=== PATIENT | female | born 1935 | race Two or more races ===

== ENCOUNTER 2016-12-03 12:55 | Emergency (ER) | payer MEDICARE, OTHER ==
[~2016-12-03] VITALS: Ht 152.4 cm; Wt 63.5 kg
[~2016-12-03 12:55] MED LIST: AMLODIPINE BESY10 MG ORAL; CIPROFLOXACIN500 M2 ORAL; COREG12.5 MG ORAL; FISH OIL500 M2 PO; FUROSEMIDE20 M1 ORAL; GLYBURIDE-METF1 EACH PO; IBUPROFEN600 MG ORAL; KEFLEX500 MG ORAL; LANTUS5 UNITS SUBQ; LISINOPRIL20 MG ORAL; METFORMIN HCL850 M1 ORAL; METOPROLOL SUC100 MG ORAL; METOPROLOL SUCC50 MG ORAL; NORCO 5-325 TA1 EAC1 ORAL; OMEPRAZOLE20 M3 ORAL; RAMIPRIL5 MG ORAL; REGULAR INSULIN SS; ZOCOR20 MG ORAL; [UNRECOGNIZED DRUG - REMARK]; [UNRECOGNIZED DRUG - REMARK]; cholesterol pill
[2016-12-03 13:22] VITALS: BP 183/68
--- NOTE | 2016-12-03 13:56 | Emergency Room Report ---
History of Present Illness General Chief Complaint: Pain Source: Patient (Parker Doshi M.D.) Present Illness HPI The patient presents with dysuria flank pain. She's not been eating well for 3 days. She's lost her appetite. Is not vomiting and has no diarrhea. Denies any fevers or chills. She started to feel weak today and her daughter brought her to the ED. Pain 6/10, bilateral flanks/lower back, not radiate. She's had UTIs in the past. H/O DM, HTN. She believes her sugars are slightly high (mid 100s). In addition, she is complaining of neuropathy pain. She is taking Gabapetin 100 mg TID. This is not helping. This pain is 8/10, burning, constant, not radiating. (Parker Doshi M.D.) Allergies: Coded Allergies: No Known Allergies (Verified , 08/26/08) Patient History Past Medical History: see triage record Social History Narrative with daughter Born in [place] Now: No Reviewed Nursing Documentation: PMH: Agreed, PSxH: Agreed (Parker Doshi M.D.) Nursing Documentation-PMH Hx Cardiac Problems: Yes Hx Hypertension: Yes Hx Diabetes: Yes Hx Cancer: No Hx Gastrointestinal Problems: Yes Hx Neurological Problems: Yes Hx Transient Ischemic Attacks: Yes (Parker Doshi M.D.) Review of Systems All Other Systems: negative except mentioned in HPI (Parker Doshi M.D.) Physical Exam Vital Signs Date Time Temp Pulse Resp B/P Pulse Ox O2 Delivery O2 Flow Rate FiO2 12/03/16 13:12 98.1 84 15 183/68 99 Room Air Sp02 EP Interpretation: reviewed, normal General Appearance: well appearing, no apparent distress, GCS 15 Head: normocephalic Eyes: bilateral eye PERRL, bilateral eye normal inspection ENT: moist mucus membranes Neck: supple Respiratory: lungs clear, normal breath sounds Cardiovascular #1: regular rate, rhythm Cardiovascular #2: 2+ radial (R) Gastrointestinal: normal inspection, normal bowel sounds, non tender, no mass, non-distended Genitourinary: no CVA tenderness Musculoskeletal: gait/station normal, normal range of motion, other - minimal back tenderness Neurologic: alert, oriented x3, grossly normal Psychiatric: mood/affect normal Skin: normal inspection, warm/dry (Parker Doshi M.D.) Medical Decision Making Diagnostic Impression: Primary Impression: UTI (urinary tract infection) Qualified Codes: N30.00 - Acute cystitis without hematuria Additional Impressions: Peripheral neuropathy Qualified Codes: G62.9 - Polyneuropathy, unspecified Diabetes Qualified Codes: E11.49 - Type 2 diabetes mellitus with other diabetic neurological complication; 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 She has dysuria flank pain and neuropathy pain. Differential includes UTI, pyelonephritis, peripheral neuropathy, renal stone, diabetes in poor control amongst others. She also feels weakness and lack of appetite. This is diabetes her heart needs to be evaluated. Evaluation will be with EKG, abdominal film, lab including urinalysis. to be treated w Pepcid. Is remarkable for a normal white count and H&H. There's mild renal insufficiency. Blood sugar is elevated. In addition she has pyuria. Antibiotic for began IV. The patient is improved with treatment. She states the pain is manageable in her extremities and also in her back. She is given a dose of metformin and also lisinopril. Offered patient to be admitted to the hospital. She wants to be treated at home. As long discussion about how her doctors needed to address her chronic pain. Also she was advised that if she is not doing well to return. She was greatly improved looking forward to getting better home. Patient stable for outpatient observation and treatment. Laboratory Tests Test 12/03/16 13:41 12/03/16 15:05 Urine Color Pale yellow Urine Appearance Clear Urine pH 5 (4.5-8.0) Urine Specific [place] 1.015 (1.005-1.035) Urine Protein 3+ (NEGATIVE) H Urine Glucose (UA) 4+ (NEGATIVE) H Urine Ketones Negative (NEGATIVE) Urine Occult Blood 2+ (NEGATIVE) H Urine Nitrite Positive (NEGATIVE) H Urine Bilirubin Negative (NEGATIVE) Urine Urobilinogen Normal MG/DL (0.0-1.0) Urine Leukocyte Esterase 3+ (NEGATIVE) H Urine RBC 5-10 /HPF (0 - 2) H Urine WBC 30-40 /HPF (0 - 2) H Urine Squamous Epithelial Cells Few /LPF (NONE/OCC) Urine Bacteria Moderate /HPF (NONE) H White Blood Count 6.8 K/UL (4.8-10.8) Red Blood Count 3.70 M/UL (4.20-5.40) L Hemoglobin 10.6 G/DL (12.0-16.0) L Hematocrit 32.6 % (37.0-47.0) L Mean Corpuscular Volume 88 FL (80-99) Mean Corpuscular Hemoglobin 28.7 PG (27.0-31.0) Mean Corpuscular Hemoglobin Concent 32.6 G/DL (32.0-36.0) Red Cell Distribution Width 12.3 % (11.6-14.8) Platelet Count 284 K/UL (150-450) Mean Platelet Volume 9.1 FL (6.5-10.1) Neutrophils (%) (Auto) 69.7 % (45.0-75.0) Lymphocytes (%) (Auto) 21.6 % (20.0-45.0) Monocytes (%) (Auto) 6.3 % (1.0-10.0) Eosinophils (%) (Auto) 1.2 % (0.0-3.0) Basophils (%) (Auto) 1.2 % (0.0-2.0) Prothrombin Time 9.8 SEC (9.30-11.50) Prothrombin Time INR 0.9 (0.9-1.1) PTT 24 SEC (23-33) Sodium Level 138 mEQ/L (135-145) Potassium Level 4.6 mEQ/L (3.4-4.9) Chloride Level 98 mEQ/L (98-107) Carbon Dioxide Level 22 mEQ/L (20-30) Anion Gap 18 (5-15) H Blood Urea Nitrogen 31 mg/dL (7-23) H Creatinine 1.3 mg/dL (0.5-0.9) H Estimate Glomerular Filtration Rate mL/min (>60) Glucose Level 303 mg/dL (74-106) H Calcium Level 9.1 mg/dL (8.6-10.2) Total Bilirubin < 0.2 mg/dL (0.0-1.2) Aspartate Amino Transferase (AST) 16 U/L (5-40) Alanine Aminotransferase (ALT) 13 U/L (3-33) Alkaline Phosphatase 58 U/L (35-104) Troponin I < 0.30 ng/mL (<=0.30) Total Protein 6.8 g/dL (6.6-8.7) Albumin 3.7 g/dL (3.5-5.2) Globulin 3.1 g/dL Albumin/Globulin Ratio 1.1 (1.0-2.7) Lipase 52 U/L (< 60) (Parkre Doshi M.D.) ER Course Urine Cx came thru showing UTI Reviewed chart, patient not sent with Rx Called patient and left VM at 1234pm. No answer. Asked Sudeep Rodas to send certified letter to patient. (JOHN LARA M.D.) Chest X-Ray Diagnostic Results Chest X-Ray Ordered: Yes # of Views/Limited/Complete: 1 View EP Interpretation: Yes Interpretation: no consolidation, no effusion, no pneumothorax Indication: Other Impression: No acute disease (Parker Doshi M.D.) Other X-Ray Diagnostic Results # of Views/Limited Vs Complete: 1 View EP Interpretation: Yes Interpretation: other - NSBGP, stool, no SBO Indication: Pain Impression: Other Interpreting ER Provider: valentine (Parker Doshi M.D.) Last Vital Signs Date Time Temp Pulse Resp B/P Pulse Ox O2 Delivery O2 Flow Rate FiO2 12/03/16 17:56 98.1 22 155/55 100 Room Air 12/03/16 13:12 84 Status: improved (Parker Doshi M.D.) Disposition: HOME, SELF-CARE Condition: Improved Scripts Ibuprofen* (MOTRIN*) 400 Mg Tablet 400 MG ORAL Q8H Y for foot pain, #20 TAB 0 Refills Prov: Parker Doshi M.D. 12/03/16 Vitamin B Complex (B COMPLETE) 1 Each Tablet 1 TAB ORAL DAILY, #30 TAB Prov: Parker Doshi M.D. 12/03/16 Tramadol Hcl* (ULTRAM*) 50 Mg Tablet 50 MG ORAL Q6H Y for For Pain, #10 TAB 0 Refills Prov: Parker Doshi M.D. 12/03/16 Parker Doshi M.D. Dec 03, 2016 13:56 JOHN LARA M.D. Dec 05, 2016 12:34
[2016-12-03] MEDS ORDERED: Famotidine 20 MG/ 2ML VIAL IVP ONE (14:00)
[2016-12-03] MEDS ORDERED: Ketorolac 30mg Inj IV ONE (14:00)
[2016-12-03 14:04] LABS: APPEARANCE,URINE CLEAR; KETONES,URINE NEGATIVE (NEGATIVE); LEUKOCYTE ESTERASE ,URINE 3+ (NEGATIVE); NITRITE,URINE POSITIVE (NEGATIVE); PH,URINE 5 (4.5-8.0); PROTEIN,URINE 3+ (NEGATIVE); UROBILINOGEN,URINE NORMAL MG/DL (0.0-1.0)
[2016-12-03 14:11] LABS: BACTERIA,URINE MODERATE /HPF; SQUAMOUS EPITHELIAL CELL,UR FEW /LPF (NONE/OCC); WBC,URINE 30-40 /HPF (0 - 2)
[2016-12-03] MEDS ORDERED: cefTRIAXone 1 GM in NS 55 ML IVPB ONE (14:45)
--- NOTE | 2016-12-03 15:13 | Diagnostic Imaging Report ---
Indication: FLANK Technique: One view of the chest Comparison: none Findings: Lungs and pleural spaces are clear. Heart size is normal. The aorta is tortuous and calcified. No significant change Impression: No acute process
[2016-12-03 15:31] LABS: BASOPHILS % (AUTO) 1.2 % (0.0-2.0); EOSINOPHILS % (AUTO) 1.2 % (0.0-3.0); LYMPHOCYTES % (AUTO) 21.6 % (20.0-45.0); MEAN CORPUSCULAR HEMOGLOBIN 28.7 PG (27.0-31.0); MEAN CORPUSCULAR HGB CONC 32.6 G/DL (32.0-36.0); MEAN CORPUSCULAR VOLUME 88 FL (80-99); MEAN PLATELET VOLUME 9.1 FL (6.5-10.1); MONOCYTES % (AUTO) 6.3 % (1.0-10.0); NEUTROPHILS % (AUTO) 69.7 % (45.0-75.0); PLATELET COUNT 284 K/UL (150-450); RED CELL DISTRIBUTION WIDTH 12.3 % (11.6-14.8); WHITE BLOOD COUNT 6.8 K/UL (4.8-10.8)
[2016-12-03 15:44] LABS: INR 0.9 (0.9-1.1); PROTHROMBIN TIME 9.8 SEC (9.30-11.50)
[2016-12-03 15:49] LABS: TROPONIN I < 0.30 ng/mL (<=0.30)
[2016-12-03 15:52] LABS: ALANINE AMINOTRANSFERASE 13 U/L (3-33); ALBUMIN/GLOBULIN RATIO 1.1 (1.0-2.7); ANION GAP 18 (5-15); ASPARTATE AMINO TRANSFERASE 16 U/L (5-40); CALCIUM 9.1 mg/dL (8.6-10.2); CARBON DIOXIDE 22 mEQ/L (20-30); CHLORIDE 98 mEQ/L (98-107); CREATININE 1.3 mg/dL (0.5-0.9); HEMOLYSIS 5; LIPASE 52 U/L (< 60); POTASSIUM 4.6 mEQ/L (3.4-4.9); SODIUM 138 mEQ/L (135-145); TOTAL PROTEIN 6.8 g/dL (6.6-8.7)
[2016-12-03] MEDS ORDERED: Lisinopril 10mg tab ORAL ONE (16:15)
[2016-12-03] MEDS ORDERED: B COMPLETE1 EAC1 ORAL (16:26)
[2016-12-03] MEDS ORDERED: IBUPROFEN400 MG ORAL (16:26)
[2016-12-03] MEDS ORDERED: TRAMADOL HCL50 MG ORAL (16:26)
[2016-12-03] MEDS: metFORMIN 500mg tab ORAL SCH ×2 (16:47→17:50)
--- NOTE | 2016-12-03 17:46 | Diagnostic Imaging Report ---
Indication: Abdominal pain Technique: Supine view of the abdomen Comparison: 06/14/2010 Findings: Bowel gas pattern is unremarkable. There are degenerative changes of the lumbosacral junction. No unusual masses or calcifications. There is evidence of interstitial disease at the lung bases Impression: Findings as noted. No definite acute process
[2016-12-03 17:54] VITALS: BP 155/55
[2016-12-03 17:56] VITALS: BP 155/55
== END 2016-12-03 18:08 | disposition home or self-care (01) ==
LOC: EMR 14:02
DX: N30.00 Acute cystitis without hematuria (principal); G62.9 Polyneuropathy, unspecified; E11.49 Type 2 diabetes mellitus with other diabetic neurological complication; I10 Essential (primary) hypertension; Z86.73 Personal history of transient ischemic attack (TIA), and cerebral infarction without residual deficits
CPT/HCPCS: 36415; 71010; 74000; 80053; 81003; 83690; 84484; 85025; 85610; 85730; 87086; 87181; 96374; 96375; 99284; J0696; J1885; J2405; J7040; S0028

== ENCOUNTER 2017-03-25 22:37 | Inpatient (IN) | payer OTHER, MEDICARE ==
[~2017-03-25] VITALS: Ht 154.9 cm; Wt 60.8 kg
[~2017-03-25 22:37] MED LIST changes: +B COMPLETE1 EAC1 ORAL; +IBUPROFEN400 MG ORAL; +NITROFURANTOIN100 M2 ORAL; +TRAMADOL HCL50 MG ORAL
[2017-03-25 23:27] LABS: BASOPHILS % (AUTO) 1.2 % (0.0-2.0); EOSINOPHILS % (AUTO) 0.8 % (0.0-3.0); LYMPHOCYTES % (AUTO) 11.9 % (20.0-45.0); MEAN CORPUSCULAR HEMOGLOBIN 29.7 PG (27.0-31.0); MEAN CORPUSCULAR HGB CONC 34.6 G/DL (32.0-36.0); MEAN CORPUSCULAR VOLUME 86 FL (80-99); MEAN PLATELET VOLUME 8.5 FL (6.5-10.1); MONOCYTES % (AUTO) 9.2 % (1.0-10.0); NEUTROPHILS % (AUTO) 76.9 % (45.0-75.0); PLATELET COUNT 353 K/UL (150-450); RED BLOOD COUNT 3.64 M/UL (4.20-5.40); WHITE BLOOD COUNT 10.4 K/UL (4.8-10.8)
[2017-03-25 23:35] LABS: ALANINE AMINOTRANSFERASE 16 U/L (12-78); ALBUMIN/GLOBULIN RATIO 0.7 (1.0-2.7); ANION GAP 9 mmol/L (5-15); ASPARTATE AMINO TRANSFERASE 14 U/L (15-37); CALCIUM 9.1 MG/DL (8.5-10.1); CARBON DIOXIDE 27 MMOL/L (21-32); CHLORIDE 99 MMOL/L (98-107); CREATININE 1.4 MG/DL (0.55-1.30); LIPASE 117 U/L (73-393); POTASSIUM 4.2 MMOL/L (3.5-5.1); SODIUM 135 MMOL/L (136-145); TOTAL PROTEIN 7.1 G/DL (6.4-8.2)
[2017-03-26] VITALS (8 sets, daily range): BP systolic 126–176; BP diastolic 56–86
--- NOTE | 2017-03-26 02:50 | Emergency Room Report ---
History of Present Illness General Chief Complaint: Abdominal Pain Source: Patient Present Illness HPI Patient presents with complaints of abdominal pain low back pain Patient had a fall yesterday he was seen at [facility] hospital Records indicate multiple imaging of the right elbow and extremities however the patient now complains that she has increased pain left upper quadrant and the lower back Denies any focal weakness denies any chest pain or shortness of breath denies any vomiting however she also does have a headache Patient feels nauseated and states that she cannot vomit Allergies: Coded Allergies: No Known Allergies (Verified , 03/25/17) Patient History Past Medical History: see triage record Pertinent Family History: unable to obtain Last Menstrual Period: n/a Reviewed Nursing Documentation: PMH: Agreed, PSxH: Agreed Nursing Documentation-PMH Past Medical History: No History, Except For Hx Cardiac Problems: Yes Hx Hypertension: Yes Hx Diabetes: Yes Hx Cancer: No Hx Gastrointestinal Problems: Yes Hx Neurological Problems: Yes Hx Transient Ischemic Attacks: Yes Review of Systems All Other Systems: negative except mentioned in HPI Physical Exam Vital Signs Date Time Temp Pulse Resp B/P (MAP) Pulse Ox O2 Delivery O2 Flow Rate FiO2 03/25/17 22:51 97.9 63 51 166/62 98 Room Air Sp02 EP Interpretation: reviewed, normal General Appearance: no apparent distress Head: normocephalic, atraumatic Eyes: bilateral eye PERRL, bilateral eye EOMI ENT: normal pharynx Neck: full range of motion, supple Respiratory: lungs clear, normal breath sounds Cardiovascular #1: regular rate, rhythm, no edema Gastrointestinal: soft, tenderness - Left upper quadrant Genitourinary: no CVA tenderness Musculoskeletal: other - Patient is tender diffusely L-spine Neurologic: alert, oriented x3, responsive Skin: no rash Lymphatic: no adenopathy Medical Decision Making Diagnostic Impression: Primary Impression: Hypertensive urgency, malignant Additional Impressions: Sacral fracture, closed Fracture of lumbar spine ER Course Given the patient's presentation and history given the abdominal pain CT imaging was obtained patient also had imaging of her lower back Radiology does reports of sacral fracture along with L2 and L3 lumbar fractures patient required pain medication here Blood pressure also has needed to be addressed Patient has difficulty ambulating and is admitted for further care Labs Test 03/25/17 23:10 White Blood Count 10.4 K/UL (4.8-10.8) Red Blood Count 3.64 M/UL (4.20-5.40) Hemoglobin 10.8 G/DL (12.0-16.0) Hematocrit 31.3 % (37.0-47.0) Mean Corpuscular Volume 86 FL (80-99) Mean Corpuscular Hemoglobin 29.7 PG (27.0-31.0) Mean Corpuscular Hemoglobin Concent 34.6 G/DL (32.0-36.0) Red Cell Distribution Width 12.0 % (11.6-14.8) Platelet Count 353 K/UL (150-450) Mean Platelet Volume 8.5 FL (6.5-10.1) Neutrophils (%) (Auto) 76.9 % (45.0-75.0) Lymphocytes (%) (Auto) 11.9 % (20.0-45.0) Monocytes (%) (Auto) 9.2 % (1.0-10.0) Eosinophils (%) (Auto) 0.8 % (0.0-3.0) Basophils (%) (Auto) 1.2 % (0.0-2.0) Sodium Level 135 MMOL/L (136-145) Potassium Level 4.2 MMOL/L (3.5-5.1) Chloride Level 99 MMOL/L (98-107) Carbon Dioxide Level 27 MMOL/L (21-32) Anion Gap 9 mmol/L (5-15) Blood Urea Nitrogen 20 mg/dL (7-18) Creatinine 1.4 MG/DL (0.55-1.30) Estimat Glomerular Filtration Rate mL/min (>60) Glucose Level 214 MG/DL (74-106) Calcium Level 9.1 MG/DL (8.5-10.1) Total Bilirubin 0.4 MG/DL (0.2-1.0) Aspartate Amino Transf (AST/SGOT) 14 U/L (15-37) Alanine Aminotransferase (ALT/SGPT) 16 U/L (12-78) Alkaline Phosphatase 60 U/L (46-116) Total Protein 7.1 G/DL (6.4-8.2) Albumin 2.9 G/DL (3.4-5.0) Globulin 4.2 g/dL Albumin/Globulin Ratio 0.7 (1.0-2.7) Lipase 117 U/L (73-393) Rhythm Strip Diag. Results EP Interpretation: yes Rate: 87 Rhythm: NSR, no PVC's, no ectopy CT/MRI/US Diagnostic Results CT/MRI/US Diagnostic Results : Impression CT abdomen pelvis: Uterine fibroid CT pelvic: Fracture mid lower sacrum CTL spine: Superior endplate L2 fracture anterior inferior of L3 fracture Last Vital Signs Date Time Temp Pulse Resp B/P (MAP) Pulse Ox O2 Delivery O2 Flow Rate FiO2 03/26/17 02:26 197/77 03/26/17 01:05 97.9 66 17 97 Room Air Status: improved Disposition: ADMITTED INPATIENT Condition: Serious Referrals: [employer],[facility]ERR[facility] (PCP) ROBERTO CARLOS PINEDO D.O. Mar 26, 2017 02:50
[2017-03-26] MEDS ORDERED: RAMIPRIL5 MG ORAL (04:48)
[2017-03-26] MEDS ORDERED: LANTUS SOL100 UNIT/1 SUBQ (04:49)
[2017-03-26] MEDS ORDERED: XARELTO10 MG ORAL (04:51)
[2017-03-26] MEDS ORDERED: Miralax 17gm pkt ORAL PRN (07:15)
[2017-03-26] MEDS ORDERED: Albuterol/Ipratropium 3ml neb HHN PRN ×2 (07:15→14:30)
[2017-03-26] MEDS ORDERED: Nitroglycerin Subl 0.4mg tab SL PRN ×2 (07:15→14:00)
[2017-03-26] MEDS ORDERED: dilTIAZem HCl 25mg/5ml Inj IV PRN ×2 (07:15→14:00)
[2017-03-26] MEDS ORDERED: Enalaprilat 2.5mg/2ml Inj IV PRN ×2 (07:15→14:00)
[2017-03-26] MEDS ORDERED: Heparin 5000 units/ml inj SUBQ SCH (09:00)
[2017-03-26] MEDS ORDERED: Carvedilol 12.5mg tab ORAL SCH (09:00)
[2017-03-26] MEDS ORDERED: Metoprolol Succinate XL 50mg tab ORAL SCH (09:00)
--- NOTE | 2017-03-26 09:52 | Diagnostic Imaging Report ---
Indication: Abdominal pain Technique: Continuous helical transaxial imaging of the abdomen and pelvis was obtained from the lung bases to the pubic symphysis during intravenous contrast administration. Separate reconstructions of the pelvis generation of a bone algorithms performed on this examination. Coronal 2-D reformats were also obtained. Study obtained in a Siemens sensation [address] Total Dose length Product (DLP): [address] Dose Index Volume (CTDIvol): 0.15, 16.38 mGy Comparison: 11/01/13 Findings: Minimal basilar atelectasis demonstrated. Small hiatal hernia is present. Gallbladder is unremarkable. The stomach is nondistended. Parapelvic and cortical cysts are present within both kidneys. There is a small umbilical hernia containing fat. Aorta is calcified. There is a right-sided enhancing mass within the uterus measuring 3 cm consistent with a fibroid. There is no free fluid or free air. There is a small right inguinal hernia containing fat. The appendix is normal. No evidence of bowel obstruction. There is narrowing of intervertebral discs and accompanying endplate osteophyte formation. Hypertrophied facet joints also demonstrated. There is loss of height of the L2 and L3 vertebra consistent with compression fracture deformities. There is vacuum cleft noted in the superior plate of L2. This is further discussed on the CT lumbar spine report. The bony pelvis: On sagittal reconstructions there is a slight indentation and irregularity of the anterior margin of the last 5 vertebra consistent with a fracture. This is probably old. Please correlate clinically. There is no evidence of soft tissue swelling associated with this. Impression: Lower sacral S5 fracture probably old. No acute findings in the abdomen or pelvis identified. Normal appendix Hiatal hernia Uterine fibroid Atherosclerotic disease Thickening of the bladder wall, mild in degree. Query cystitis. Small right inguinal hernia containing fat Small umbilical hernia containing fat. Spondylosis. Old compression fracture deformities of L2 and L3 vertebra. Osteoporosis. Mild posterior basilar atelectasis The CT scanner at [facility] is accredited by the [employer] and t The CT scanner at [facility] is accredited by the [employer] and the scans are performed using dose optimization techniques as appropriate to a performed exam including Automatic Exposure control.
--- NOTE | 2017-03-26 09:55 | Diagnostic Imaging Report ---
Indication: Back pain Technique: Continuous helical transaxial imaging of the lumbar spine was obtained from the lung bases to the pubic symphysis. No IV contrast was administered. Coronal 2-D reformats were also obtained. Study obtained in a Siemens sensation [address] Total Dose length Product (DLP): Refer to CT abdomen pelvis mGycm CT Dose Index Volume (CTDIvol): Refer to CT abdomen pelvis mGy Comparison: None Findings: There is a fracture of the superior endplate of L2. The fracture appears acute. There is depression of the superior endplate. There is a vacuum cleft within the fracture. Bones are osteopenic. There is mild loss of height of the L3 vertebra as well but without no acute fractures are seen in this location or elsewhere. Endplate spurs noted multiple locations within the lumbar spine. Facet hypertrophy noted multiple locations. Vacuum disc phenomena noted in multiple locations. There is no malalignment. Impression: Acute superior plate fracture of L2. Moderate spondylosis as described above. Osteoporosis. [facility] has communicated the preliminary results to the Emergency Department. Their findings are largely concordant with this report. The CT scanner at [facility] is accredited by the [employer] and the scans are performed using dose optimization techniques as appropriate to a performed exam including Automatic Exposure control.
--- NOTE | 2017-03-26 10:33 | Consultation ---
Consult Note Consult Note patient seen/evaluated. Lumbar spine L2 fracture acute in an elderly patient. Most likely needs a TLSO brace vs Kyphoplasty. Will ask spine surgeon evaluation and to coordinate care. Thank you JOEY GROSS Mar 26, 2017 10:33
--- NOTE | 2017-03-26 11:00 | History and Physical ---
History of Present Illness General Date patient seen: Mar 26, 2017 Reason for Hospitalization: Abdominal Pain Present Illness HPI 81 year old female with hx of HTN, DM, presented with complaints of abdominal pain low back pain. She had a fall yesterday he was seen at [facility]. however the patient now complains that she has increased pain left upper quadrant and the lower back. Her BP was high in ER, initial imaging in ER showed sacral and lumber vertebrae fracture. She is admitted to telemetry for hypertensive emergency and intractable. Allergies: Coded Allergies: No Known Allergies (Verified , 03/25/17) Medication History Scheduled Amlodipine Besylate* (Amlodipine Besylate*), 10 MG ORAL DAILY, (Reported) Carvedilol (Coreg), 12.5 MG ORAL EVERY 12 HOURS Furosemide* (Lasix*), 20 MG ORAL DAILY, (Reported) Glyburide/Metformin Hcl (Glyburide-Metformin 2.5-500 Mg), 1 EACH PO BID, ( Reported) Insulin Glargine (Lantus), 10 SUBQ BEDTIME, (Reported) Insulin Glargine (Lantus), 20 SUBQ BEDTIME, (Reported) Lisinopril (Lisinopril*), 20 MG ORAL BID, (Reported) Metformin Hcl* (Metformin Hcl*), 850 MG ORAL TID, (Reported) Metoprolol Succinate* (Metoprolol Succinate*), 50 MG ORAL BID, (Reported) Metoprolol Succinate* (Metoprolol Succinate*), 100 MG ORAL BIDAC, (Reported) Nitrofurantoin Monohyd/M-Cryst* (Macrobid 100 Mg*), 100 MG ORAL EVERY 12 HOURS Omeprazole (Omeprazole), 20 MG ORAL BID, (Reported) Ramipril* (Ramipril*), 20 MG ORAL DAILY, (Reported) Rivaroxaban (Xarelto*), 20 MG ORAL DAILY, (Reported) Simvastatin (Zocor), 80 MG ORAL BEDTIME, (Reported) Vitamin B Complex (B Complete), 1 TAB ORAL DAILY Scheduled PRN Ibuprofen* (Motrin*), 400 MG ORAL Q8H PRN for foot pain Tramadol Hcl* (Ultram*), 50 MG ORAL Q6H PRN for For Pain Patient History Healthcare decision maker Resuscitation status Full Code Advanced Directive on File No Past Medical/Surgical History Past Medical/Surgical History: (1) HTN (hypertension) (2) Diabetes (3) Peripheral neuropathy Review of Systems All Other Systems: negative except mentioned in HPI Physical Exam General Appearance: WD/WN Lines, tubes and drains: peripheral, central line HEENT: normocephalic, atraumatic Neck: non-tender, normal alignment Respiratory/Chest: chest wall non-tender, lungs clear Breasts: no masses Cardiovascular/Chest: normal peripheral pulses, normal rate, regular rhythm Abdomen: normal bowel sounds, non tender Genitourinary/Rectal: normal genital exam, normal rectal exam Extremities: normal range of motion Last 24 Hour Vital Signs Date Time Temp Pulse Resp B/P (MAP) Pulse Ox O2 Delivery O2 Flow Rate FiO2 03/26/17 10:03 91 150/80 03/26/17 10:03 91 150/80 03/26/17 08:09 97.7 91 18 150/80 96 Room Air 03/26/17 05:20 98.0 82 20 159/56 96 Room Air 03/26/17 04:53 98.0 82 20 159/56 96 Room Air 03/26/17 03:20 98.0 03/26/17 02:26 197/77 03/26/17 01:05 97.9 66 17 168/86 97 Room Air 03/25/17 22:51 97.9 63 51 166/62 98 Room Air Intake and Output 03/26/17 03/27/17 19:00 07:00 Intake Total 150 ml Balance 150 ml Intake Oral 150 ml Laboratory Tests Test 03/25/17 23:10 03/26/17 08:45 White Blood Count 10.4 K/UL (4.8-10.8) Red Blood Count 3.64 M/UL (4.20-5.40) L Hemoglobin 10.8 G/DL (12.0-16.0) L Hematocrit 31.3 % (37.0-47.0) L Mean Corpuscular Volume 86 FL (80-99) Mean Corpuscular Hemoglobin 29.7 PG (27.0-31.0) Mean Corpuscular Hemoglobin Concent 34.6 G/DL (32.0-36.0) Red Cell Distribution Width 12.0 % (11.6-14.8) Platelet Count 353 K/UL (150-450) Mean Platelet Volume 8.5 FL (6.5-10.1) Neutrophils (%) (Auto) 76.9 % (45.0-75.0) H Lymphocytes (%) (Auto) 11.9 % (20.0-45.0) L Monocytes (%) (Auto) 9.2 % (1.0-10.0) Eosinophils (%) (Auto) 0.8 % (0.0-3.0) Basophils (%) (Auto) 1.2 % (0.0-2.0) Sodium Level 135 MMOL/L (136-145) L Potassium Level 4.2 MMOL/L (3.5-5.1) Chloride Level 99 MMOL/L (98-107) Carbon Dioxide Level 27 MMOL/L (21-32) Anion Gap 9 mmol/L (5-15) Blood Urea Nitrogen 20 mg/dL (7-18) H Creatinine 1.4 MG/DL (0.55-1.30) H Estimat Glomerular Filtration Rate mL/min (>60) Glucose Level 214 MG/DL (74-106) H Calcium Level 9.1 MG/DL (8.5-10.1) Total Bilirubin 0.4 MG/DL (0.2-1.0) Aspartate Amino Transf (AST/SGOT) 14 U/L (15-37) L Alanine Aminotransferase (ALT/SGPT) 16 U/L (12-78) Alkaline Phosphatase 60 U/L (46-116) Total Protein 7.1 G/DL (6.4-8.2) Albumin 2.9 G/DL (3.4-5.0) L Globulin 4.2 g/dL Albumin/Globulin Ratio 0.7 (1.0-2.7) L Lipase 117 U/L (73-393) Troponin I 0.006 ng/mL (0.000-0.056) Height (Feet): 5 Height (Inches): 1.00 Weight (Pounds): 134 Medications Current Medications Medications (Trade) Dose Ordered Sig/Rosa Route PRN Reason Start Time Stop Time Status Last Admin Dose Admin Acetaminophen (Tylenol) 650 mg Q4H PRN ORAL T>100.5 03/26/17 07:15 04/25/17 07:14 Albuterol/ Ipratropium (DuoNeb 0.5-3(2.5)mg/3ml) 3 ml Q4H PRN HHN Shortness of Breath 03/26/17 07:15 03/31/17 07:14 Amlodipine Besylate (Norvasc) 10 mg DAILY ORAL 03/26/17 09:00 04/25/17 08:59 03/26/17 10:03 Diltiazem HCl (Cardizem) 10 mg EVERY HOUR PRN IV heart rate more than 120bpm 03/26/17 07:15 04/25/17 07:14 Enalaprilat (Vasotec) 2.5 mg Q6H PRN IV sbp more than 160mmHg 03/26/17 07:15 04/25/17 07:14 Furosemide (Lasix) 20 mg DAILY ORAL 03/26/17 09:00 04/25/17 08:59 03/26/17 10:03 Heparin Sodium (Porcine) (Heparin 5000 units/ml) 5,000 units EVERY 12 HOURS SUBQ 03/26/17 09:00 04/25/17 08:59 03/26/17 10:08 Metoprolol Succinate (Toprol XL) 50 mg Q12HR ORAL 03/26/17 09:00 04/25/17 08:59 03/26/17 10:03 Nitroglycerin (Ntg) 0.4 mg Q5MIN X 3 DOSES PRN SL Prn Chest Pain 03/26/17 07:15 04/25/17 07:14 Ondansetron HCl (Zofran) 4 mg Q6H PRN IVP Nausea & Vomiting 03/26/17 07:15 04/25/17 07:14 Pantoprazole (Protonix) 40 mg DAILY ORAL 03/26/17 09:00 04/25/17 08:59 03/26/17 10:03 Polyethylene Glycol (Miralax) 17 gm DAILYPRN PRN ORAL Constipation 03/26/17 07:15 04/25/17 07:14 Temazepam (Restoril) 15 mg HSPRN PRN ORAL Insomnia 03/26/17 21:00 04/02/17 20:59 Assessment/Plan Problem List: (1) Hypertensive urgency, malignant ICD Codes: I16.0 - Hypertensive urgency SNOMED: 059444099 (2) Diabetes ICD Codes: E11.9 - Type 2 diabetes mellitus without complications SNOMED: 42347030 (3) Fracture of lumbar spine ICD Codes: S32.009A - Unspecified fracture of unspecified lumbar vertebra, initial encounter for closed fracture SNOMED: 767560521 Assessment/Plan bp control echo pain control pain and ortho to see. dvt prophylaxis sliding scale DAYA KNOX Mar 26, 2017 11:00
--- NOTE | 2017-03-26 15:06 | Diagnostic Imaging Report ---
Indication: Back pain Technique: MRI examination of the Lumbar spine was performed in a 1.5 Harper magnet. Sequences obtained include sagittal and axial T1 and T2 fast spin echo, and sagittal STIR. No IV gadolinium was given Comparison: none Findings: There are 2 levels that show acute fracture namely L2 and L3. At L2 there is a linear low signal intensity focus that is oriented horizontally along the superior endplate consistent with an acute fracture and was seen on CT. MR also notable for a moderate degree of T2 hyperintense edema surrounding the fracture. There is minimal loss of height. There is no retropulsion identified. Associated adjacent paravertebral soft tissue T2 hyperintense edema noted. At L3, there is a linear focus oriented horizontally along the inferior endplate associated with adjacent bone marrow edema consistent with an acute fracture. There is little to no loss of height associated with this. There is early no evidence of retropulsion. This was not predicted on the basis of the CT evaluation which did not show a definite acute injury. Associated T2 hyperintense paravertebral edema noted. Bone marrow signal is otherwise normal throughout the osseous structures visualized. Mild endplate spurs and generalized hypertrophy of the lumbar facets demonstrated at multiple levels. At L3-4 there is generalized disc bulge. There is central stenosis an area of the lateral recess demonstrated. There is mild foraminal stenosis. L4-5 notable for a narrowing of the lateral recess due to facet arthropathy. L5-S1 notable for narrowing of the lateral recess especially on the right side due to facet arthropathy. There is severe right foraminal stenosis with compression of the exiting right L5 nerve root. Impression: Acute vertebral fractures involving the superior endplate of L2 (predicted by CT) and the inferior endplate of L3 (not predicted by CT). Minimal loss of height. No retropulsion or associated neural impingement. Degenerative spondylosis as described above.
[2017-03-26] MEDS: NovoLOG Insulin Flexpen SUBQ SCH ×2 (17:32→21:00)
--- NOTE | 2017-03-26 18:06 | Wound Care Consultation ---
Wound Assessment Wound Assessment : Wound Number: 1 Wound Present on Admission: Yes New Wound: No Status Change of Wound: No Wound Location Body Site Modif: left, lower, anterior Wound Location Body Site: leg Wound Type: scab - dry Daily Test: Does not Daily Wound Thickness: Full Thickness Wound Length: 0.5 Wound Width: 0.5 Percent of Wound Black/Brown: 100 Wound Drainage Amount: None Wound Drainage Odor: None/Absent Tissue Surrounding Wound: sacr tissue Wound General Appearance: Open to air, Clean/Dry Wound Comment #1 Left anterior lower leg dry scab. surrounding tissue noted with scar tissue. Recommendation -Keep clean and dry -Optimize nutrition -Offload both heels -Assess and f/u accordingly for any changes EMILY DUMONT RN Mar 26, 2017 18:06
--- NOTE | 2017-03-26 20:45 | Consultation ---
DATE OF CONSULTATION: 03/26/2017 ORTHOPEDIC CONSULTATION CONSULTING PHYSICIAN: Salvador Licona M.D. REQUESTING PHYSICIAN: Dru Chase M.D. REASON FOR CONSULTATION: Lumbar spine fracture. BRIEF HISTORY: The patient is a pleasant 81-year-old female, who had a mechanical fall and complaining of abdominal pain and lower back pain. She apparently has had a fall on 03/24/2017. She went to [facility] and multiple x-rays were obtained. These were more of her extremities. There was no fracture. She was sent home. However, she continued to have left lower quadrant pain as well as lower back pain. She denies any focal weakness, chest pain, or shortness of breath. She has back pain. She has had no numbness or tingling. She has no neurological deficits. X-rays and CT scans were obtained, which showed possible acute L2 fracture. There was also some possible transverse process fracture. Orthopedic consultation was obtained. PAST MEDICAL HISTORY: Significant for some hypertension. PAST SURGICAL HISTORY: Not available. MEDICATIONS: Please see chart. ALLERGIES: No known drug allergies. SOCIAL HISTORY: She does not smoke or drink. She is independent ambulator. She is Mauritanian speaking. REVIEW OF SYSTEMS: This is reviewed and reconciled. There is no significant finding. She is alert and oriented x3. PHYSICAL EXAMINATION: Examination of the patient today reveals she is a pleasant lady, cooperative with the examination. She is lying on her right side. Palpation of the lumbar spine revealed that she has point tenderness over the mid lumbar area superiorly as well as inferiorly. She also had tenderness over the left-sided pelvis. She does have tenderness over the pubic rami area. She has pain with internal and external rotation of the hip, although there is no tenderness over the anterior groin area. Most of her pain is over the pelvic area. Neurological examination is intact. There is no significant ecchymosis that could be appreciated. LABORATORY AND DIAGNOSTIC DATA: X-rays and CT scan, CT scan of the lumbar spine is reviewed. There is evidence of a compression fracture of L2, which is significant at about 35% of the vertebral body. There is diffuse degeneration of lumbar spine. MRIs, none were available. IMPRESSION: Possible L2 acute compression fracture with a small lip avulsion of the L3 and sacral fracture on the left side. DISCUSSION: At this time, I had a discussion with the patient. I explained to her my findings. There are 2 contradictory reports, one states an acute fracture on the CT of the lumbar spine and a CT abdomen and pelvis did mention a possible subacute fracture, therefore, at this time, we will recommend MRI of the lumbar spine to evaluate for acute nature of this fracture. This was discussed with Dr. Chase and Dr. Chase did put the order for MRI of the lumbar spine. We will also recommend that a youth services specialist see the patient. I contacted Dr. Joce Moran who will be evaluating this patient for possible TLSO bracing versus a kyphoplasty if there is acute fracture. The patient understands and agrees. All questions were answered. Meanwhile, the patient should remain on bedrest until a spinal evaluation is made. Salvador Licona M.D. DR: MU JOB#: [id number] CC:
[2017-03-26] MEDS: Metoprolol Succinate XL 50mg tab ORAL SCH (21:00)
[2017-03-26] MEDS: Heparin 5000 units/ml inj SUBQ SCH (21:00)
--- NOTE | 2017-03-26 21:02 | Cardiology Report ---
APPROVED REPORT EXAM: Two-dimensional and M-mode echocardiogram with Doppler and color Doppler. INDICATION LV function M-Mode DIMENSIONS IVSd1.5 (0.7-1.1cm)Left Atrium (MM)2.9 (1.6-4.0cm) LVDd4.0 (3.5-5.6cm)Aortic Root3.3 (2.0-3.7cm) PWd1.6 (0.7-1.1cm) IVSs2.4 cm LVDs2.7 (2.5-4.0cm) PWs1.9 cm Technically difficult study due to poor acoustical windows. Normal left ventricular chamber size, HYPERDYNAMIC systolic function and wall motion to extent visualized. Left ventricular ejection fraction estimated to be 70-75%. WITH CAVITY OBLITERATION Study quality precludes accurate assessment of regional wall motion. Mild left ventricular hypertrophy. Anterior Echo-free space, may be due to pericardial fat or effusion. All other cardiac chamber sizes are within normal limits. Focal aortic valve sclerosis with adequate cusp excursion. Thickened mitral valve leaflets with normal excursion. Mitral annulus and aortic root calcification. Pulmonic valve not well visualized. Normal tricuspid valve structure. IVC at normal size with physiologic collapse. A color flow and spectral Doppler study was performed and revealed: Trace mitral regurgitation. Mitral diastolic velocities suggest reduced left ventricular relaxation c/w mild LV diastolic dysfunction (Grade I). Trace tricuspid regurgitation. Tricuspid systolic velocities suggests peak right ventricular systolic pressure of 20 mmHg. INCLREASED VELOCITY OF FLOW AT THE LVOT / MID CAVITY SUGGESTIVE OF CAVITY OBLITERATION
[2017-03-27 00:01] VITALS: BP 125/59
[2017-03-27 04:00] VITALS: BP 123/60
[2017-03-27] MEDS: NovoLOG Insulin Flexpen SUBQ SCH ×4 (05:55→20:59)
--- NOTE | 2017-03-27 07:06 | Cardiology Progress Note ---
Assessment/Plan Assessment/Plan [id number] fall ? etiology possible syncope hyperdynamic vl systo,lic fucntion with cavity obliteration compression fx dm htn hld bp control would avoid diuretic on a regular basis as volume depletion may resutl of cavity obliteration f possible syncope in the future again Objective Last 24 Hour Vital Signs Date Time Temp Pulse Resp B/P (MAP) Pulse Ox O2 Delivery O2 Flow Rate FiO2 03/27/17 04:00 97.8 68 18 123/60 97 Room Air 03/27/17 00:01 98.1 62 18 125/59 96 Room Air 03/26/17 21:00 72 126/62 03/26/17 20:00 97.9 72 18 126/62 97 Room Air 03/26/17 17:28 176/73 03/26/17 16:11 98.8 88 20 176/73 97 Room Air 03/26/17 15:50 90 18 156/80 95 Room Air 03/26/17 15:45 98.4 91 18 163/76 94 Room Air 03/26/17 12:00 92 03/26/17 11:46 97.4 95 18 152/78 96 Room Air 03/26/17 10:03 91 150/80 03/26/17 10:03 91 150/80 03/26/17 08:09 97.7 91 18 150/80 96 Room Air 03/26/17 08:00 90 Laboratory Tests Test 03/26/17 08:45 Troponin I 0.006 ng/mL (0.000-0.056) REBEKAH HATFIELD Mar 27, 2017 07:06
[2017-03-27 07:43] LABS: PROTHROMBIN TIME 10.1 SEC (9.30-11.50)
[2017-03-27 07:45] LABS: BASOPHILS % (AUTO) 1.4 % (0.0-2.0); LYMPHOCYTES % (AUTO) 29.3 % (20.0-45.0); MEAN CORPUSCULAR HEMOGLOBIN 29.8 PG (27.0-31.0); MEAN CORPUSCULAR HGB CONC 34.5 G/DL (32.0-36.0); MEAN CORPUSCULAR VOLUME 86 FL (80-99); MEAN PLATELET VOLUME 8.1 FL (6.5-10.1); MONOCYTES % (AUTO) 9.5 % (1.0-10.0); NEUTROPHILS % (AUTO) 57.7 % (45.0-75.0); PLATELET COUNT 336 K/UL (150-450); RED CELL DISTRIBUTION WIDTH 11.9 % (11.6-14.8); WHITE BLOOD COUNT 6.5 K/UL (4.8-10.8)
[2017-03-27 08:13] LABS: ALANINE AMINOTRANSFERASE 13 U/L (12-78); ALBUMIN/GLOBULIN RATIO 0.7 (1.0-2.7); ANION GAP 11 mmol/L (5-15); ASPARTATE AMINO TRANSFERASE 14 U/L (15-37); CALCIUM 9.2 MG/DL (8.5-10.1); CARBON DIOXIDE 26 MMOL/L (21-32); CHLORIDE 103 MMOL/L (98-107); CHOLESTEROL 183 MG/DL (< 200); CHOLESTEROL/HDL RATIO 3.3 (3.3-4.4); CREATININE 1.4 MG/DL (0.55-1.30); CRP QUANT 5.2 mg/dL (0.00-0.90); POTASSIUM 4.2 MMOL/L (3.5-5.1); SODIUM 139 MMOL/L (136-145); THYROID STIMULATING HORMONE 2.251 uiU/mL (0.360-3.740); TOTAL PROTEIN 6.3 G/DL (6.4-8.2)
[2017-03-27 08:15] LABS: IRON 29 ug/dL (50-175); TOTAL IRON BINDING CAPACITY 256 ug/dL (250-450)
[2017-03-27 08:16] LABS: LACTATE DEHYDROGENASE 213 U/L (81-234)
[2017-03-27 08:20] LABS: FOLIC ACID 14.7 NG/ML (3.1-17.5)
[2017-03-27] MEDS: Metoprolol Succinate XL 50mg tab ORAL SCH ×2 (08:20→20:58)
[2017-03-27] MEDS: Heparin 5000 units/ml inj SUBQ SCH ×2 (08:21→20:59)
--- NOTE | 2017-03-27 08:25 | Consultation ---
History of Present Illness General Date patient seen: Mar 27, 2017 Chief Complaint: Abdominal Pain Present Illness Allergies: Coded Allergies: No Known Allergies (Verified , 03/25/17) Medication History Scheduled Amlodipine Besylate* (Amlodipine Besylate*), 10 MG ORAL DAILY, (Reported) Carvedilol (Coreg), 12.5 MG ORAL EVERY 12 HOURS Furosemide* (Lasix*), 20 MG ORAL DAILY, (Reported) Glyburide/Metformin Hcl (Glyburide-Metformin 2.5-500 Mg), 1 EACH PO BID, ( Reported) Insulin Glargine (Lantus), 10 SUBQ BEDTIME, (Reported) Insulin Glargine (Lantus), 20 SUBQ BEDTIME, (Reported) Lisinopril (Lisinopril*), 20 MG ORAL BID, (Reported) Metformin Hcl* (Metformin Hcl*), 850 MG ORAL TID, (Reported) Metoprolol Succinate* (Metoprolol Succinate*), 50 MG ORAL BID, (Reported) Metoprolol Succinate* (Metoprolol Succinate*), 100 MG ORAL BIDAC, (Reported) Nitrofurantoin Monohyd/M-Cryst* (Macrobid 100 Mg*), 100 MG ORAL EVERY 12 HOURS Omeprazole (Omeprazole), 20 MG ORAL BID, (Reported) Ramipril* (Ramipril*), 20 MG ORAL DAILY, (Reported) Rivaroxaban (Xarelto*), 20 MG ORAL DAILY, (Reported) Simvastatin (Zocor), 80 MG ORAL BEDTIME, (Reported) Vitamin B Complex (B Complete), 1 TAB ORAL DAILY Scheduled PRN Ibuprofen* (Motrin*), 400 MG ORAL Q8H PRN for foot pain Tramadol Hcl* (Ultram*), 50 MG ORAL Q6H PRN for For Pain Patient History Healthcare decision maker Resuscitation status Full Code Advanced Directive on File No Physical Exam Last 24 Hour Vital Signs Date Time Temp Pulse Resp B/P (MAP) Pulse Ox O2 Delivery O2 Flow Rate FiO2 03/27/17 08:20 76 158/70 03/27/17 08:20 76 158/70 03/27/17 04:00 97.8 68 18 123/60 97 Room Air 03/27/17 00:01 98.1 62 18 125/59 96 Room Air 03/26/17 21:00 72 126/62 03/26/17 20:00 97.9 72 18 126/62 97 Room Air 03/26/17 17:28 176/73 03/26/17 16:11 98.8 88 20 176/73 97 Room Air 03/26/17 15:50 90 18 156/80 95 Room Air 03/26/17 15:45 98.4 91 18 163/76 94 Room Air 03/26/17 12:00 92 03/26/17 11:46 97.4 95 18 152/78 96 Room Air 03/26/17 10:03 91 150/80 03/26/17 10:03 91 150/80 Laboratory Tests Test 03/26/17 08:45 03/27/17 04:00 03/27/17 05:20 Troponin I 0.006 ng/mL (0.000-0.056) 0.011 ng/mL (0.000-0.056) Erythrocyte Sedimentation Rate Pending Reticulocyte Count Pending White Blood Count 6.5 K/UL (4.8-10.8) Red Blood Count 3.40 M/UL (4.20-5.40) L Hemoglobin 10.1 G/DL (12.0-16.0) L Hematocrit 29.3 % (37.0-47.0) L Mean Corpuscular Volume 86 FL (80-99) Mean Corpuscular Hemoglobin 29.8 PG (27.0-31.0) Mean Corpuscular Hemoglobin Concent 34.5 G/DL (32.0-36.0) Red Cell Distribution Width 11.9 % (11.6-14.8) Platelet Count 336 K/UL (150-450) Mean Platelet Volume 8.1 FL (6.5-10.1) Neutrophils (%) (Auto) 57.7 % (45.0-75.0) Lymphocytes (%) (Auto) 29.3 % (20.0-45.0) Monocytes (%) (Auto) 9.5 % (1.0-10.0) Eosinophils (%) (Auto) 2.0 % (0.0-3.0) Basophils (%) (Auto) 1.4 % (0.0-2.0) Prothrombin Time 10.1 SEC (9.30-11.50) Prothromb Time International Ratio 1.0 (0.9-1.1) Activated Partial Thromboplast Time 31 SEC (23-33) Sodium Level 139 MMOL/L (136-145) Potassium Level 4.2 MMOL/L (3.5-5.1) Chloride Level 103 MMOL/L (98-107) Carbon Dioxide Level 26 MMOL/L (21-32) Anion Gap 11 mmol/L (5-15) Blood Urea Nitrogen 20 mg/dL (7-18) H Creatinine 1.4 MG/DL (0.55-1.30) H Estimat Glomerular Filtration Rate mL/min (>60) Glucose Level 181 MG/DL (74-106) H Calcium Level 9.2 MG/DL (8.5-10.1) Iron Level 29 ug/dL (50-175) L Total Iron Binding Capacity 256 ug/dL (250-450) Percent Iron Saturation 11 % (15-50) L Unsaturated Iron Binding 227 ug/dL (112-346) Total Bilirubin 0.3 MG/DL (0.2-1.0) Aspartate Amino Transf (AST/SGOT) 14 U/L (15-37) L Alanine Aminotransferase (ALT/SGPT) 13 U/L (12-78) Alkaline Phosphatase 51 U/L (46-116) Lactate Dehydrogenase 213 U/L (81-234) C-Reactive Protein, Quantitative 5.2 mg/dL (0.00-0.90) H Pro-B-Type Natriuretic Peptide 2394 pg/mL (0-125) H Total Protein 6.3 G/DL (6.4-8.2) L Albumin 2.5 G/DL (3.4-5.0) L Globulin 3.8 g/dL Albumin/Globulin Ratio 0.7 (1.0-2.7) L Triglycerides Level 274 MG/DL (0-200) H Cholesterol Level 183 MG/DL (< 200) LDL Cholesterol 94 mg/dL (<100) HDL Cholesterol 56 MG/DL (40-60) Cholesterol/HDL Ratio 3.3 (3.3-4.4) Vitamin B12 Level 564 PG/ML (193-986) Folate 14.7 NG/ML (3.1-17.5) Thyroid Stimulating Hormone (TSH) 2.251 uiU/mL (0.360-3.740) Height (Feet): 5 Height (Inches): 1.00 Weight (Pounds): 134 Medications Current Medications Medications (Trade) Dose Ordered Sig/Rosa Route PRN Reason Start Time Stop Time Status Last Admin Dose Admin Acetaminophen (Tylenol) 650 mg Q4H PRN ORAL T>100.5 03/26/17 14:00 04/25/17 13:59 03/26/17 15:10 Albuterol/ Ipratropium (DuoNeb 0.5-3(2.5)mg/3ml) 3 ml Q4H PRN HHN Shortness of Breath 03/26/17 14:30 03/31/17 14:29 Amlodipine Besylate (Norvasc) 10 mg DAILY ORAL 03/27/17 09:00 04/25/17 08:59 03/27/17 08:20 Clonidine HCl (Catapres) 0.1 mg Q6H PRN ORAL SBP > 160 03/26/17 18:00 04/25/17 17:59 03/26/17 17:28 Dextrose (Dextrose 50%) STAT PRN IV Hypoglycemia 03/26/17 17:00 04/25/17 16:59 Enalaprilat (Vasotec) 2.5 mg Q6H PRN IV sbp more than 160mmHg 03/26/17 14:00 04/25/17 13:59 Heparin Sodium (Porcine) (Heparin 5000 units/ml) 5,000 units EVERY 12 HOURS SUBQ 03/26/17 21:00 04/25/17 08:59 03/27/17 08:21 Insulin Aspart (NovoLOG) BEFORE MEALS AND HS SUBQ 03/26/17 18:00 04/25/17 17:59 03/27/17 05:55 Metoprolol Succinate (Toprol XL) 50 mg Q12HR ORAL 03/26/17 21:00 04/25/17 08:59 03/27/17 08:20 Nitroglycerin (Ntg) 0.4 mg Q5MIN X 3 DOSES PRN SL Prn Chest Pain 03/26/17 14:00 04/25/17 07:14 Ondansetron HCl (Zofran) 4 mg Q6H PRN IVP Nausea & Vomiting 03/26/17 14:00 04/25/17 13:59 Pantoprazole (Protonix) 40 mg DAILY ORAL 03/27/17 09:00 04/25/17 08:59 03/27/17 08:20 Polyethylene Glycol (Miralax) 17 gm DAILYPRN PRN ORAL Constipation 03/26/17 14:00 04/25/17 13:59 Temazepam (Restoril) 15 mg HSPRN PRN ORAL Insomnia 03/26/17 21:00 04/02/17 20:59 Assessment/Plan Assessment/Plan (1) Lumbar vertebral fractures (2) Lumbar DDD (3) Lumbar Spondylosis (4) Lumbar Radiculopathy seen dictated JAIME VALENCIA Mar 27, 2017 08:25
[2017-03-27] MEDS: Miralax 17gm pkt ORAL PRN (08:51)
[2017-03-27 09:23] LABS: ERYTHROCYTE SEDIMENTATION RATE 100 MM/HR (0-42)
[2017-03-27 11:09] LABS: RETICULOCYTE COUNT 2.4 % (0.0-2.0)
[2017-03-27 11:22] LABS: BAND NEUTROPHILS % (MANUAL) 0 % (0-8); BASOPHILS % (MANUAL) 1 % (0-2); EOSINOPHILS % (MANUAL) 1 % (0-3); LYMPHOCYTES % (MANUAL) 25 % (20-45); NEUTROPHILS % (MANUAL) 64 % (45-75); PLATELET ESTIMATE ADEQUATE; PLATELET MORPHOLOGY NORMAL; TOTAL CELLS COUNTED 100
[2017-03-27 12:01] LABS: PATH BLOOD SMEAR/OMC SENT TO PATHOLOGIST
--- NOTE | 2017-03-27 12:02 | Diagnostic Imaging Report ---
Indication: DYSPNEA Technique: One view of the chest Comparison: none Findings: Lungs and pleural spaces are clear. Heart size is normal. No significant change Impression: No acute process
[2017-03-27 12:08] VITALS: BP 142/67
--- NOTE | 2017-03-27 15:39 | Cardiology Report ---
APPROVED REPORT EKG Measurement Heart [id number] Normal sinus rhythm Right bundle branch block Left anterior fascicular block Bifascicular block Abnormal ECG
[2017-03-27 16:00] VITALS: BP 144/67
--- NOTE | 2017-03-27 16:15 | Consultation ---
DATE OF CONSULTATION: 03/27/2017 CARDIOLOGY CONSULTATION CONSULTING PHYSICIAN: Nick Pearl M.D. REFERRING PHYSICIAN: Dru Chase M.D. REASON FOR REFERRAL: Fall and elevated blood pressure. HISTORY OF PRESENT ILLNESS: This is an elderly female whose information was obtained from the patient directly through one of our Czech speaking staff here at the hospital. She tells me that she was walking and she suddenly fell. She does not actually remember the fall itself, but she did not trip on anything or lose balance, just fell down . She says another person that was with her at that time told that she all of sudden fell down and they picked her up initially. This happened at [facility] apparently. She was actually walking and suddenly fell. She does remember the actual fall, somebody else that was with her told that she actually has sudden fall. She denies any dizziness or balance issues prior to the fall. She apparently was complaining of some abdominal pain, lower back pain, and was taken to [facility]. Multiple x-rays were obtained, no fracture. She was sent home. She continued to have left lower quadrant pain and lower back pain and so she presented to the emergency room here at [facility] where CT scan was obtained showing evidence of possible fracture. The patient does not have any chest pain or pressure. There is no PND. There is no orthopnea. There are no palpitations. She does occasionally get dizzy when she sits up or stands up quickly, she says that is a recurrent issue with her when she sits up or stands up. PAST MEDICAL HISTORY: Positive for diabetes, high blood pressure, and high cholesterol. She has never had a heart attack. She has never had a cancer, stroke, hepatitis, tuberculosis, asthma, or emphysema. No history of ulcers. She was told that one of her kidneys does not work as much as previously. No liver problems or thyroid problems. Her previous hospitalizations here have included hospitalization for edema of lower extremity, cellulitis, chronic venous stasis as well as mixed hyperlipidemia. ALLERGIES: She denies any allergies to medications. SOCIAL HISTORY: She never smoked and never drank alcoholic beverages. She lives at home. REVIEW OF SYSTEMS: GASTROINTESTINAL: She has had some nausea, but no vomiting. No diarrhea. No bloody stools. She has had some black stools. GENITOURINARY: She denies. PULMONARY: She denies. CONSTITUTIONAL: She has occasional chills. NEUROLOGIC: She has numbness and heaviness in her legs below her knees bilaterally. PHYSICAL EXAMINATION: GENERAL: Shows to be an elderly female, in no respiratory distress. She is obese. She has laid down in the left lateral decubitus position. She appears to be comfortable. NECK: Supple. There is no jugular venous distention. Carotid upstrokes intact. LUNGS: Clear to auscultation and percussion. CARDIAC: S1 is normal. S2 is normal. Regular rate and rhythm. No heaves, thrills, gallops, or rubs are noted. ABDOMEN: Soft and nontender. Positive bowel sounds. EXTREMITIES: There is no clubbing, cyanosis, and there is no edema. NEUROLOGICAL: She is awake, alert, responsive, and in no apparent respiratory distress. LABORATORY AND DIAGNOSTIC DATA: EKG shows sinus rhythm, right bundle-branch conduction defect, left anterior fascicular block. She has had a CT scan of her abdomen and pelvis, fibroid uterus was found, portions of the appendix that were visualized were normal. The fracture of the anterior and mid lower sacrum was noted, acute appearing fracture superior endplate of L2 suggestive of fracture on the anterior inferior lip of L3, and possible acute appearing fractures of superior articular facet of L3 and L4 were noted on the CT scan. Otherwise remainder of her blood tests show white count of 10.6 with a hemoglobin 10.8, and platelet count of 353. Sodium 135, potassium 4.2, chloride 99, bicarbonate 27, BUN 20, creatinine 1.4, glucose 214, and calcium is 9.1. Troponin of 0.06. Her albumin is 2.9. Lipase of 117. No other laboratories. An echocardiogram which was personally reviewed by myself shows hyperdynamic systolic function with evidence of cavity obliteration, ejection fraction 70% to 75%, just a trace amount of mitral regurgitation, mild diastolic relaxation abnormalities, and increased flow at the level of the LVOT in the cavity suggestive of cavity obliteration. ASSESSMENT: 1. Fall, details unknown and possible syncope. 2. Lumbosacral fractures. 3. Diabetes mellitus. 4. History of hypertension. 5. History of hyperlipidemia. 6. Obesity. Dr. Chsae, this patient was seen in cardiac consultation. She has been evaluated by Orthopedic surgeon for her spinal fractures. Her echocardiogram shows hyperdynamic left ventricular systolic function, which could very well have caused inappropriate situations such as volume depletion and syncopal episode. She will require an MRI of her lumbar spine as per recommendations of orthopedist. She should have orthostatic vitals checked. I have instructed the patient to avoid getting herself dehydrated. In any case, her blood pressure was elevated at time of her admission. She is on multiple medications for blood pressure apparently, but I do not think she should be on diuretics because of her propensity for developing hypovolemic induced syncope. Other medications should be fine including lisinopril, carvedilol, and amlodipine that she is taking as well as not clear if she actually is also taking metoprolol. In either case, I think diuretics should be used very judiciously in this patient because of possible side effects of worsening cavity obliteration and possible syncope. Nick Pearl M.D. DR: TERRANCE JOB#: [id number] CC:
--- NOTE | 2017-03-27 18:32 | Consultation ---
Consult Note Consult Note L2, L3 comp Fx Assessment/Plan dict #[id number] BRACE if fails cons care, then - kyphoplasty REMI BENITEZ Mar 27, 2017 18:32
[2017-03-27 19:55] VITALS: BP 151/67
[2017-03-27] MEDS: Levemir Flexpen SUBQ SCH (21:00)
--- NOTE | 2017-03-27 22:26 | Pulmonology Progress Note ---
Assessment/Plan Problems: (1) Hypertensive urgency, malignant (2) Diabetes (3) Fracture of lumbar spine Assessment/Plan pain management d/w spine surgeon monitor BP Subjective ROS Limited/Unobtainable: No Constitutional: Reports: no symptoms HEENT: Repors: no symptoms Respiratory: Reports: no symptoms Allergies: Coded Allergies: No Known Allergies (Verified , 03/25/17) Objective Last 24 Hour Vital Signs Date Time Temp Pulse Resp B/P (MAP) Pulse Ox O2 Delivery O2 Flow Rate FiO2 03/27/17 20:58 77 151/67 03/27/17 19:55 98.2 77 20 151/67 95 Room Air 03/27/17 17:47 97.9 03/27/17 16:00 97.9 73 18 144/67 97 Room Air 03/27/17 12:08 97.9 70 18 142/67 97 Room Air 03/27/17 08:20 76 158/70 03/27/17 08:20 76 158/70 03/27/17 04:00 97.8 68 18 123/60 97 Room Air 03/27/17 00:01 98.1 62 18 125/59 96 Room Air General Appearance: WD/WN, no acute distress HEENT: normocephalic, atraumatic Respiratory/Chest: chest wall non-tender, lungs clear Breasts: no masses Cardiovascular: normal peripheral pulses Abdomen: normal bowel sounds, soft, non tender Extremities: no cyanosis, no clubbing 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, no motor/sensory deficits Laboratory Tests 03/27/17 05:20: White Blood Count 6.5, Red Blood Count 3.40L, Hemoglobin 10.1L, Hematocrit 29.3L , Mean Corpuscular Volume 86, Mean Corpuscular Hemoglobin 29.8, Mean Corpuscular Hemoglobin Concent 34.5, Red Cell Distribution Width 11.9, Platelet Count 336, Mean Platelet Volume 8.1, Neutrophils (%) (Auto) 57.7, Lymphocytes (% ) (Auto) 29.3, Monocytes (%) (Auto) 9.5, Eosinophils (%) (Auto) 2.0, Basophils ( %) (Auto) 1.4, Differential Total Cells Counted 100, Neutrophils % (Manual) 64, Lymphocytes % (Manual) 25, Monocytes % (Manual) 9, Eosinophils % (Manual) 1, Basophils % (Manual) 1, Band Neutrophils 0, Platelet Estimate Adequate, Platelet Morphology Normal, Red Blood Cell Morphology Normal, Erythrocyte Sedimentation Rate 100H, Reticulocyte Count 2.4H, Prothrombin Time 10.1, Prothromb Time International Ratio 1.0, Activated Partial Thromboplast Time 31, Sodium Level 139, Potassium Level 4.2, Chloride Level 103, Carbon Dioxide Level 26, Anion Gap 11, Blood Urea Nitrogen 20H, Creatinine 1.4H, Estimat Glomerular Filtration Rate , Glucose Level 181H, Calcium Level 9.2, Iron Level 29L, Total Iron Binding Capacity 256, Percent Iron Saturation 11L, Unsaturated Iron Binding 227, Total Bilirubin 0.3, Aspartate Amino Transf (AST/SGOT) 14L, Alanine Aminotransferase (ALT/SGPT) 13, Alkaline Phosphatase 51, Lactate Dehydrogenase 213, Troponin I 0.011, C-Reactive Protein, Quantitative 5.2H, Pro- B-Type Natriuretic Peptide 2394H, Total Protein 6.3L, Albumin 2.5L, Globulin 3.8 , Albumin/Globulin Ratio 0.7L, Triglycerides Level 274H, Cholesterol Level 183, LDL Cholesterol 94, HDL Cholesterol 56, Cholesterol/HDL Ratio 3.3, Vitamin B12 Level 564, Folate 14.7, Thyroid Stimulating Hormone (TSH) 2.251 03/27/17 05:50: Hemoglobin A1c 12.3H Current Medications Medications (Trade) Dose Ordered Sig/Rosa Route PRN Reason Start Time Stop Time Status Last Admin Dose Admin Acetaminophen (Tylenol) 650 mg Q4H PRN ORAL severe pain or T>100.5 03/27/17 09:00 04/26/17 08:59 03/27/17 16:48 Albuterol/ Ipratropium (DuoNeb 0.5-3(2.5)mg/3ml) 3 ml Q4H PRN HHN Shortness of Breath 03/26/17 14:30 03/31/17 14:29 Amlodipine Besylate (Norvasc) 10 mg DAILY ORAL 03/27/17 09:00 04/25/17 08:59 03/27/17 08:20 Clonidine HCl (Catapres) 0.1 mg Q6H PRN ORAL SBP > 160 03/26/17 18:00 04/25/17 17:59 03/26/17 17:28 Dextrose (Dextrose 50%) STAT PRN IV Hypoglycemia 03/26/17 17:00 04/25/17 16:59 Enalaprilat (Vasotec) 2.5 mg Q6H PRN IV sbp more than 160mmHg 03/26/17 14:00 04/25/17 13:59 Heparin Sodium (Porcine) (Heparin 5000 units/ml) 5,000 units EVERY 12 HOURS SUBQ 03/26/17 21:00 04/25/17 08:59 03/27/17 20:59 Insulin Aspart (NovoLOG) BEFORE MEALS AND HS SUBQ 03/26/17 18:00 04/25/17 17:59 03/27/17 20:59 Insulin Aspart (NovoLOG) 5 units NOVOTIAC SUBQ 03/28/17 06:30 04/27/17 06:29 Insulin Detemir (Levemir) 15 units BEDTIME SUBQ 03/27/17 21:00 04/26/17 20:59 03/27/17 21:00 Lidocaine (Lidoderm 5% PATCH) 1 patch DAILY TDERMAL 03/27/17 09:00 04/26/17 08:59 03/27/17 10:18 Metoprolol Succinate (Toprol XL) 50 mg Q12HR ORAL 03/26/17 21:00 04/25/17 08:59 03/27/17 20:58 Nitroglycerin (Ntg) 0.4 mg Q5MIN X 3 DOSES PRN SL Prn Chest Pain 03/26/17 14:00 04/25/17 07:14 Ondansetron HCl (Zofran) 4 mg Q6H PRN IVP Nausea & Vomiting 03/26/17 14:00 04/25/17 13:59 03/27/17 19:51 Pantoprazole (Protonix) 40 mg DAILY ORAL 03/27/17 09:00 04/25/17 08:59 03/27/17 08:20 Polyethylene Glycol (Miralax) 17 gm DAILYPRN PRN ORAL Constipation 03/26/17 14:00 04/25/17 13:59 03/27/17 08:51 Temazepam (Restoril) 15 mg HSPRN PRN ORAL Insomnia 03/26/17 21:00 04/02/17 20:59 DAYA KNOX Mar 27, 2017 22:26
--- NOTE | 2017-03-27 23:45 | Consultation ---
DATE OF CONSULTATION: 03/27/2017 SPINE SURGICAL CONSULTATION CONSULTING PHYSICIAN: Joce Moran M.D. REASON FOR CONSULTATION: Spinal fracture. HISTORY OF PRESENT ILLNESS: The patient is an 81-year-old woman who was admitted through the emergency room status post ground level fall, question whether this was syncopal or due to balance disturbance. In either case, the history was obtained through the family member who indicates that she has had multiple falls over the course of the last several months. She states that she fell down resulting in pain in the back. She was seen at [facility]. X-rays ordered and was sent home. Subsequently she was admitted to [facility] due to intractable pain and imaging studies confirmed spinal compression fractures. Spine surgical consultation has been obtained. The patient does have a chronic history of back pain with intermittent radiation into both lower extremities. PAST MEDICAL HISTORY: Significant for diabetes, high blood pressure, high cholesterol, history of multiple falls in the past. ALLERGIES: No known drug allergies. MEDICATIONS: I have reviewed the medication reconciliation report. PHYSICAL EXAMINATION: GENERAL: The patient is an elderly woman, she is lying on her side. SPINE: Palpation of the lumbar spine demonstrates tenderness at the thoracolumbar junction as well as at the lumbosacral junction in the midline and off towards the right side. She does have tenderness along the right hemipelvis. I had reviewed Dr. Licona's consultation and at that time she had left-sided pelvic tenderness. There is tenderness along the right lateral hip. Neurologically, grossly motor and sensory examination are nonfocal although difficult to assess due to the patient's pain. DIAGNOSTIC DATA: CT scan of lumbar spine confirms superior endplate compression fracture at L2. MRI of the lumbar spine demonstrate superior endplate fracture of L2 as well as vertebral body fracture without compression at L3. There is also evidence of moderate spinal stenosis at L3-L4, and L4-L5. There is severe foraminal stenosis right side at L5 and S1. DIAGNOSES: 1. L2-L3 spinal compression fractures. 2. Multiple medical comorbidities. PLAN: At this point, I have had a lengthy and josafat discussion with the patient. I have discussed with her as well as her two daughters and a grandson the treatment options of kyphoplasty versus bracing. At this point, I am recommending a brace based on the patient's medical comorbidities in the event that she fails conservative treatment (intractable pain and/or progression of fracture) then the kyphoplasty would be in order. I have taken the liberty to discuss with the nurse to order TLSO versus Cem versus LUNA brace. I will see the patient in outpatient followup. Joce Marina Moran DR: Linsey JOB#: [id number] CC:
[2017-03-28] VITALS: BP 147/72
--- NOTE | 2017-03-28 02:15 | Consultation ---
DATE OF CONSULTATION: 03/27/2017 CONSULTING PHYSICIAN: Jesu Arnold M.D. REFERRING PHYSICIAN: Dru Chase M.D. REASON FOR CONSULTATION: Diabetes management. HISTORY OF PRESENT ILLNESS: The patient is a very pleasant 81-year-old female with longstanding history of diabetes who has been treated with multiple daily injection of insulin for the past few years. The patient's diabetes is managed by her physicians at [facility]. She presented to the hospital on 03/25/2017 with a chief complaint of abdominal pain and lower back pain. Diabetes was out of control today. Therefore, Endocrinology was consulted. Evaluation revealed a lumbar spine L2 fracture. The patient apparently a candidate for kyphoplasty, also evaluated by Orthopedic surgeon as well as spine service Dr. Joce Moran. PAST MEDICAL HISTORY: 1. Diabetes. 2. Hypertension. 3. Hypercholesterolemia. 4. Chronic kidney disease. MEDICATIONS: Reviewed and reconciled. ALLERGIES TO MEDICATION: None. SOCIAL HISTORY: No smoking, alcohol, or drug abuse. FAMILY HISTORY: Positive for diabetes. REVIEW OF SYSTEMS: A 12-point review of systems was performed, pertinent positives and negatives are as mentioned in the history of present illness. LABORATORY DATA: WBC is 6.5, hemoglobin 10.1, hematocrit 29.3, and platelets of 336. Sodium is 139, potassium 4.2, chloride 102, bicarbonate 26, BUN 20, creatinine 1.4, and glucose of 181. Calcium 9.2. TSH of 2.5. Point of care glucose are 244, 291, 172, 202, and 378. DIAGNOSES: 1. Lumbar compression fracture. 2. Osteoporosis. 3. Diabetes out of control. 4. Chronic kidney disease. PLAN: 1. I will start the patient on Levemir 15 units at bedtime. 2. I will start NovoLog 5 units before each meal. 3. Continue with NovoLog sliding scale. 4. Further adjustment according to blood glucose values. I will follow her during the hospital stay for management of diabetes. Thank you, Dr. Chase, for the courtesy of this consultation. Jesu Arnold M.D. DR: MARY LOU JOB#: [id number] CC: PHILIP
[2017-03-28 04:00] VITALS: BP 158/67
[2017-03-28] MEDS: NovoLOG Insulin Flexpen SUBQ SCH ×7 (06:12→21:10)
[2017-03-28 08:00] VITALS: BP 153/75
--- NOTE | 2017-03-28 08:46 | General Progress Note ---
Assessment/Plan Assessment/Plan (1) Lumbar vertebral fractures (2) Lumbar DDD (3) Lumbar Spondylosis (4) Lumbar Radiculopathy Pt to be continued on Tylenol and Lidoderm patch D/w Dr. Carballo and he concurred. Subjective Date patient seen: Mar 28, 2017 Time patient seen: 07:00 - am Constitutional: Reports: weakness HEENT: Reports: no symptoms Cardiovascular: Reports: no symptoms Respiratory: Reports: no symptoms Gastrointestinal/Abdominal: Reports: no symptoms Genitourinary: Reports: no symptoms Neurologic/Psychiatric: Reports: weakness Endocrine: Reports: no symptoms Allergies: Coded Allergies: No Known Allergies (Verified , 03/25/17) Subjective Patient is in bed and c/o 8/10 pain reports that the patch and tylenol has helped her tolerate the pain reducing it to a 5/10, she was seen by surgeon and a brace was ordered. Objective Last 24 Hour Vital Signs Date Time Temp Pulse Resp B/P (MAP) Pulse Ox O2 Delivery O2 Flow Rate FiO2 03/28/17 08:00 97.0 89 19 153/75 95 Room Air 03/28/17 04:00 98.2 70 18 158/67 96 Room Air 03/28/17 00:00 97.9 80 18 147/72 96 Room Air 03/27/17 20:58 77 151/67 03/27/17 19:55 98.2 77 20 151/67 95 Room Air 03/27/17 17:47 97.9 03/27/17 16:00 97.9 73 18 144/67 97 Room Air 03/27/17 12:08 97.9 70 18 142/67 97 Room Air Laboratory Tests 03/28/17 04:30: Troponin I 0.014 Height (Feet): 5 Height (Inches): 1.00 Weight (Pounds): 134 General Appearance: no apparent distress, alert EENT: PERRL/EOMI, normal ENT inspection Neck: non-tender, normal alignment Cardiovascular: normal rate, regular rhythm Respiratory/Chest: lungs clear, normal breath sounds Abdomen: non tender, soft Extremities: non-tender Edema: no edema noted Arm (L), no edema noted Arm (R), no edema noted Leg (L), no edema noted Leg (R), no edema noted Pedal (L), no edema noted Pedal (R), no edema noted Generalized Neurologic: alert, oriented x 3 Skin: warm/dry JAIME VALENCIA Mar 28, 2017 08:46
[2017-03-28] MEDS: Miralax 17gm pkt ORAL PRN (08:47)
[2017-03-28] MEDS: Metoprolol Succinate XL 50mg tab ORAL SCH ×2 (08:47→20:59)
[2017-03-28] MEDS: Heparin 5000 units/ml inj SUBQ SCH ×2 (08:49→21:00)
--- NOTE | 2017-03-28 09:02 | Consultation ---
DATE OF CONSULTATION: 03/27/2017 PAIN MANAGEMENT CONSULTATION CONSULTING PHYSICIAN: Hugo Carballo M.D. REFERRING PHYSICIAN: Dru Chase M.D. PHYSICIAN MANAGER MEDICAL DEVICE: Anthony Liang CHIEF COMPLAINT: Low back pain. HISTORY OF PRESENT ILLNESS: This is an 81-year-old female, who is being seen on the Medical/Surgical floor of [facility] for initial comprehensive pain management consultation. The patient reports that she has been having low back pain. MRI of the lumbar spine showed multiple vertebral fractures and recommended spinal surgery consultation, possible TLSO bracing versus kyphoplasty. At this time, we were consulted so that the patient would have adequate pain control while here in the hospital. PAST MEDICAL HISTORY: Hypertension. MEDICATIONS: Coreg, Lasix, glyburide, Lantus, metformin, metoprolol, Macrobid, omeprazole, ramipril, Xarelto, Zocor, ibuprofen, and Ultram. ALLERGIES: No known drug allergies. SOCIAL HISTORY: Denies smoking tobacco, drinking alcohol, or drug abuse. REVIEW OF SYSTEMS: Denies rash, fever, chills, sweating, dizziness, drowsiness, blurred vision, sore throat, or change in weight. No shortness of breath or chest pain. No nausea, vomiting, diarrhea, or blood in the stool or urine. No bowel or bladder incontinence. No dysuria. She is complaining of back pain. PHYSICAL EXAMINATION: GENERAL: Alert, awake, and oriented. VITAL SIGNS: Blood pressure 158/78, saturation 97%, respiratory rate is 18, and temperature is 97.8 degrees Fahrenheit. HEENT: PERRLA. NECK: Range of motion is full in all directions. No tenderness to paracervical muscles. No adenopathy. LUNGS: Clear. HEART: Regular. ABDOMEN: Benign. BACK: Range of motion is decreased in flexion and extension. No tenderness to paraspinal muscles. No tenderness to trapezius or rhomboid muscles. EXTREMITIES: Upper extremity range of motion is full in all directions. Motor is intact. No cyanosis. No clubbing. No edema. Sensory is intact. Reflexes are unobtainable. No adenopathy. Lower extremity range of motion is decreased due to the patient's clinical condition. Motor is 4/5 in all muscles bilaterally. No cyanosis. No clubbing. No edema. Sensory is intact. Reflexes are unobtainable. No adenopathy. ASSESSMENT AND PLAN: This is an 81-year-old female with lumbar vertebral fractures. Lumbar DDD, radiculopathy and spondylosis. The patient will continue on Tylenol 650 mg one tablet every four hours as needed for severe pain. We will order a Lidoderm patch to be applied to the back at the site of pain 12 hours on and 12 hours off. Recommending spinal surgical consultation at this time. The patient was discussed with Dr. Carballo and Dr. Carballo concurred. We will follow the patient. Thank you very much for the courtesy of this consultation. Hugo Carballo M.D. MARLENY Liang DR: Brock JOB#: [id number] CC: PHILIP
[2017-03-28 11:55] LABS: OTHERS PATHOLOGIST COMMENT
[2017-03-28 12:00] VITALS: BP 161/69
[2017-03-28 16:00] VITALS: BP 146/61
[2017-03-28] MEDS: traMADol 50mg tab ORAL PRN (19:01)
[2017-03-28 19:19] VITALS: BP 155/68
[2017-03-28] MEDS ORDERED: D5 1/2NS 1000ml IV ONE (19:43)
[2017-03-28] MEDS: Levemir Flexpen SUBQ SCH (21:09)
--- NOTE | 2017-03-28 21:44 | Pulmonology Progress Note ---
Assessment/Plan Problems: (1) Hypertensive urgency, malignant (2) Diabetes (3) Fracture of lumbar spine Assessment/Plan pain management d/w spine surgeon monitor BP pt opted for a brace dc home when brace available Subjective ROS Limited/Unobtainable: No Constitutional: Reports: no symptoms HEENT: Repors: no symptoms Respiratory: Reports: no symptoms Allergies: Coded Allergies: No Known Allergies (Verified , 03/25/17) Objective Last 24 Hour Vital Signs Date Time Temp Pulse Resp B/P (MAP) Pulse Ox O2 Delivery O2 Flow Rate FiO2 03/28/17 20:59 77 155/68 03/28/17 20:00 97.7 03/28/17 19:19 97.7 77 20 155/68 94 Room Air 03/28/17 16:00 98.4 71 18 146/61 94 Room Air 03/28/17 12:00 98.1 67 19 161/69 98 Room Air 03/28/17 09:47 97.0 03/28/17 08:47 89 153/75 03/28/17 08:47 89 153/75 03/28/17 08:00 97.0 89 19 153/75 95 Room Air 03/28/17 04:00 98.2 70 18 158/67 96 Room Air 03/28/17 00:00 97.9 80 18 147/72 96 Room Air Intake and Output 03/28/17 03/29/17 19:00 07:00 # Bowel Movements 1 General Appearance: WD/WN HEENT: normocephalic, atraumatic Respiratory/Chest: chest wall non-tender, lungs clear Breasts: no masses Cardiovascular: normal peripheral pulses, normal rate Abdomen: normal bowel sounds, soft, non tender Genitourinary: normal external genitalia Extremities: no cyanosis 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, no motor/sensory deficits Laboratory Tests 03/28/17 04:30: Troponin I 0.014 Current Medications Medications (Trade) Dose Ordered Sig/Rosa Route PRN Reason Start Time Stop Time Status Last Admin Dose Admin Acetaminophen (Tylenol) 650 mg Q4H PRN ORAL severe pain or T>100.5 03/27/17 09:00 04/26/17 08:59 03/28/17 08:48 Albuterol/ Ipratropium (DuoNeb 0.5-3(2.5)mg/3ml) 3 ml Q4H PRN HHN Shortness of Breath 03/26/17 14:30 03/31/17 14:29 Amlodipine Besylate (Norvasc) 10 mg DAILY ORAL 03/27/17 09:00 04/25/17 08:59 03/28/17 08:47 Clonidine HCl (Catapres) 0.1 mg Q6H PRN ORAL SBP > 160 03/26/17 18:00 04/25/17 17:59 03/26/17 17:28 Dextrose (Dextrose 50%) STAT PRN IV Hypoglycemia 03/26/17 17:00 04/25/17 16:59 Enalaprilat (Vasotec) 2.5 mg Q6H PRN IV sbp more than 160mmHg 03/26/17 14:00 04/25/17 13:59 Heparin Sodium (Porcine) (Heparin 5000 units/ml) 5,000 units EVERY 12 HOURS SUBQ 03/26/17 21:00 04/25/17 08:59 03/28/17 21:00 Insulin Aspart (NovoLOG) BEFORE MEALS AND HS SUBQ 03/26/17 18:00 04/25/17 17:59 03/28/17 21:10 Insulin Aspart (NovoLOG) 5 units NOVOTIAC SUBQ 03/28/17 06:30 04/27/17 06:29 03/28/17 16:16 Insulin Detemir (Levemir) 15 units BEDTIME SUBQ 03/27/17 21:00 04/26/17 20:59 03/28/17 21:09 Lidocaine (Lidoderm 5% PATCH) 1 patch DAILY TDERMAL 03/27/17 09:00 04/26/17 08:59 03/28/17 08:47 Metoprolol Succinate (Toprol XL) 50 mg Q12HR ORAL 03/26/17 21:00 04/25/17 08:59 03/28/17 20:59 Nitroglycerin (Ntg) 0.4 mg Q5MIN X 3 DOSES PRN SL Prn Chest Pain 03/26/17 14:00 04/25/17 07:14 Ondansetron HCl (Zofran) 4 mg Q6H PRN IVP Nausea & Vomiting 03/26/17 14:00 04/25/17 13:59 03/28/17 19:05 Pantoprazole (Protonix) 40 mg DAILY ORAL 03/27/17 09:00 04/25/17 08:59 03/28/17 08:47 Polyethylene Glycol (Miralax) 17 gm DAILYPRN PRN ORAL Constipation 03/26/17 14:00 04/25/17 13:59 03/28/17 08:47 Temazepam (Restoril) 15 mg HSPRN PRN ORAL Insomnia 03/26/17 21:00 04/02/17 20:59 Tramadol HCl (Ultram) 50 mg Q4H PRN ORAL severe pain 03/28/17 12:30 04/04/17 12:29 03/28/17 19:01 DAYA KNOX Mar 28, 2017 21:44
[2017-03-29 00:12] VITALS: BP 139/68
[2017-03-29 03:25] VITALS: BP 184/72
[2017-03-29] MEDS: NovoLOG Insulin Flexpen SUBQ SCH ×4 (06:16→12:03)
[2017-03-29 08:00] VITALS: BP 142/59
--- NOTE | 2017-03-29 08:35 | Pulmonology Progress Note ---
Assessment/Plan Assessment/Plan ASSESSMENT s/p mechanical fall acute L2L3 spinal compression fracture HTN urgency DOOC CKD acute back pain possible meningioma PLAN OF CARE MS floor pain management pain specialist followed imaging reviewed ortho eval appreciated kyphoplasty vs TLSO brace, recommended spine surgery eval spine surgeon evaluation appreciated due to multiple comorbidities recommended conservative treatment with bracing If conservative treatment fails, consider kyphoplasty awaiting for brace fup with spine surgeon as outpatient fall precautions PT/OT Cardio eval appreciated BP control with CCB and BB optimize as needed avoid diuretics ( can lead to dehydration and possibly syncope) ECHO with hyperdynamic systolic function EF70-75% , evidence of cavity obliteration endo consult appreciated on short acting pre-meal and long acting insulin and SS of insulin prn - [id number] not at goal, need optimization of BS regimen as outpt DVT GI prophylaxis bowel regimen CT head noted , possible meningioma MRI brain with contrast as outpatient as recommended -discussed with daughter family will roller picker medical record when ready for PMD to review dc today after brace delivered case discussed and evaluated by supervising physician Subjective Allergies: Coded Allergies: No Known Allergies (Verified , 03/25/17) Subjective pain slightly improved family at the bedside awaiting for brace Objective Last 24 Hour Vital Signs Date Time Temp Pulse Resp B/P (MAP) Pulse Ox O2 Delivery O2 Flow Rate FiO2 03/29/17 06:09 189/75 03/29/17 03:25 96.8 67 20 184/72 95 Room Air 03/29/17 00:12 97.3 63 20 139/68 94 Room Air 03/28/17 20:59 77 155/68 03/28/17 20:00 97.7 03/28/17 19:19 97.7 77 20 155/68 94 Room Air 03/28/17 16:00 98.4 71 18 146/61 94 Room Air 03/28/17 12:00 98.1 67 19 161/69 98 Room Air 03/28/17 09:47 97.0 03/28/17 08:47 89 153/75 03/28/17 08:47 89 153/75 General Appearance: WD/WN, no acute distress HEENT: normocephalic, atraumatic, anicteric, mucous membranes moist, PERRL Respiratory/Chest: lungs clear, no respiratory distress, no accessory muscle use Cardiovascular: normal rate, regular rhythm, no JVD Abdomen: normal bowel sounds, soft, non tender, non distended Neurologic/Psychiatric: abnormal gait - due to pain , alert, oriented x 3, responsive Musculoskeletal: atrophy - BLE Current Medications Medications (Trade) Dose Ordered Sig/[place] Route PRN Reason Start Time Stop Time Status Last Admin Dose Admin Acetaminophen (Tylenol) 650 mg Q4H PRN ORAL severe pain or T>100.5 03/27/17 09:00 04/26/17 08:59 03/28/17 08:48 Albuterol/ Ipratropium (DuoNeb 0.5-3(2.5)mg/3ml) 3 ml Q4H PRN HHN Shortness of Breath 03/26/17 14:30 03/31/17 14:29 Amlodipine Besylate (Norvasc) 10 mg DAILY ORAL 03/27/17 09:00 04/25/17 08:59 03/28/17 08:47 Clonidine HCl (Catapres) 0.1 mg Q6H PRN ORAL SBP > 160 03/26/17 18:00 04/25/17 17:59 03/29/17 06:09 Dextrose (Dextrose 50%) STAT PRN IV Hypoglycemia 03/26/17 17:00 04/25/17 16:59 Enalaprilat (Vasotec) 2.5 mg Q6H PRN IV sbp more than 160mmHg 03/26/17 14:00 04/25/17 13:59 Heparin Sodium (Porcine) (Heparin 5000 units/ml) 5,000 units EVERY 12 HOURS SUBQ 03/26/17 21:00 04/25/17 08:59 03/28/17 21:00 Insulin Aspart (NovoLOG) BEFORE MEALS AND HS SUBQ 03/26/17 18:00 04/25/17 17:59 03/29/17 06:17 Insulin Aspart (NovoLOG) 5 units NOVOTIAC SUBQ 03/28/17 06:30 04/27/17 06:29 03/29/17 06:16 Insulin Detemir (Levemir) 15 units BEDTIME SUBQ 03/27/17 21:00 04/26/17 20:59 03/28/17 21:09 Lidocaine (Lidoderm 5% PATCH) 1 patch DAILY TDERMAL 03/27/17 09:00 04/26/17 08:59 03/28/17 08:47 Metoprolol Succinate (Toprol XL) 50 mg Q12HR ORAL 03/26/17 21:00 04/25/17 08:59 03/28/17 20:59 Nitroglycerin (Ntg) 0.4 mg Q5MIN X 3 DOSES PRN SL Prn Chest Pain 03/26/17 14:00 04/25/17 07:14 Ondansetron HCl (Zofran) 4 mg Q6H PRN IVP Nausea & Vomiting 03/26/17 14:00 04/25/17 13:59 03/28/17 19:05 Pantoprazole (Protonix) 40 mg DAILY ORAL 03/27/17 09:00 04/25/17 08:59 03/28/17 08:47 Polyethylene Glycol (Miralax) 17 gm DAILYPRN PRN ORAL Constipation 03/26/17 14:00 04/25/17 13:59 03/28/17 08:47 Temazepam (Restoril) 15 mg HSPRN PRN ORAL Insomnia 03/26/17 21:00 04/02/17 20:59 Tramadol HCl (Ultram) 50 mg Q4H PRN ORAL severe pain 03/28/17 12:30 04/04/17 12:29 03/28/17 19:01 [facility] BairesLewis [facility] HospitalKate Armando NP Mar 29, 2017 08:35
[2017-03-29 08:39] VITALS: BP 189/75
[2017-03-29] MEDS: Heparin 5000 units/ml inj SUBQ SCH (08:39)
[2017-03-29] MEDS: Metoprolol Succinate XL 50mg tab ORAL SCH (08:39)
--- NOTE | 2017-03-29 08:39 | General Progress Note ---
Assessment/Plan Assessment/Plan (1) Lumbar vertebral fractures (2) Lumbar DDD (3) Lumbar Spondylosis (4) Lumbar Radiculopathy Pt to be continued on Tramadol 50mg PO 1 tab Q4H PRN severe pain, Tylenol and Lidoderm patch. Pt will be going for CT of brain due to headache as per Dr. Chase. D/w Dr. Carballo and he concurred. Subjective Date patient seen: Mar 29, 2017 Time patient seen: 07:00 - am Allergies: Coded Allergies: No Known Allergies (Verified , 03/25/17) Subjective Constitutional: Reports: weakness HEENT: Reports: Headache Cardiovascular: Reports: no symptoms Respiratory: Reports: no symptoms Gastrointestinal/Abdominal: Reports: no symptoms Genitourinary: Reports: no symptoms Neurologic/Psychiatric: Reports: weakness Endocrine: Reports: no symptoms Subjective Patient had been c/o back pain which had been severe while on the Tylenol caused by increase PT and was started on Tramadol which helped to reduce her pain. She had been c/o headache and will be going for CT of brain as per Dr. Chase. Objective Last 24 Hour Vital Signs Date Time Temp Pulse Resp B/P (MAP) Pulse Ox O2 Delivery O2 Flow Rate FiO2 03/29/17 06:09 189/75 03/29/17 03:25 96.8 67 20 184/72 95 Room Air 03/29/17 00:12 97.3 63 20 139/68 94 Room Air 03/28/17 20:59 77 155/68 03/28/17 20:00 97.7 03/28/17 19:19 97.7 77 20 155/68 94 Room Air 03/28/17 16:00 98.4 71 18 146/61 94 Room Air 03/28/17 12:00 98.1 67 19 161/69 98 Room Air 03/28/17 09:47 97.0 03/28/17 08:47 89 153/75 03/28/17 08:47 89 153/75 Height (Feet): 5 Height (Inches): 1.00 Weight (Pounds): 134 Objective General Appearance: no apparent distress, alert EENT: PERRL/EOMI, normal ENT inspection Neck: non-tender, normal alignment Cardiovascular: normal rate, regular rhythm Respiratory/Chest: lungs clear, normal breath sounds Abdomen: non tender, soft Extremities: non-tender Edema: no edema noted Arm (L), no edema noted Arm (R), no edema noted Leg (L), no edema noted Leg (R), no edema noted Pedal (L), no edema noted Pedal (R), no edema noted Generalized Neurologic: alert, oriented x 3 Skin: warm/dry JAIME VALENCIA Mar 29, 2017 08:39
[2017-03-29] MEDS: traMADol 50mg tab ORAL PRN (08:40)
--- NOTE | 2017-03-29 09:16 | Diagnostic Imaging Report ---
Indications: Trauma from fall, head pain Technique: Spiral acquisitions obtained through the brain. Angled axial and coronal 5 x 5 mm slices were reconstructed. Total dose length product 1337 mGycm. CTDI vol(s) 70 mGy. Dose reduction achieved using automated exposure control Comparison: 06/07/2009 Findings: No acute hemorrhage or edema. No mass effect or midline shift. There is minimal periventricular deep white matter chronic ischemic change. There is a suprasellar mass which is high in attenuation, measures 2.3 x 2.3 x 1.5 cm, increased in size from the previous exam, at which time transverse and AP dimensions were 1.6 and 1.4 cm. Normal anthony-white differentiation. There are physiologic bilateral basal ganglia calcifications. The calvarium is intact. Visualized orbits and sinuses are unremarkable. Impression: Somewhat high attenuation suprasellar mass, measuring 2.3 x 2.3 x 1.5 cm, increased in size from prior study of 06/07/2009. Appearance nonspecific but likely a meningioma. If this is not been previously worked up, consider contrast MRI for further evaluation. Mild age-related changes Negative for acute intracranial bleed or mass effect. The CT scanner at [facility] is accredited by the [employer] and the scans are performed using protocols designed to limit radiation exposure to as low as reasonably achievable to attain images of sufficient resolution adequate for diagnostic evaluation.
--- NOTE | 2017-03-29 12:08 | Discharge Instructions ---
Discharge Instructions Discharge Instructions Follow up with: primary doctor and spine surgeon Call MD/Return to Hospital if: intractable pain, unable to ambulate Diet: diabetic calorie control, cardiac 2 GM Na, low fat Special Instructions 1. Follow up with spine surgeon 2. Follow up with primary docttor for MRI brain with contrast For Congestive Heart Failure Reminder Report to your physician any weight gain of 5 pounds or more in one week. Hosea (BenKate gipson NP Mar 29, 2017 12:08
[2017-03-29] MEDS ORDERED: LEVEMIR FL100 UNIT/1 SUBQ (12:12)
[2017-03-29] MEDS ORDERED: NOVOLOG100 UNITS1 SUBQ (12:12)
[2017-03-29] MEDS ORDERED: LIDODERM700 M1 TDERMAL (12:12)
--- NOTE | 2017-04-01 12:05 | Discharge Summary ---
Discharge Summary Hospital Course Date of Admission Mar 26, 2017 at 03:02 Date of Discharge Mar 29, 2017 at 16:32 Admitting Diagnosis hypertensive urgency, sacral, lumbar fractures HPI Lilian Oden is a 81 year old female who was admitted on Mar 26, 2017 at 03: 02 for Hypertensive Urgency,Sacral, Lumbar Fractures Hospital Course dc summary #[id number] Discharge Medications New Medications: Insulin Aspart (Novolog Flexpen) 100 Unit/1 Ml Insuln.pen 5 UNITS SUBQ NOVOTIAC, #1 EA Insulin Detemir (Levemir Flexpen) 100 Unit/1 Ml Insuln.pen 15 UNITS SUBQ BEDTIME, #1 EA Lidocaine (Lidoderm) 1 Each Adh..patch 1 PATCH TDERMAL DAILY, #30 PATCH Continued Medications: Amlodipine Besylate* (Amlodipine Besylate*) 10 Mg Tablet 10 MG ORAL DAILY, TAB Ibuprofen* (Motrin*) 400 Mg Tablet 400 MG ORAL Q8H PRN for foot pain, #20 TAB 0 Refills Metformin Hcl* (Metformin Hcl*) 850 Mg Tablet 850 MG ORAL TID, TAB Metoprolol Succinate* (Metoprolol Succinate*) 50 Mg Tab.er.24h 50 MG ORAL BID Omeprazole (Omeprazole) 20 Mg Tablet.dr 20 MG ORAL BID, TAB Simvastatin (Zocor) 20 Mg Tablet 80 MG ORAL BEDTIME, TAB Tramadol Hcl* (Ultram*) 50 Mg Tablet 50 MG ORAL Q6H PRN for For Pain, #10 TAB 0 Refills Vitamin B Complex (B Complete) 1 Each Tablet 1 TAB ORAL DAILY, #30 TAB Discontinued Medications: Insulin Glargine (Lantus) 5 Units Vial 10 SUBQ BEDTIME, #1 EA 0 Refills Insulin Glargine (Lantus) 100 Unit/1 Ml Insuln.pen 20 SUBQ BEDTIME, #1 EA 0 Refills Metoprolol Succinate* (Metoprolol Succinate*) 100 Mg Tab.er.24h 100 MG ORAL BIDAC, TAB Discharge Condition Upon Discharge: stable Discharge Disposition Patient was discharged to Home () Discharge Diagnoses: Discharge Instructions Discharge Instructions Follow up with: primary doctor and spine surgeon Call MD/Return to Hospital if: intractable pain, unable to ambulate Kate Jc NP (Vanchtein) Apr 01, 2017 12:05
--- NOTE | 2017-04-01 22:00 | Discharge Summary 2 SIG ---
DATE OF ADMISSION: 03/26/2017 DATE OF DISCHARGE: 03/29/2017 REASON FOR ADMISSION: 81 years old female with a history of hypertension and diabetes, presented with complaints of low back and abdominal pain. Apparently, she had a mechanical fall, a day prior to presentation to ED. She was seen in the [facility]. The patient complained of increased pain in the left upper quadrant and in the lower back. Blood pressure was elevated in the emergency department. Initial imaging revealed sacral and lumbar vertebral fractures. The patient was admitted for hypertensive urgency intractable back pain, and acute fracture of lumbar spine. HOSPITAL STAY: The patient was admitted. Spine CT revealed acute superior plate fracture of L2. Moderate spondylosis. Pelvis CT revealed lower sacral S5 fracture, probably old, no acute findings in the abdomen or pelvis identified, spondylosis. Lumbar spine MRI revealed acute vertebral fractures involving the superior endplate of L2 and the inferior endplate of L3, no retropulsion or associated neural impingement. child care specialist consulted along with the orthopedic surgeon. Pain specialist was followed. Pain was controlled with established analgesic regimen. Orthopedic surgeon recommended kyphoplasty versus TLSO brace, but recommended spine surgery consult. Per spine surgeon, due to multiple comorbidities, he recommended conservative treatment with bracing initially. If conservative treatment fails, then he will consider kyphoplasty. Brace was ordered and dispensed upon discharge. The patient to follow up with the spine surgeon as outpatient, discussed extensively with family. The patient was on fall precautions. The patient was working with physical and occupational therapists. Escalator Mechanic seen and evaluated the patient due to hypertensive urgency. Blood pressure was managed with calcium-channel saul and beta-saul. Antihypertensive medication regimen was optimized. Escalator Mechanic recommended to avoid diuretics, which could lead to dehydration and possibly syncope. Echocardiogram revealed hyperdynamic systolic function with ejection fraction of 70 to 75% and evidence of cavity obliteration. Mandarin Chinese Teacher seen and evaluated the patient. The patient was on short-acting pre-meal insulin and long-acting insulin as well as a sliding scale of insulin as needed. Hemoglobin A1c -12.3, clearly not at goal. The patient needs outpatient optimization of blood sugar regimen. DVT and GI prophylaxis provided. Bowel regimen was instituted. CT of the head revealed possible meningioma. Discussed extensively with the daughter and recommended outpatient MRI with contrast as recommended by the radiologist in the hospital for further workup. Creatinine stayed in the same range. Family was recommended to avoid nephrotoxics and particularly nonsteroid anti-inflammatory drugs. Discussed with the family how to obtain medical records. The patient was stable for discharge. FINAL DIAGNOSES: 1. Status post mechanical fall 2. Acute L2-L3 spinal compression fracture. 3. Hypertensive urgency, resolved. 4. Diabetes mellitus, out of control. 5. Chronic kidney disease. 6. Acute back pain. 7. Possible meningioma. DISCHARGE MEDICATIONS: See medication reconciliation list. DISCHARGE INSTRUCTIONS: The patient was discharged home. Follow up with the spine surgeon as outpatient. Home health was arranged for this patient for PT,OT, however, family declined the home health services. The patient was dispensed TLSO brace and 3 to 1 bedside commode. Follow up with primary medical doctor next week. Patient need better optimization of antiglycemic regimen. monitor blood pressure. Family was recommended MRI of the brain as outpatient for further workup. Dru Chase M.D. Kate TobiasDarin gipson DR: CAMPBELL JOB#: [id number] CC: PHILIP
== END 2017-03-29 16:32 | disposition home health service (06) | DRG 347 ==
LOC: EMR 23:01 → 2E 03-26 03:02 → EDBEDREQ 03-26 04:16 → 4W 03-26 13:47
DX: S32.028A Other fracture of second lumbar vertebra, initial encounter for closed fracture (principal); E11.22 Type 2 diabetes mellitus with diabetic chronic kidney disease; E11.65 Type 2 diabetes mellitus with hyperglycemia; S32.038A Other fracture of third lumbar vertebra, initial encounter for closed fracture; I16.0 Hypertensive urgency; Z91.81 History of falling; E78.5 Hyperlipidemia, unspecified; W19.XXXA Unspecified fall, initial encounter; I12.9 Hypertensive chronic kidney disease with stage 1 through stage 4 chronic kidney disease, or unspecified chronic kidney disease; N18.9 Chronic kidney disease, unspecified; D32.9 Benign neoplasm of meninges, unspecified; S32.10XD Unspecified fracture of sacrum, subsequent encounter for fracture with routine healing; M51.16 Intervertebral disc disorders with radiculopathy, lumbar region; M47.896 Other spondylosis, lumbar region; E66.9 Obesity, unspecified; M81.0 Age-related osteoporosis without current pathological fracture; Z79.4 Long term (current) use of insulin; R51 Headache
CPT/HCPCS: 36415; 70450; 71010; 72131; 72148; 72192; 74177; 80053; 80061; 82607; 82746; 82962; 83036; 83540; 83550; 83615; 83690; 83880; 84443; 84484; 85007; 85025; 85044; 85060; 85610; 85651; 85730; 86140; 93005; 93306; 99285; J1815; J2405; S5561

== ENCOUNTER 2017-07-19 15:14 | Emergency (ER) | payer MEDICARE, OTHER ==
[~2017-07-19] VITALS: Ht 154.9 cm; Wt 68.0 kg
[~2017-07-19 15:14] MED LIST changes: +LANTUS SOL100 UNIT/1 SUBQ; +LEVEMIR FL100 UNIT/1 SUBQ; +LIDODERM700 M1 TDERMAL; +NOVOLOG100 UNITS1 SUBQ; +XARELTO10 MG ORAL
[2017-07-19 15:30] VITALS: BP 206/77
[2017-07-19] MEDS ORDERED: Sodium Chloride 500ML 500 ML IV ONE (15:44)
[2017-07-19 16:04] LABS: BASOPHILS % (AUTO) 0.9 % (0.0-2.0); HEMATOCRIT 29.7 % (37.0-47.0); HEMOGLOBIN 9.8 G/DL (12.0-16.0); LYMPHOCYTES % (AUTO) 16.5 % (20.0-45.0); MEAN CORPUSCULAR VOLUME 84 FL (80-99); MONOCYTES % (AUTO) 7.2 % (1.0-10.0); NEUTROPHILS % (AUTO) 73.5 % (45.0-75.0); PLATELET COUNT 292 K/UL (150-450); RED BLOOD COUNT 3.52 M/UL (4.20-5.40); RED CELL DISTRIBUTION WIDTH 13.2 % (11.6-14.8); WHITE BLOOD COUNT 7.8 K/UL (4.8-10.8)
--- NOTE | 2017-07-19 16:15 | Diagnostic Imaging Report ---
Indications: Altered mental status, weakness Technique: Spiral acquisitions obtained through the brain. Angled axial and coronal 5 x 5 mm slices were reconstructed. Total dose length product 1379.6 mGycm. CTDI vol(s) 70.38 mGy. Dose reduction achieved using automated exposure control Comparison: 03/29/2017 Findings: There is a supersellar mass measuring 23 x 22 mm, appears similar to the previous study. This results in local mass effect. No acute intracranial hemorrhage or edema. No other mass effect. No midline shift. There is age-related enlargement of the ventricles and extra axial CSF spaces. There is periventricular deep white matter low attenuation consistent with chronic ischemic change. There is evidence of prior cataract surgery bilaterally. The sinuses demonstrate minimal mucosal thickening. There is some mastoid opacification on the right. The calvarium is intact. Impression: Chronic and age-related changes 23 x 22 mm suprasellar mass, also previously reported, most likely meningioma. Consider MRI with contrast for further evaluation if this has not been worked up previously. Negative for acute intracranial bleed or edema The CT scanner at [facility] is accredited by the [employer] and the scans are performed using protocols designed to limit radiation exposure to as low as reasonably achievable to attain images of sufficient resolution adequate for diagnostic evaluation.
[2017-07-19 16:22] LABS: ANION GAP 10 mmol/L (5-15); BLOOD UREA NITROGEN 32 mg/dL (7-18); CALCIUM 8.5 MG/DL (8.5-10.1); CARBON DIOXIDE 24 MMOL/L (21-32); CHLORIDE 104 MMOL/L (98-107); CREATININE 1.2 MG/DL (0.55-1.30); POTASSIUM 4.8 MMOL/L (3.5-5.1); SODIUM 138 MMOL/L (136-145)
--- NOTE | 2017-07-19 16:33 | Diagnostic Imaging Report ---
Indication: Shortness of breath Technique: One view of the chest Comparison: 03/27/2017 Findings: The heart is borderline enlarged. Lungs and pleural spaces are clear. No significant interim change Impression: Borderline cardiomegaly. No acute process
[2017-07-19 16:35] LABS: ALANINE AMINOTRANSFERASE 17 U/L (12-78); ALBUMIN 3.1 G/DL (3.4-5.0); ALBUMIN/GLOBULIN RATIO 0.9 (1.0-2.7); ALKALINE PHOSPHATASE 52 U/L (46-116); ASPARTATE AMINO TRANSFERASE 20 U/L (15-37); BILIRUBIN,TOTAL 0.2 MG/DL (0.2-1.0); CKMB 2.1 NG/ML (0.0-3.6); CREATINE KINASE 117 U/L (26-308)
[2017-07-19 17:16] VITALS: BP 192/71
--- NOTE | 2017-07-19 23:05 | Emergency Room Report ---
History of Present Illness General Chief Complaint: Abnormal Labs Source: Patient, Family Member, Medical Record Present Illness HPI 81-year-old female presents ED for evaluation. Daughter at bedside states that patient's blood sugar was low this morning at home. Sugar in the 60s. Patient is a diabetic and gets insulin. Accu-Chek in triage was in the 200s. Patient also complaining of weakness in her legs and tingling sensation in her lips. Denies slurred speech or facial droop. Denies chest pain or shortness of breath. Denies fevers or chills. No other aggravating relieving factors. Denies any other associated symptoms Allergies: Coded Allergies: No Known Allergies (Verified , 03/25/17) Patient History Past Medical History: none Past Surgical History: none Pertinent Family History: none Social History: Denies: smoking, alcohol use, drug use Now: No Immunizations: UTD Reviewed Nursing Documentation: PMH: Agreed, PSxH: Agreed Nursing Documentation-PMH Past Medical History: No History, Except For Hx Cardiac Problems: Yes Hx Hypertension: Yes Hx Diabetes: Yes Hx Cancer: No Hx Gastrointestinal Problems: Yes Hx Neurological Problems: Yes Hx Transient Ischemic Attacks: Yes Review of Systems All Other Systems: negative except mentioned in HPI Physical Exam Vital Signs Date Time Temp Pulse Resp B/P (MAP) Pulse Ox O2 Delivery O2 Flow Rate FiO2 07/19/17 15:20 99.1 75 18 206/77 96 Room Air Sp02 EP Interpretation: reviewed, normal General Appearance: no apparent distress, alert, GCS 15, non-toxic Head: normocephalic, atraumatic Eyes: bilateral eye normal inspection, bilateral eye PERRL ENT: hearing grossly normal, normal pharynx, no angioedema, normal voice Neck: full range of motion, supple/symm/no masses Respiratory: chest non-tender, lungs clear, normal breath sounds, speaking full sentences Cardiovascular #1: regular rate, rhythm, no edema Cardiovascular #2: 2+ carotid (R), 2+ carotid (L), 2+ radial (R), 2+ radial (L) , 2+ dorsalis pedis (R), 2+ dorsalis pedis (L) Gastrointestinal: normal bowel sounds, non tender, soft, non-distended, no guarding, no rebound Rectal: deferred Genitourinary: normal inspection, no CVA tenderness Musculoskeletal: back normal, gait/station normal, normal range of motion, non- tender Neurologic: alert, oriented x3, responsive, motor strength/tone normal, sensory intact, speech normal Psychiatric: judgement/insight normal, memory normal, mood/affect normal, no suicidal/homicidal ideation Reflexes: 3+ bicep (R), 3+ bicep (L), 3+ tricep (R), 3+ tricep (L), 3+ knee (R) , 3+ knee (L) Skin: normal color, no rash, warm/dry, well hydrated Lymphatic: no adenopathy Medical Decision Making Diagnostic Impression: Primary Impression: Weakness ER Course Hospital Course 81-year-old female presents to ED with low blood sugar at home. Feeling weak Differential diagnoses include: arrythmia, dehydration, intracranial bleed, seizure, hypoglycemia Clinical course Patient placed on stretcher. on cardiac cath lab radiology technologist. After initial history and physical I ordered labs, EKG, chest Xray, IVFs, CT Brain labs reviewed- no leukocytosis, Hb/Hct stable, electrolytes > 200, troponins negative CT Brain - suprasellar mass unchanged from prior CT Chest x-ray- cardiomegaly EKG - RBBB no acute ischemic changes interpreted by me patient feels better. Discussed findings with the patient and family. Offered option for admission but patient wants to be discharge. Daughter agrees. Given negative workup I believe patient be safely discharged pending close outpatient followup I. I feel this is a highly complex case requiring extensive working including EKG/Rhythm strip, Xray/CT/US, Blood/urine lab work, repeat exams while in ED, and administration of strong opiates/narcotics for pain control, admission to hospital or close patient follow up. Diagnosis - weakness Stable and discharged to home. Followup with PMD. Return to ED if symptoms recur or worsen Labs Test 07/19/17 15:45 White Blood Count 7.8 K/UL (4.8-10.8) Red Blood Count 3.52 M/UL (4.20-5.40) Hemoglobin 9.8 G/DL (12.0-16.0) Hematocrit 29.7 % (37.0-47.0) Mean Corpuscular Volume 84 FL (80-99) Mean Corpuscular Hemoglobin 27.8 PG (27.0-31.0) Mean Corpuscular Hemoglobin Concent 33.1 G/DL (32.0-36.0) Red Cell Distribution Width 13.2 % (11.6-14.8) Platelet Count 292 K/UL (150-450) Mean Platelet Volume 8.7 FL (6.5-10.1) Neutrophils (%) (Auto) 73.5 % (45.0-75.0) Lymphocytes (%) (Auto) 16.5 % (20.0-45.0) Monocytes (%) (Auto) 7.2 % (1.0-10.0) Eosinophils (%) (Auto) 2.0 % (0.0-3.0) Basophils (%) (Auto) 0.9 % (0.0-2.0) Sodium Level 138 MMOL/L (136-145) Potassium Level 4.8 MMOL/L (3.5-5.1) Chloride Level 104 MMOL/L (98-107) Carbon Dioxide Level 24 MMOL/L (21-32) Anion Gap 10 mmol/L (5-15) Blood Urea Nitrogen 32 mg/dL (7-18) Creatinine 1.2 MG/DL (0.55-1.30) Estimat Glomerular Filtration Rate mL/min (>60) Glucose Level 225 MG/DL (74-106) Calcium Level 8.5 MG/DL (8.5-10.1) Total Bilirubin 0.2 MG/DL (0.2-1.0) Aspartate Amino Transf (AST/SGOT) 20 U/L (15-37) Alanine Aminotransferase (ALT/SGPT) 17 U/L (12-78) Alkaline Phosphatase 52 U/L (46-116) Total Creatine Kinase 117 U/L (26-308) Creatine Kinase MB 2.1 NG/ML (0.0-3.6) Creatine Kinase MB Relative Index 1.7 Troponin I 0.009 ng/mL (0.000-0.056) Total Protein 6.4 G/DL (6.4-8.2) Albumin 3.1 G/DL (3.4-5.0) Globulin 3.3 g/dL Albumin/Globulin Ratio 0.9 (1.0-2.7) EKG Diagnostic Results Rate: normal Rhythm: NSR ST Segments: no acute changes ASA given to the pt in ED: No Rhythm Strip Diag. Results EP Interpretation: yes Rhythm: NSR, no PVC's, no ectopy Chest X-Ray Diagnostic Results Chest X-Ray Diagnostic Results : Chest X-Ray Ordered: Yes # of Views/Limited/Complete: 1 View Indication: Other - weakness EP Interpretation: Yes Interpretation: no consolidation, no effusion, no pneumothorax, no acute cardiopulmonary disease Impression: No acute disease Electronically Signed by: Electronically signed by Nate Rincon MD CT/MRI/US Diagnostic Results CT/MRI/US Diagnostic Results : Imaging Test Ordered: CT HEad Impression suprasellar mass. unchanged from previous CT. Last Vital Signs Date Time Temp Pulse Resp B/P (MAP) Pulse Ox O2 Delivery O2 Flow Rate FiO2 07/19/17 17:16 74 18 192/71 96 Room Air 07/19/17 17:11 99.1 Status: improved Disposition: HOME, SELF-CARE Condition: Stable Patient Instructions: Hyperglycemia, [id number] NATE RINCON M.D. Jul 19, 2017 23:05
--- NOTE | 2017-07-21 15:16 | Cardiology Report ---
APPROVED REPORT EKG Measurement Heart [id number] Normal sinus rhythm Right bundle branch block Cannot rule out Anterior infarct, age undetermined Abnormal ECG
== END 2017-07-19 17:21 | disposition home or self-care (01) ==
LOC: EMR 15:30
DX: R53.1 Weakness (principal); E11.9 Type 2 diabetes mellitus without complications; I10 Essential (primary) hypertension; R22.0 Localized swelling, mass and lump, head; I45.10 Unspecified right bundle-branch block
CPT/HCPCS: 36415; 70450; 71045; 80053; 82550; 82553; 84484; 85025; 93005; 96360; 99284

== ENCOUNTER 2017-08-25 01:28 | Emergency (ER) | payer MEDICARE, OTHER ==
[~2017-08-25] VITALS: Ht 157.5 cm; Wt 72.6 kg
[2017-08-25 01:35] VITALS: BP 90/31
--- NOTE | 2017-08-25 01:49 | Emergency Room Report ---
History of Present Illness General Chief Complaint: Altered Level of Consciousness Source: Family Member, Medical Record Present Illness HPI This is an 82-year-old female with a history diabetes and high blood pressure. According to her daughter also history of renal insufficiency. Patient presents with altered mental status from low blood sugar. Her daughter said that there were in [facility], [place] and was on the way to [place]. 2 hours ago patient was fine no blood sugar was 200. She took her insulin and also her diabetes pill. He only has small amount of food. They were driving and as the daughter was talking the patient she noticed that the response was getting slower and slower and then patient became unresponsive. The daughter said her skin was very clammy and cold. She drove the patient here. Blood sugar here was low. Allergies: Coded Allergies: No Known Allergies (Verified , 03/25/17) Patient History Past Medical History: see triage record, old chart reviewed, DM, HTN, renal disease Past Surgical History: other Pertinent Family History: none Social History: Denies: smoking Last Menstrual Period: none Now: No Immunizations: other Reviewed Nursing Documentation: PMH: Agreed, PSxH: Agreed Nursing Documentation-PMH Hx Cardiac Problems: Yes - hyperlipidemia Hx Hypertension: Yes Hx Diabetes: Yes Hx Cancer: No Hx Gastrointestinal Problems: Yes Hx Neurological Problems: Yes Hx Transient Ischemic Attacks: Yes Review of Systems Eye: Denies: eye pain, blurred vision ENT: Denies: ear pain, nose congestion, throat swelling Respiratory: Denies: cough, shortness of breath Cardiovascular: Denies: chest pain, palpitations Gastrointestinal: Denies: abdominal pain, diarrhea, nausea, vomiting Musculoskeletal: Denies: back pain, joint pain Skin: Denies: rash Neurological: Denies: headache, numbness Endocrine: Denies: increased thirst, increased urine Hematologic/Lymphatic: Denies: easy bruising All Other Systems: negative except mentioned in HPI Physical Exam Vital Signs Date Time Temp Pulse Resp B/P (MAP) Pulse Ox O2 Delivery O2 Flow Rate FiO2 08/25/17 01:30 96.9 55 18 90/31 99 Room Air 97.0 vitals with hypothermia and hypotension Sp02 EP Interpretation: reviewed, normal General Appearance: well appearing, no apparent distress, alert Head: normocephalic, atraumatic Eyes: bilateral eye PERRL, bilateral eye EOMI ENT: hearing grossly normal, normal pharynx Neck: full range of motion, supple, no meningismus Respiratory: chest non-tender, lungs clear, normal breath sounds Cardiovascular #1: regular rate, rhythm, no murmur Gastrointestinal: normal bowel sounds, non tender, no mass, no organomegaly, no bruit, non-distended Musculoskeletal: back normal, normal range of motion Neurologic: grossly normal Psychiatric: mood/affect normal Skin: warm/dry Medical Decision Making Diagnostic Impression: Primary Impression: Hypoglycemia due to type 1 diabetes mellitus ER Course Patient with hypoglycemia. This secondary to insulin. She did not eat after taking insulin. She is much improved after eating here. Normalize. We'll discharge home. No evidence of CVA or TIA. No evidence of infection. EKG Diagnostic Results Rate: normal Rhythm: NSR ST Segments: no acute changes Rhythm Strip Diag. Results Rhythm Strip Time: 01:51 EP Interpretation: yes Rate: 64 Rhythm: NSR, no PVC's, no ectopy Last Vital Signs Date Time Temp Pulse Resp B/P (MAP) Pulse Ox O2 Delivery O2 Flow Rate FiO2 08/25/17 01:30 96.9 55 18 90/31 99 Room Air 97.0 Status: improved Disposition: HOME, SELF-CARE Condition: Stable Additional Instructions: Follow-up with your doctor in 7 days. Return if worse. MIRANDA TORRES M.D. Aug 25, 2017 01:48
[2017-08-25 02:00] LABS: BASOPHILS % (AUTO) 1.4 % (0.0-2.0); EOSINOPHILS % (AUTO) 1.9 % (0.0-3.0); LYMPHOCYTES % (AUTO) 32.4 % (20.0-45.0); MEAN CORPUSCULAR VOLUME 83 FL (80-99); MONOCYTES % (AUTO) 7.2 % (1.0-10.0); NEUTROPHILS % (AUTO) 57.2 % (45.0-75.0); PLATELET COUNT 367 K/UL (150-450); RED BLOOD COUNT 3.23 M/UL (4.20-5.40); RED CELL DISTRIBUTION WIDTH 12.1 % (11.6-14.8); WHITE BLOOD COUNT 7.6 K/UL (4.8-10.8)
[2017-08-25 02:03] LABS: ANION GAP 9 mmol/L (5-15); BLOOD UREA NITROGEN 39 mg/dL (7-18); CALCIUM 8.2 MG/DL (8.5-10.1); CARBON DIOXIDE 25 MMOL/L (21-32); CHLORIDE 106 MMOL/L (98-107); CREATININE 1.8 MG/DL (0.55-1.30); POTASSIUM 3.7 MMOL/L (3.5-5.1); SODIUM 140 MMOL/L (136-145)
[2017-08-25 02:04] VITALS: BP 123/41
[2017-08-25 02:09] LABS: ALANINE AMINOTRANSFERASE 17 U/L (12-78); ALBUMIN 2.3 G/DL (3.4-5.0); ALBUMIN/GLOBULIN RATIO 0.6 (1.0-2.7); ALKALINE PHOSPHATASE 48 U/L (46-116); ASPARTATE AMINO TRANSFERASE 16 U/L (15-37); BILIRUBIN,TOTAL 0.2 MG/DL (0.2-1.0)
[2017-08-25 04:40] VITALS: BP 110/68
[2017-08-25 04:50] VITALS: BP 110/68
--- NOTE | 2017-08-27 18:42 | Cardiology Report ---
APPROVED REPORT EKG Measurement Heart [id number] Sinus bradycardia Right bundle branch block Abnormal ECG
== END 2017-08-25 04:50 | disposition home or self-care (01) ==
LOC: EMR 02:00
DX: E10.649 Type 1 diabetes mellitus with hypoglycemia without coma (principal); Z79.4 Long term (current) use of insulin; Z86.73 Personal history of transient ischemic attack (TIA), and cerebral infarction without residual deficits; I10 Essential (primary) hypertension; E78.5 Hyperlipidemia, unspecified
CPT/HCPCS: 36415; 80053; 82962; 85025; 93005; 96361; 96374; 99284

== ENCOUNTER 2017-09-03 16:33 | Emergency (ER) | payer MEDICARE, OTHER ==
[~2017-09-03] VITALS: Ht 154.9 cm; Wt 61.2 kg
[2017-09-03 16:56] VITALS: BP 165/71
[2017-09-03] MEDS ORDERED: Lidocaine 2% Visc 15ml soln ORAL ONE (17:30)
[2017-09-03] MEDS ORDERED: Dicyclomine HCl 10mg/5ml oral soln ORAL ONE (17:30)
[2017-09-03] MEDS ORDERED: Mylanta II UD 30ml ORAL ONE (17:30)
[2017-09-03] MEDS ORDERED: Sodium Chloride 500ML 500 ML IV ONE (17:30)
[2017-09-03 17:57] LABS: BASOPHILS % (AUTO) 0.8 % (0.0-2.0); EOSINOPHILS % (AUTO) 1.4 % (0.0-3.0); HEMATOCRIT 27.9 % (37.0-47.0); HEMOGLOBIN 9.4 G/DL (12.0-16.0); LYMPHOCYTES % (AUTO) 20.4 % (20.0-45.0); MEAN CORPUSCULAR VOLUME 83 FL (80-99); MONOCYTES % (AUTO) 7.4 % (1.0-10.0); NEUTROPHILS % (AUTO) 69.9 % (45.0-75.0); PLATELET COUNT 321 K/UL (150-450); RED BLOOD COUNT 3.36 M/UL (4.20-5.40); RED CELL DISTRIBUTION WIDTH 12.6 % (11.6-14.8); WHITE BLOOD COUNT 8.8 K/UL (4.8-10.8)
[2017-09-03 18:16] LABS: ANION GAP 10 mmol/L (5-15); BLOOD UREA NITROGEN 31 mg/dL (7-18); CALCIUM 8.5 MG/DL (8.5-10.1); CARBON DIOXIDE 25 MMOL/L (21-32); CHLORIDE 104 MMOL/L (98-107); CREATININE 1.1 MG/DL (0.55-1.30); POTASSIUM 3.9 MMOL/L (3.5-5.1); SODIUM 139 MMOL/L (136-145)
[2017-09-03 18:21] LABS: ALANINE AMINOTRANSFERASE 18 U/L (12-78); ALBUMIN 2.7 G/DL (3.4-5.0); ALBUMIN/GLOBULIN RATIO 0.8 (1.0-2.7); ALKALINE PHOSPHATASE 52 U/L (46-116); ASPARTATE AMINO TRANSFERASE 17 U/L (15-37); BILIRUBIN,TOTAL 0.2 MG/DL (0.2-1.0)
[2017-09-03 18:32] LABS: APPEARANCE,URINE SLIGHTLY CLOUDY; BILIRUBIN, URINE NEGATIVE (NEGATIVE); COLOR,URINE PALE YELLOW; GLUCOSE, URINE (UA) NEGATIVE (NEGATIVE); KETONES,URINE NEGATIVE (NEGATIVE); LEUKOCYTE ESTERASE ,URINE 2+ (NEGATIVE); NITRITE,URINE POSITIVE (NEGATIVE); PH,URINE 6.5 (4.5-8.0); PROTEIN,URINE 3+ (NEGATIVE); UROBILINOGEN,URINE NORMAL MG/DL (0.0-1.0)
[2017-09-03] MEDS ORDERED: LOPERAMIDE2 MG PO (18:58)
[2017-09-03] MEDS ORDERED: KEFLEX500 MG ORAL (18:58)
[2017-09-03] MEDS ORDERED: cefTRIAXone 1 GM in NS 55 ML IVPB ONE (19:00)
[2017-09-03 20:45] VITALS: BP 160/74
[2017-09-03 20:46] VITALS: BP 165/71
--- NOTE | 2017-09-05 07:26 | Emergency Room Report ---
History of Present Illness General Chief Complaint: Abdominal Pain Source: Patient Present Illness HPI Patient is an 82-year-old female who presented after increased abdominal pain and diarrhea. Patient had gradual onset of symptoms of the past 2 days. She reports having increased crampy abdominal pain and abdominal fullness. She denies any vomiting. She denied any black or bloody stools. She prior history of anemia. Patient was noted to be diabetic. She denied any focality of pain.Pain was unchanged by eating. Allergies: Coded Allergies: No Known Allergies (Verified , 03/25/17) Patient History Past Medical History: see triage record Last Menstrual Period: na Reviewed Nursing Documentation: PMH: Agreed; PSxH: Agreed Nursing Documentation-PMH Past Medical History: No History, Except For Hx Cardiac Problems: Yes - hyperlipidemia Hx Hypertension: Yes Hx Diabetes: Yes Hx Cancer: No Hx Gastrointestinal Problems: Yes Hx Neurological Problems: Yes Hx Transient Ischemic Attacks: Yes Review of Systems All Other Systems: negative except mentioned in HPI Physical Exam Vital Signs Date Time Temp Pulse Resp B/P (MAP) Pulse Ox O2 Delivery O2 Flow Rate FiO2 09/03/17 16:40 98.6 67 18 165/71 98 Room Air 98.6 Sp02 EP Interpretation: reviewed, normal General Appearance: normal inspection, well appearing, no apparent distress, alert, GCS 15, non-toxic, Chronically Ill Head: atraumatic ENT: normal ENT inspection, hearing grossly normal, normal voice Neck: normal inspection, full range of motion, supple, no bony tend Respiratory: normal inspection, lungs clear, normal breath sounds, no respiratory distress, no retraction, no wheezing Cardiovascular #1: regular rate, rhythm, no edema Gastrointestinal: normal inspection, normal bowel sounds, non tender, soft, no guarding, no hernia Genitourinary: no CVA tenderness Musculoskeletal: normal inspection, back normal, normal range of motion Neurologic: normal inspection, alert, oriented x3, responsive, display card writer III-XII nml as tested, speech normal Psychiatric: normal inspection, judgement/insight normal, mood/affect normal Skin: normal inspection, normal color, no rash Medical Decision Making Diagnostic Impression: Primary Impression: UTI (urinary tract infection) Additional Impressions: Diabetes Weakness ER Course Patient presented for abdominal pain. Differential diagnoses included ischemic bowel, appendicitis, perforated viscus, abdominal aortic aneurysm, inferior myocardial infarction, viral gastroenteritis Because of complexity of patient's case laboratory testing and imaging studies were ordered. Laboratory studies showed adequate hemoglobin. Patient was given IV fluids. The patient was given IV Rocephin She is able to tolerate oral feeding. The urinalysis showed evidence of urinary infection.The patient stated she felt better and wanted to go home. The patient is advised to follow up with primary care doctor in 1-2 days. Patient is advised to return if any worsening condition or if any changes in status that are concerning. This report is dictated with [employer] sugar sampler software which may occasionally lead to discrepancies related to use of this software. Labs Test 09/03/17 17:40 09/03/17 17:45 White Blood Count 8.8 K/UL (4.8-10.8) Red Blood Count 3.36 M/UL (4.20-5.40) Hemoglobin 9.4 G/DL (12.0-16.0) Hematocrit 27.9 % (37.0-47.0) Mean Corpuscular Volume 83 FL (80-99) Mean Corpuscular Hemoglobin 28.0 PG (27.0-31.0) Mean Corpuscular Hemoglobin Concent 33.7 G/DL (32.0-36.0) Red Cell Distribution Width 12.6 % (11.6-14.8) Platelet Count 321 K/UL (150-450) Mean Platelet Volume 8.8 FL (6.5-10.1) Neutrophils (%) (Auto) 69.9 % (45.0-75.0) Lymphocytes (%) (Auto) 20.4 % (20.0-45.0) Monocytes (%) (Auto) 7.4 % (1.0-10.0) Eosinophils (%) (Auto) 1.4 % (0.0-3.0) Basophils (%) (Auto) 0.8 % (0.0-2.0) Sodium Level 139 MMOL/L (136-145) Potassium Level 3.9 MMOL/L (3.5-5.1) Chloride Level 104 MMOL/L (98-107) Carbon Dioxide Level 25 MMOL/L (21-32) Anion Gap 10 mmol/L (5-15) Blood Urea Nitrogen 31 mg/dL (7-18) Creatinine 1.1 MG/DL (0.55-1.30) Estimat Glomerular Filtration Rate mL/min (>60) Glucose Level 93 MG/DL (74-106) Calcium Level 8.5 MG/DL (8.5-10.1) Total Bilirubin 0.2 MG/DL (0.2-1.0) Aspartate Amino Transf (AST/SGOT) 17 U/L (15-37) Alanine Aminotransferase (ALT/SGPT) 18 U/L (12-78) Alkaline Phosphatase 52 U/L (46-116) Troponin I 0.008 ng/mL (0.000-0.056) Total Protein 6.1 G/DL (6.4-8.2) Albumin 2.7 G/DL (3.4-5.0) Globulin 3.4 g/dL Albumin/Globulin Ratio 0.8 (1.0-2.7) Lipase 96 U/L (73-393) Urine Color Pale yellow Urine Appearance Slightly cloudy Urine pH 6.5 (4.5-8.0) Urine Specific [place] 1.010 (1.005-1.035) Urine Protein 3+ (NEGATIVE) Urine Glucose (UA) Negative (NEGATIVE) Urine Ketones Negative (NEGATIVE) Urine Occult Blood 1+ (NEGATIVE) Urine Nitrite Positive (NEGATIVE) Urine Bilirubin Negative (NEGATIVE) Urine Urobilinogen Normal MG/DL (0.0-1.0) Urine Leukocyte Esterase 2+ (NEGATIVE) Urine RBC 2-4 /HPF (0 - 2) Urine WBC 30-40 /HPF (0 - 2) Urine Squamous Epithelial Cells Occasional /LPF Urine Bacteria Many /HPF (NONE) Last Vital Signs Date Time Temp Pulse Resp B/P (MAP) Pulse Ox O2 Delivery O2 Flow Rate FiO2 09/03/17 20:46 98.6 78 18 165/71 98 Room Air 98.6 Status: improved Disposition: HOME, SELF-CARE Condition: Stable Scripts Loperamide Hcl (LOPERAMIDE) 2 Mg Capsule 2 MG PO NEEDED for diarrhea, #10 CAP Prov: Jai Richards 09/03/17 Cephalexin* (KEFLEX*) 500 Mg Capsule 500 MG ORAL Q6H, #28 CAP 0 Refills Prov: Jai Richards 09/03/17 Referrals: NON PHYSICIAN (PCP) Patient Instructions: Urinary Tract Infection, Abdominal Pain, Adult Jai Richards Sep 05, 2017 07:26
== END 2017-09-03 20:46 | disposition home or self-care (01) ==
LOC: EMR 17:30
DX: N39.0 Urinary tract infection, site not specified (principal); E11.9 Type 2 diabetes mellitus without complications; R53.1 Weakness; I10 Essential (primary) hypertension; E78.5 Hyperlipidemia, unspecified; Z86.73 Personal history of transient ischemic attack (TIA), and cerebral infarction without residual deficits
CPT/HCPCS: 36415; 80053; 81003; 83690; 84484; 85025; 87086; 87181; 96374; 96375; 99284; J0696; J2405; J7040

== ENCOUNTER 2017-10-27 09:31 | Emergency (ER) | payer MEDICARE, OTHER ==
[~2017-10-27] VITALS: Ht 152.4 cm; Wt 59.0 kg
[~2017-10-27 09:31] MED LIST changes: +LOPERAMIDE2 MG PO
[2017-10-27] MEDS ORDERED: Sodium Chloride 500ML 500 ML IV ONE (09:47)
[2017-10-27 10:26] LABS: BASOPHILS % (AUTO) 1.1 % (0.0-2.0); EOSINOPHILS % (AUTO) 2.4 % (0.0-3.0); HEMATOCRIT 28.2 % (37.0-47.0); HEMOGLOBIN 9.3 G/DL (12.0-16.0); LYMPHOCYTES % (AUTO) 21.2 % (20.0-45.0); MEAN CORPUSCULAR VOLUME 84 FL (80-99); NEUTROPHILS % (AUTO) 68.3 % (45.0-75.0); PLATELET COUNT 309 K/UL (150-450); RED BLOOD COUNT 3.36 M/UL (4.20-5.40); RED CELL DISTRIBUTION WIDTH 12.9 % (11.6-14.8); WHITE BLOOD COUNT 6.4 K/UL (4.8-10.8)
[2017-10-27 10:27] LABS: APPEARANCE,URINE CLEAR; BILIRUBIN, URINE NEGATIVE (NEGATIVE); COLOR,URINE PALE YELLOW; GLUCOSE, URINE (UA) NEGATIVE (NEGATIVE); KETONES,URINE NEGATIVE (NEGATIVE); LEUKOCYTE ESTERASE ,URINE 3+ (NEGATIVE); NITRITE,URINE NEGATIVE (NEGATIVE); PH,URINE 7 (4.5-8.0); PROTEIN,URINE 3+ (NEGATIVE); UROBILINOGEN,URINE NORMAL MG/DL (0.0-1.0)
[2017-10-27 10:39] LABS: ANION GAP 6 mmol/L (5-15); BLOOD UREA NITROGEN 28 mg/dL (7-18); CALCIUM 8.8 MG/DL (8.5-10.1); CARBON DIOXIDE 27 MMOL/L (21-32); CHLORIDE 107 MMOL/L (98-107); CREATININE 1.3 MG/DL (0.55-1.30); POTASSIUM 4.2 MMOL/L (3.5-5.1); SODIUM 140 MMOL/L (136-145)
[2017-10-27 10:51] LABS: ALANINE AMINOTRANSFERASE 21 U/L (12-78); ALBUMIN 2.7 G/DL (3.4-5.0); ALBUMIN/GLOBULIN RATIO 0.7 (1.0-2.7); ALKALINE PHOSPHATASE 45 U/L (46-116); ASPARTATE AMINO TRANSFERASE 17 U/L (15-37); BILIRUBIN,TOTAL 0.3 MG/DL (0.2-1.0); CKMB 1.7 NG/ML (0.0-3.6); CREATINE KINASE 136 U/L (26-308)
[2017-10-27 11:34] VITALS: BP 156/55
[2017-10-27 11:55] VITALS: BP 156/79
--- NOTE | 2017-10-27 12:21 | Emergency Room Report ---
History of Present Illness General Chief Complaint: Chest Pain Source: Patient Present Illness HPI Patient presents with complaints of right-sided chest discomfort Also right upper abdominal pain Symptoms ongoing for the past 2 days patient denies any nausea or vomiting She does feel generally weak however Pain is 4 out of 10 heaviness At times sharp denies any change with position Denies any dysuria frequency denies any fevers or chills Denies any fall or trauma Allergies: Coded Allergies: No Known Allergies (Verified , 03/25/17) Patient History Past Medical History: see triage record Pertinent Family History: none Reviewed Nursing Documentation: PMH: Agreed; PSxH: Agreed Nursing Documentation-PMH Hx Cardiac Problems: Yes - hyperlipidemia Hx Hypertension: Yes Hx Diabetes: Yes Hx Cancer: No Hx Gastrointestinal Problems: Yes Hx Neurological Problems: Yes Hx Transient Ischemic Attacks: Yes Review of Systems All Other Systems: negative except mentioned in HPI Physical Exam Vital Signs Date Time Temp Pulse Resp B/P (MAP) Pulse Ox O2 Delivery O2 Flow Rate FiO2 10/27/17 09:35 97.8 67 20 128/56 96 Room Air 97.9 Sp02 EP Interpretation: reviewed, normal General Appearance: no apparent distress - However mildly weak Head: normocephalic, atraumatic Eyes: bilateral eye PERRL, bilateral eye EOMI ENT: hearing grossly normal, normal pharynx, TMs + canals normal, uvula midline Neck: full range of motion, supple, no meningismus, no bony tend Respiratory: lungs clear, normal breath sounds, no rhonchi, no respiratory distress, no retraction, no accessory muscle use Cardiovascular #1: normal peripheral pulses, regular rate, rhythm, no edema, no gallop, no JVD, no murmur Gastrointestinal: normal bowel sounds, non tender - However subjectively points to the right upper quadrant region, soft, no mass, no organomegaly, non- distended, no guarding, no hernia, no pulsatile mass, no rebound Genitourinary: no CVA tenderness Musculoskeletal: other - Patient able to ambulate with assistance however generally weak Neurologic: oriented x3, responsive, plaster foreman III-XII nml as tested, motor strength/ tone normal, sensory intact Psychiatric: mood/affect normal Skin: normal color, no rash, warm/dry, palpation normal Lymphatic: normal inspection, no adenopathy Medical Decision Making Diagnostic Impression: Primary Impression: ACS (acute coronary syndrome) Additional Impression: Abdominal pain ER Course Patient is a fairly complex patient with multiple differential to consideration including but not limited to cardiac cardiopulmonary and vascular emergencies Patient's EKG shows right bundle-branch block in line with her previous finding Baseline blood work are appropriate CT imaging did not show any acute disease Patient's urine sample shows 3+ leukocytes however appears to be contaminated Patient does not have any other symptoms and this was not treated Patient requiring admission for further care given the comorbidities and risk factors of her complaint At this time however the patient is refusing admission is aware of the consequences of leaving including worsening symptoms and possible And leaving AGAINST MEDICAL ADVICE Labs Test 10/27/17 09:55 10/27/17 10:15 White Blood Count 6.4 K/UL (4.8-10.8) Red Blood Count 3.36 M/UL (4.20-5.40) Hemoglobin 9.3 G/DL (12.0-16.0) Hematocrit 28.2 % (37.0-47.0) Mean Corpuscular Volume 84 FL (80-99) Mean Corpuscular Hemoglobin 27.7 PG (27.0-31.0) Mean Corpuscular Hemoglobin Concent 33.1 G/DL (32.0-36.0) Red Cell Distribution Width 12.9 % (11.6-14.8) Platelet Count 309 K/UL (150-450) Mean Platelet Volume 9.2 FL (6.5-10.1) Neutrophils (%) (Auto) 68.3 % (45.0-75.0) Lymphocytes (%) (Auto) 21.2 % (20.0-45.0) Monocytes (%) (Auto) 7.0 % (1.0-10.0) Eosinophils (%) (Auto) 2.4 % (0.0-3.0) Basophils (%) (Auto) 1.1 % (0.0-2.0) Sodium Level 140 MMOL/L (136-145) Potassium Level 4.2 MMOL/L (3.5-5.1) Chloride Level 107 MMOL/L (98-107) Carbon Dioxide Level 27 MMOL/L (21-32) Anion Gap 6 mmol/L (5-15) Blood Urea Nitrogen 28 mg/dL (7-18) Creatinine 1.3 MG/DL (0.55-1.30) Estimat Glomerular Filtration Rate mL/min (>60) Glucose Level 134 MG/DL (74-106) Calcium Level 8.8 MG/DL (8.5-10.1) Total Bilirubin 0.3 MG/DL (0.2-1.0) Aspartate Amino Transf (AST/SGOT) 17 U/L (15-37) Alanine Aminotransferase (ALT/SGPT) 21 U/L (12-78) Alkaline Phosphatase 45 U/L (46-116) Total Creatine Kinase 136 U/L (26-308) Creatine Kinase MB 1.7 NG/ML (0.0-3.6) Creatine Kinase MB Relative Index 1.2 Troponin I 0.017 ng/mL (0.000-0.056) Total Protein 6.8 G/DL (6.4-8.2) Albumin 2.7 G/DL (3.4-5.0) Globulin 4.1 g/dL Albumin/Globulin Ratio 0.7 (1.0-2.7) Lipase 132 U/L (73-393) Urine Color Pale yellow Urine Appearance Clear Urine pH 7 (4.5-8.0) Urine Specific [place] 1.005 (1.005-1.035) Urine Protein 3+ (NEGATIVE) Urine Glucose (UA) Negative (NEGATIVE) Urine Ketones Negative (NEGATIVE) Urine Occult Blood 1+ (NEGATIVE) Urine Nitrite Negative (NEGATIVE) Urine Bilirubin Negative (NEGATIVE) Urine Urobilinogen Normal MG/DL (0.0-1.0) Urine Leukocyte Esterase 3+ (NEGATIVE) Urine RBC 2-4 /HPF (0 - 2) Urine WBC 10-15 /HPF (0 - 2) Urine Squamous Epithelial Cells Few /LPF (NONE/OCC) Urine Bacteria Few /HPF (NONE) EKG Diagnostic Results Rate: normal Rhythm: NSR ST Segments: no acute changes Rhythm Strip Diag. Results EP Interpretation: yes Rate: 66 Rhythm: NSR, no PVC's, no ectopy Chest X-Ray Diagnostic Results Chest X-Ray Diagnostic Results : Chest X-Ray Ordered: Yes # of Views/Limited/Complete: 1 View Indication: Chest Pain EP Interpretation: Yes Interpretation: no consolidation, no effusion, no pneumothorax, other - Borderline cardiomegaly Impression: No acute disease Electronically Signed by: Sandy Gordon, DO CT/MRI/US Diagnostic Results CT/MRI/US Diagnostic Results : Impression CT abdomen pelvis: no acute disease Last Vital Signs Date Time Temp Pulse Resp B/P (MAP) Pulse Ox O2 Delivery O2 Flow Rate FiO2 10/27/17 11:34 97.9 66 20 156/55 96 Room Air 97.9 Status: improved Disposition: AGAINST MEDICAL ADVICE Condition: Serious Referrals: NON PHYSICIAN (PCP) Sandy Gordon DO October 27, 2017 12:21
--- NOTE | 2017-10-27 15:36 | Diagnostic Imaging Report ---
EXAM: CT Abdomen and Pelvis Without Intravenous Contrast CLINICAL HISTORY: PAIN TECHNIQUE: Axial computed tomography images of the abdomen and pelvis without intravenous contrast. CTDI is 15.03 mGy and DLP is 672.6 mGy-cm. One or more of the following dose reduction techniques were used: automated exposure control, adjustment of the mA and/or kV according to patient size, use of iterative reconstruction technique. COMPARISON: CT abdomen and pelvis 03/26/17 FINDINGS: Lung bases: Unremarkable. No mass. No consolidation. ABDOMEN: Liver: Scattered punctate calcified granulomas throughout the liver. Gallbladder and bile ducts: Unremarkable. No calcified stones. No ductal dilation. Pancreas: Unremarkable. No ductal dilation. Spleen: Unremarkable. No splenomegaly. Adrenals: Unremarkable. No mass. Kidneys and ureters: Unremarkable. No obstructing stones. No hydronephrosis. Stomach and bowel: Mild colonic fecal retention may suggest mild constipation. No obstruction. No mucosal thickening. PELVIS: Appendix: Normal appendix. Bladder: Unremarkable. No stones. Reproductive: Uterus and ovaries have an unremarkable noncontrast appearance. ABDOMEN and PELVIS: Intraperitoneal space: Unremarkable. No free air. No significant fluid collection. Bones/joints: Anterior compression deformities of L2, most likely chronic, with approximately 50% anterior height loss. Multilevel degenerative changes throughout the lumbar spine, most prominent at L5-S1, with disc space loss, and vacuum disc phenomenon. No dislocation. Soft tissues: Small fat-containing umbilical hernia. Vasculature: Unremarkable. No abdominal aortic aneurysm. Lymph nodes: Unremarkable. No enlarged lymph nodes. IMPRESSION: 1. Mild colonic fecal retention may suggest mild constipation. 2. Anterior compression deformities of L2, most likely chronic, with approximately 50% anterior height loss. 3. Small fat-containing umbilical hernia.
--- NOTE | 2017-10-27 15:45 | Diagnostic Imaging Report ---
EXAM: XR Chest, 1 View CLINICAL HISTORY: CP TECHNIQUE: Frontal view of the chest. COMPARISON: Chest x-ray dated 07/19/17 FINDINGS: Lungs: There are mildly increased interstitial markings. The lungs are otherwise clear without focal consolidation. Pleural space: Unremarkable. No pneumothorax. Heart: Unremarkable. No cardiomegaly. Mediastinum: Unremarkable. Bones/joints: Radiodensity overlying the left humeral head is most likely external to the patient. The visualized skeletal structures appear intact. Tubes, lines and devices: EKG leads overlie the thorax. IMPRESSION: There are mildly increased interstitial markings. This is nonspecific and may be related to mild pulmonary vascular congestion or a mild interstitial pneumonitis.
--- NOTE | 2017-10-28 13:51 | Cardiology Report ---
APPROVED REPORT EKG Measurement Heart [id number] Normal sinus rhythm Right bundle branch block Abnormal ECG
[2017-11-05] MEDS ORDERED: CEPHALEXIN500 MG ORAL ×2 (19:46→19:47)
== END 2017-10-27 11:55 | disposition left against medical advice (07) ==
LOC: EMR 10:19 → CANBEDREQ 12:17
DX: I24.9 Acute ischemic heart disease, unspecified (principal); R10.9 Unspecified abdominal pain; E11.9 Type 2 diabetes mellitus without complications; I10 Essential (primary) hypertension; Z86.73 Personal history of transient ischemic attack (TIA), and cerebral infarction without residual deficits
CPT/HCPCS: 36415; 71045; 74176; 80053; 81003; 82550; 82553; 83690; 84484; 85025; 87086; 87181; 93005; 96374; 99284

== ENCOUNTER 2018-05-08 18:37 | Emergency (ER) | payer MEDICARE, OTHER ==
[~2018-05-08] VITALS: Ht 152.4 cm; Wt 68.0 kg
[~2018-05-08 18:37] MED LIST changes: +CEPHALEXIN500 MG ORAL
[2018-05-08 19:05] VITALS: BP 178/70
--- NOTE | 2018-05-08 20:08 | Emergency Room Report ---
History of Present Illness General Chief Complaint: Skin Rash/Abscess Source: Patient, Family Member - Son Present Illness HPI 81-year-old female with history of hypertension, diabetes, presents with bilateral distal tibial medial aspect blisters, that she popped the other day, and now there is slight redness around them, left greater than right, but she reports pain and she does not really have any pain just reports the skin hasn't grown back. There is been no foul odor, and no purulent discharge according to patient and her son. Her son just requests that we ask her not to pop the blisters in the future because she doesn't generally listen when he tells her not to do that. Allergies: Coded Allergies: No Known Allergies (Verified , 03/25/17) Patient History Past Medical History: see triage record Last Menstrual Period: 4 decades ago Now: No Reviewed Nursing Documentation: PMH: Agreed; PSxH: Agreed Nursing Documentation-PMH Hx Cardiac Problems: Yes - hyperlipidemia Hx Hypertension: Yes Hx Diabetes: Yes Hx Cancer: No Hx Gastrointestinal Problems: Yes Hx Neurological Problems: Yes Hx Transient Ischemic Attacks: Yes Review of Systems All Other Systems: negative except mentioned in HPI Physical Exam Vital Signs Date Time Temp Pulse Resp B/P (MAP) Pulse Ox O2 Delivery O2 Flow Rate FiO2 05/08/18 19:05 97.9 66 16 178/70 98 Room Air Sp02 EP Interpretation: reviewed, normal General Appearance: no apparent distress, alert, non-toxic Head: normocephalic Eyes: bilateral eye normal inspection, bilateral eye PERRL, bilateral eye EOMI ENT: normal ENT inspection, hearing grossly normal, normal pharynx, no angioedema, normal voice, moist mucus membranes Neck: normal inspection, full range of motion, supple, supple/symm/no masses Respiratory: chest non-tender, lungs clear, normal breath sounds, chest symmetrical, palpation of chest normal Cardiovascular #1: normal peripheral pulses, regular rate, rhythm, edema - 1+ B /L LE edema to mid tibia Cardiovascular #2: 2+ radial (R), 2+ radial (L) Gastrointestinal: normal inspection, non tender, soft, no mass, no guarding, no rebound Rectal: deferred Genitourinary: normal inspection, no CVA tenderness Musculoskeletal: back normal, gait/station normal, normal range of motion, non- tender, no calf tenderness Neurologic: alert, responsive, medical assistant dermatology III-XII nml as tested, motor strength/tone normal, sensory intact, speech normal Psychiatric: judgement/insight normal, memory normal, mood/affect normal, no suicidal/homicidal ideation Skin: normal color, no rash, warm/dry, normal turgor, other - skin tear on distal tibias b/l, but larger on L with ~1cm surrounding erythema on b/l skin tears at site of bursted blisters Lymphatic: no adenopathy Medical Decision Making Diagnostic Impression: Primary Impression: Cellulitis Additional Impression: Edema ER Course Patient with edema and blister formation that she popped on her own, with minimal surrounding cellulitis but she is a diabetic, I will also give her prescription for Lasix and potassium for 2 days, to help with the swelling, as well as Keflex and recommend she follow up with her PMD within 1 week, she reports she just saw him 3 weeks ago, but the blister only popped a few days ago so she came here again. She has no history of CHF, renal failure, and has not been having signs or symptoms of CHF exacerbation such as cough, shortness of breath, chest pain, palpitations, orthopnea, and her lung examination is also unremarkable, as his heart examination with no S3 gallop. WBC normal, slightly elevated creatitine, normal electrolytes, will dc with keflex, lasix and KCl, with PMD f/u in 1 week. Last Vital Signs Date Time Temp Pulse Resp B/P (MAP) Pulse Ox O2 Delivery O2 Flow Rate FiO2 05/08/18 19:05 97.9 66 16 178/70 98 Room Air Disposition: HOME, SELF-CARE Condition: Stable ANNMARIE OWEN M.D May 08, 2018 20:08
[2018-05-08 20:49] LABS: BASOPHILS % (AUTO) 1.1 % (0.0-2.0); EOSINOPHILS % (AUTO) 2.1 % (0.0-3.0); HEMATOCRIT 29.2 % (37.0-47.0); HEMOGLOBIN 9.6 G/DL (12.0-16.0); MEAN CORPUSCULAR VOLUME 83 FL (80-99); MONOCYTES % (AUTO) 7.4 % (1.0-10.0); NEUTROPHILS % (AUTO) 70.4 % (45.0-75.0); PLATELET COUNT 315 K/UL (150-450); RED BLOOD COUNT 3.53 M/UL (4.20-5.40); RED CELL DISTRIBUTION WIDTH 11.6 % (11.6-14.8); WHITE BLOOD COUNT 8.5 K/UL (4.8-10.8)
[2018-05-08 20:50] LABS: ANION GAP 10 mmol/L (5-15); BLOOD UREA NITROGEN 32 mg/dL (7-18); CALCIUM 8.6 MG/DL (8.5-10.1); CARBON DIOXIDE 24 MMOL/L (21-32); CHLORIDE 102 MMOL/L (98-107); CREATININE 1.8 MG/DL (0.55-1.30); SODIUM 136 MMOL/L (136-145)
[2018-05-08 20:55] LABS: ALANINE AMINOTRANSFERASE 16 U/L (12-78); ALBUMIN 2.6 G/DL (3.4-5.0); ALBUMIN/GLOBULIN RATIO 0.5 (1.0-2.7); ALKALINE PHOSPHATASE 56 U/L (46-116); ASPARTATE AMINO TRANSFERASE 17 U/L (15-37); BILIRUBIN,TOTAL 0.3 MG/DL (0.2-1.0)
[2018-05-08] MEDS ORDERED: CEPHALEXIN500 MG ORAL (21:21)
[2018-05-08] MEDS ORDERED: FUROSEMIDE40 MG ORAL (21:24)
[2018-05-08] MEDS ORDERED: POTASSIUM CHLO20 ME2 ORAL (21:24)
[2018-05-08 21:40] VITALS: BP 154/70
== END 2018-05-08 21:40 | disposition home or self-care (01) ==
LOC: EMR 20:00
DX: L03.116 Cellulitis of left lower limb (principal); L03.115 Cellulitis of right lower limb; I10 Essential (primary) hypertension; E11.9 Type 2 diabetes mellitus without complications; E78.5 Hyperlipidemia, unspecified; Z86.69 Personal history of other diseases of the nervous system and sense organs; Z87.19 Personal history of other diseases of the digestive system; Z86.73 Personal history of transient ischemic attack (TIA), and cerebral infarction without residual deficits
CPT/HCPCS: 36415; 80053; 85025; 99283

== ENCOUNTER 2018-10-02 14:59 | Emergency (ER) | payer MEDICARE, OTHER ==
[~2018-10-02] VITALS: Ht 157.5 cm; Wt 61.2 kg
[~2018-10-02 14:59] MED LIST changes: +FUROSEMIDE40 MG ORAL; +POTASSIUM CHLO20 ME2 ORAL
[2018-10-02] MEDS ORDERED: MAGNESIUM OXID400 M1 ORAL (15:22)
[2018-10-02] MEDS ORDERED: CARVEDILOL25 MG ORAL (15:22)
[2018-10-02] MEDS ORDERED: HUMALOG100 UNIT/4 SUBQ (15:22)
[2018-10-02] MEDS ORDERED: ISOSORBIDE MON120 M1 PO (15:22)
[2018-10-02] MEDS ORDERED: FERROUS SULFAT325 MG ORAL (15:22)
[2018-10-02] MEDS ORDERED: FENOFIBRATE145 M1 ORAL (15:22)
[2018-10-02] MEDS ORDERED: CHLORTHALIDONE25 MG ORAL (15:22)
[2018-10-02] MEDS ORDERED: ELIQUIS2.5 MG PO (15:22)
[2018-10-02] MEDS ORDERED: OFLOXACIN5 ML OT (15:22)
[2018-10-02 15:35] VITALS: BP 138/45
--- NOTE | 2018-10-02 16:22 | Diagnostic Imaging Report ---
Indications: Pain, status post fall Technique: Spiral acquisitions obtained through the brain. Angled axial and coronal 5 x 5 mm slices were reconstructed. Total dose length product 1351.45 mGycm. CTDI vol(s) 70.38 mGy. Dose reduction achieved using automated exposure control Comparison: 07/19/2017 Findings: Demonstrated is a suprasellar mass which is slightly hyperattenuating, measures 2.5 cm transverse by 2.1 cm AP by 1.8 cm craniocaudad, appearing similar to the previous study this results in minimal local mass effect, displacing the hypothalamus cephalad. No acute intracranial hemorrhage. No other mass effect. No midline shift. There is age-related enlargement of the ventricles and extra axial CSF spaces. There is minimal periventricular deep white matter low-attenuation, consistent with chronic microvascular ischemic change. The calvarium is intact. There is evidence of prior bilateral cataract surgery. The sinuses are clear. There is chronic appearing mastoid disease on the right which is slightly progressive since prior exam. 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 The CT scanner at [facility] is accredited by the [employer] and the scans are performed using protocols designed to limit radiation exposure to as low as reasonably achievable to attain images of sufficient resolution adequate for diagnostic evaluation.
[2018-10-02] MEDS ORDERED: TYLENOL EXTRA500 MG ORAL (16:37)
[2018-10-02 16:39] VITALS: BP 132/54
[2018-10-02 16:40] VITALS: BP 132/54
--- NOTE | 2018-10-02 17:30 | Diagnostic Imaging Report ---
Indication: Right hip pain Technique: 2 views of the right hip, one view of the pelvis Comparison: none Findings: There is a minimally displaced fracture of the right superior pubic ramus. This peripheral. There is a nondisplaced fracture of the mid inferior pubic ramus. No femoral fracture demonstrated. The joint spaces are preserved. Impression: Positive for right superior and inferior pubic rami fractures No evidence of femoral fracture Findings discussed by phone with Dr. Rincon in the emergency room at the time of interpretation
--- NOTE | 2018-10-02 17:33 | Diagnostic Imaging Report ---
Indications: Pain, status post fall Technique: Two views of the femur Comparison: None Findings: There are fractures of the right superior and inferior pubic rami. No femoral fracture demonstrated. Bones are osteoporotic. There are vascular calcifications. There are possible degenerative changes of the knee joint. Impression: Negative for femur fracture Positive for right superior and inferior pubic rami fractures
--- NOTE | 2018-10-02 17:40 | Emergency Room Report ---
History of Present Illness General Chief Complaint: Multiple Trauma/Fall Source: Patient Present Illness HPI 83-year-old female presents ED for evaluation. Patient brought in by family complaining of right hip pain and headache status post trip and fall yesterday. Complaining of right hip and leg pain. Dull, 7 out of 10, nonradiating. Is able to walk. Denies any photophobia or blurry vision. Denies any nausea or vomiting. No other injuries. No other aggravating relieving factors. Denies any other associated symptoms Allergies: Coded Allergies: No Known Allergies (Verified , 03/25/17) Patient History Past Medical History: DM, HTN Past Surgical History: none Pertinent Family History: none Social History: Denies: smoking, alcohol use, drug use Now: No Immunizations: UTD Reviewed Nursing Documentation: PMH: Agreed; PSxH: Agreed Nursing Documentation-PMH Past Medical History: No History, Except For Hx Cardiac Problems: Yes - hyperlipidemia Hx Hypertension: Yes Hx Diabetes: Yes Hx Cancer: No Hx Gastrointestinal Problems: Yes Hx Neurological Problems: Yes Hx Transient Ischemic Attacks: Yes Review of Systems All Other Systems: negative except mentioned in HPI Physical Exam Vital Signs Date Time Temp Pulse Resp B/P (MAP) Pulse Ox O2 Delivery O2 Flow Rate FiO2 10/02/18 15:03 98.2 61 19 139/59 97 Room Air Sp02 EP Interpretation: reviewed, normal General Appearance: no apparent distress, alert, GCS 15, non-toxic Head: normocephalic, atraumatic Eyes: bilateral eye normal inspection, bilateral eye PERRL ENT: hearing grossly normal, normal pharynx, no angioedema, normal voice Neck: full range of motion, supple/symm/no masses Respiratory: chest non-tender, lungs clear, normal breath sounds, speaking full sentences Cardiovascular #1: regular rate, rhythm, no edema Cardiovascular #2: 2+ carotid (R), 2+ carotid (L), 2+ radial (R), 2+ radial (L) , 2+ dorsalis pedis (R), 2+ dorsalis pedis (L) Gastrointestinal: normal bowel sounds, non tender, soft, non-distended, no guarding, no rebound Rectal: deferred Genitourinary: normal inspection, no CVA tenderness Musculoskeletal: back normal, gait/station normal, normal range of motion, tender - R hip Neurologic: alert, oriented x3, responsive, motor strength/tone normal, sensory intact, speech normal Psychiatric: judgement/insight normal, memory normal, mood/affect normal, no suicidal/homicidal ideation Reflexes: 3+ bicep (R), 3+ bicep (L), 3+ tricep (R), 3+ tricep (L), 3+ knee (R) , 3+ knee (L) Skin: normal color, no rash, warm/dry, well hydrated Lymphatic: no adenopathy Medical Decision Making Diagnostic Impression: Primary Impression: Suprasellar mass Additional Impression: Pubic ramus fracture Qualified Codes: S32.591A - Other specified fracture of right pubis, initial encounter for closed fracture ER Course Hospital Course 83 yo F presents to ED s/p head pain and R hip pain s/p fall Differential diagnoses include: Fracture, dislocation, sprain, contusion Clinical course Patient placed on stretcher. After initial history and physical, I ordered CT Head, R hip and femur xray CT head shows a suprasellar mass unchanged from prior CT. Likely a meningioma. X-ray of hip and femur shows inferior and superior pubic rami fracture. Discussed with orthopedics Dr. Porras; fracture is nonoperative. Mainly pain control. She is walking in ED. Discussed findings with patient and family. explained concern for cancer in the vbrain. We'll discharged to home. We'll provide orthopedic referral. given copies of CT Diagnosis - suprasellar mass, pubic rami fx Stable and discharged to home with prescription for Tylenol #3. weight bear as tolerated. Followup with PMD/ortho. Return to ED if symptoms recur or worsen Other X-Ray Diagnostic Results Other X-Ray Diagnostic Results #1: X-Ray ordered: R femur # of Views/Limited Vs Complete: 3 View Indication: Pain EP Interpretation: Yes Interpretation: no dislocation, no soft tissue swelling, no fractures Impression: No acute disease Electronically Signed by: Electronically signed by Nate Rincon MD Other X-Ray Diagnostic Results #2: X-Ray ordered: R hip # of Views/Limited Vs Complete: 3 View Indication: Pain EP Interpretation: Yes Interpretation: no dislocation, no soft tissue swelling, other - R superior and inferior pubic rami fx Impression: Other - pubic rami fx Electronically Signed by: Electronically signed by Nate Rincon MD CT/MRI/US Diagnostic Results CT/MRI/US Diagnostic Results : Imaging Test Ordered: CT head Impression no acute process. suprasellar mass unchanged from prior CT Last Vital Signs Date Time Temp Pulse Resp B/P (MAP) Pulse Ox O2 Delivery O2 Flow Rate FiO2 10/02/18 16:40 98.2 67 20 132/54 100 Room Air Status: improved Disposition: HOME, SELF-CARE Condition: Stable Scripts Acetaminophen* (TYLENOL EXTRA STRENGTH*) 500 Mg Tablet 500 MG ORAL Q8H PRN for Prn Headache/Temp > 101, #30 TAB 0 Refills Prov: Nate Rincon MD 10/02/18 Referrals: NON PHYSICIAN (PCP) [facility] Patient Instructions: Meningioma Nate Rincon MD Oct 02, 2018 17:40
== END 2018-10-02 16:40 | disposition home or self-care (01) ==
LOC: EMR 15:25
DX: S32.591A Other specified fracture of right pubis, initial encounter for closed fracture (principal); W01.0XXA Fall on same level from slipping, tripping and stumbling without subsequent striking against object, initial encounter; Y92.9 Unspecified place or not applicable; R22.0 Localized swelling, mass and lump, head; I10 Essential (primary) hypertension; E11.9 Type 2 diabetes mellitus without complications; Z86.73 Personal history of transient ischemic attack (TIA), and cerebral infarction without residual deficits
CPT/HCPCS: 70450; 99284

== ENCOUNTER 2018-12-27 20:32 | Emergency (ER) | payer MEDICARE, OTHER ==
[~2018-12-27] VITALS: Ht 162.6 cm; Wt 63.0 kg
[~2018-12-27 20:32] MED LIST changes: +CARVEDILOL25 MG ORAL; +CHLORTHALIDONE25 MG ORAL; +ELIQUIS2.5 MG PO; +FENOFIBRATE145 M1 ORAL; +FERROUS SULFAT325 MG ORAL; +HUMALOG100 UNIT/4 SUBQ; +ISOSORBIDE MON120 M1 PO; +MAGNESIUM OXID400 M1 ORAL; +OFLOXACIN5 ML OT; +TYLENOL EXTRA500 MG ORAL
--- NOTE | 2018-12-27 20:50 | NUR ---
ED Nurse Note: pt brought in by daughter c/o chronic arik ankle swelling and pain started about 2 wks ago and progressively worsening, pt states it feels like pin and needle sensation. noted pitting edema and reddened area on arik ankle +1, will cont monitor. vss.
--- NOTE | 2018-12-27 21:09 | Emergency Room Report ---
History of Present Illness General Chief Complaint: Edema Source: Patient Present Illness HPI Patient is an 83-year-old female who presented after increased bilateral lower extremity swelling. Patient a prior history of similar symptoms in the past. She reports having increased discomfort to her ankles. She had previously been noted to have prior history of anticoagulant use as well as prior diuretic use.Patient had a prior history of diabetes and reports having some burning sensation in both legs. She states this is long-standing.Patient denies any shortness of breath. She denies any chest discomfort at this time. Allergies: Coded Allergies: No Known Allergies (Verified , 03/25/17) Patient History Past Medical History: see triage record Last Menstrual Period: na Now: No : 10 Para: 10 Reviewed Nursing Documentation: PMH: Agreed; PSxH: Agreed Nursing Documentation-PMH Hx Cardiac Problems: Yes - hyperlipidemia Hx Hypertension: Yes Hx Diabetes: Yes Hx Cancer: No Hx Gastrointestinal Problems: Yes Hx Neurological Problems: Yes Hx Transient Ischemic Attacks: Yes Review of Systems All Other Systems: negative except mentioned in HPI Physical Exam Vital Signs Date Time Temp Pulse Resp B/P (MAP) Pulse Ox O2 Delivery O2 Flow Rate FiO2 12/27/18 20:45 97.7 61 16 158/61 (93) 96 Room Air Sp02 EP Interpretation: reviewed, normal General Appearance: normal inspection, no apparent distress, alert, GCS 15, non -toxic, Chronically Ill Head: normocephalic, atraumatic ENT: normal ENT inspection, hearing grossly normal, normal voice Neck: normal inspection, full range of motion, supple, no bony tend Respiratory: normal inspection, lungs clear, normal breath sounds, no respiratory distress, no retraction, no wheezing Cardiovascular #1: regular rate, rhythm, edema Gastrointestinal: normal inspection, normal bowel sounds, non tender, soft, no guarding, no hernia Genitourinary: no CVA tenderness Musculoskeletal: normal inspection, back normal, decreased range of motion Neurologic: normal inspection, alert, oriented x3, responsive, core winder III-XII nml as tested, speech normal Psychiatric: normal inspection, judgement/insight normal, mood/affect normal Medical Decision Making Last Vital Signs Date Time Temp Pulse Resp B/P (MAP) Pulse Ox O2 Delivery O2 Flow Rate FiO2 12/27/18 20:45 97.7 61 16 158/61 (93) 96 Room Air Jai Richards MD Dec 27, 2018 21:09
[2018-12-27 21:15] VITALS: BP 155/68
[2018-12-27] MEDS ORDERED: OXcarbazepine 150mg tab ORAL ONE (21:30)
[2018-12-27 21:41] LABS: APPEARANCE,URINE CLEAR; BILIRUBIN, URINE NEGATIVE (NEGATIVE); COLOR,URINE PALE YELLOW; GLUCOSE, URINE (UA) NEGATIVE (NEGATIVE); KETONES,URINE NEGATIVE (NEGATIVE); LEUKOCYTE ESTERASE ,URINE 1+ (NEGATIVE); NITRITE,URINE NEGATIVE (NEGATIVE); PH,URINE 7 (4.5-8.0); PROTEIN,URINE 3+ (NEGATIVE); UROBILINOGEN,URINE NORMAL MG/DL (0.0-1.0)
[2018-12-27 21:42] LABS: BASOPHILS % (AUTO) 1.5 % (0.0-2.0); EOSINOPHILS % (AUTO) 3.3 % (0.0-3.0); HEMATOCRIT 25.1 % (37.0-47.0); HEMOGLOBIN 8.2 G/DL (12.0-16.0); LYMPHOCYTES % (AUTO) 25.1 % (20.0-45.0); MEAN CORPUSCULAR VOLUME 88 FL (80-99); MONOCYTES % (AUTO) 9.2 % (1.0-10.0); NEUTROPHILS % (AUTO) 60.9 % (45.0-75.0); PLATELET COUNT 239 K/UL (150-450); RED BLOOD COUNT 2.87 M/UL (4.20-5.40); RED CELL DISTRIBUTION WIDTH 12.7 % (11.6-14.8); WHITE BLOOD COUNT 5.7 K/UL (4.8-10.8)
[2018-12-27 21:55] LABS: ANION GAP 7 mmol/L (5-15); BLOOD UREA NITROGEN 44 mg/dL (7-18); CALCIUM 8.5 MG/DL (8.5-10.1); CARBON DIOXIDE 28 MMOL/L (21-32); CHLORIDE 105 MMOL/L (98-107); CREATININE 2.3 MG/DL (0.55-1.30); POTASSIUM 4.2 MMOL/L (3.5-5.1); SODIUM 139 MMOL/L (136-145)
--- NOTE | 2018-12-27 22:00 | NUR ---
ED Nurse Note: pt sleeping at this time, vss, NSR on it systems manager, no sx distress, will cont monitor.
[2018-12-27 22:01] LABS: ALANINE AMINOTRANSFERASE 13 U/L (12-78); ALBUMIN 3.3 G/DL (3.4-5.0); ALKALINE PHOSPHATASE 55 U/L (46-116); ASPARTATE AMINO TRANSFERASE 18 U/L (15-37); BILIRUBIN,TOTAL 0.3 MG/DL (0.2-1.0)
[2018-12-27 22:15] VITALS: BP 145/69
[2018-12-27] MEDS ORDERED: TRILEPTAL150 M3 PO (23:23)
[2018-12-27 23:25] VITALS: BP 154/76
--- NOTE | 2018-12-27 23:45 | NUR ---
ED Nurse Note: pt cleared to be d/c per ERMD, pt discharge and aftercare instruction provided w/ prescription sent , pt education done via discussion and handout, pt advised to follow up with pcp or return to ed if changes in condition, pt vss, ambulatory w/ steady gait, left w/ all belongings. pt accompanied by daughter, iv d/c and id band removed, pt was provided w/ walker prior to d/c.
[2018-12-28 00:16] VITALS: BP 169/61
[2018-12-28 00:17] VITALS: BP 169/61
--- NOTE | 2018-12-29 20:31 | Cardiology Report ---
APPROVED REPORT EKG Measurement Heart [id number] Normal sinus rhythm Right bundle branch block Abnormal ECG
== END 2018-12-27 23:50 | disposition home or self-care (01) ==
LOC: EMR 22:49
DX: R22.43 Localized swelling, mass and lump, lower limb, bilateral (principal); E78.5 Hyperlipidemia, unspecified; I10 Essential (primary) hypertension; E11.9 Type 2 diabetes mellitus without complications; Z86.73 Personal history of transient ischemic attack (TIA), and cerebral infarction without residual deficits
CPT/HCPCS: 36415; 80053; 81003; 84484; 85025; 93005; 96374; 99284; J1940

== ENCOUNTER 2019-01-09 18:53 | Emergency (ER) | payer MEDICARE, OTHER ==
[~2019-01-09] VITALS: Ht 162.6 cm; Wt 67.1 kg
[~2019-01-09 18:53] MED LIST changes: +TRILEPTAL150 M3 PO
[2019-01-09] MEDS ORDERED: UNOBMED (19:01)
[2019-01-09] MEDS ORDERED: Methocarbamol 750mg tab ORAL ONE (19:30)
[2019-01-09] MEDS ORDERED: Acetaminophen 500mg (ES) tab ORAL ONE (19:30)
[2019-01-09 20:15] VITALS: BP 166/66
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
--- NOTE | 2019-01-09 20:16 | Diagnostic Imaging Report ---
EXAM: XR Right Clavicle Complete, 2 or More Views CLINICAL HISTORY: PAIN TECHNIQUE: Frontal and lordotic views of the right clavicle. COMPARISON: No relevant prior studies available. FINDINGS: Bones/joints: Unremarkable. No acute fracture. No dislocation. Soft tissues: Unremarkable. IMPRESSION: Normal right clavicle x-rays.
--- NOTE | 2019-01-09 20:16 | Diagnostic Imaging Report ---
EXAM: XR Right Shoulder Complete, 2 or More Views CLINICAL HISTORY: PAIN TECHNIQUE: Two or more views of the right shoulder. COMPARISON: No relevant prior studies available. FINDINGS: Bones/joints: Degenerative changes of the glenohumeral joint. No acute fracture. No traumatic malalignment. Soft tissues: Unremarkable. IMPRESSION: No acute findings.
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
[2019-01-09] MEDS ORDERED: ROBAXIN-750750 MG PO (20:43)
[2019-01-09] MEDS ORDERED: TYLENOL EXTRA500 MG ORAL (20:43)
[2019-01-09 21:08] VITALS: BP 166/66
--- NOTE | 2019-01-09 21:08 | NUR ---
ER Nurse Note: Pt seen, treated, medically cleared for discharge by ERMD. Discharge instuctions and prescriptions given with repeat verbalization by pt. Emphasized to follow up with primay care provider; take whole course of medication. Explained each medication. All orders completed per ERMD orders. Pt a&ox4, VSS, no signs of distress. ID band removed. Pt expressed concerns and meds about arthritis; all questions answered. All questions answered per pt's questions. Pt left with all belongings, left with own transportation.
== END 2019-01-09 21:08 | disposition home or self-care (01) ==
LOC: EMR 21:00
DX: S40.011A Contusion of right shoulder, initial encounter (principal); S20.211A Contusion of right front wall of thorax, initial encounter; S46.911A Strain of unspecified muscle, fascia and tendon at shoulder and upper arm level, right arm, initial encounter; V43.62XA Car passenger injured in collision with other type car in traffic accident, initial encounter; Y92.410 Unspecified street and highway as the place of occurrence of the external cause; I10 Essential (primary) hypertension; E11.9 Type 2 diabetes mellitus without complications; Z86.73 Personal history of transient ischemic attack (TIA), and cerebral infarction without residual deficits
CPT/HCPCS: 99284

== ENCOUNTER 2019-04-27 22:24 | Inpatient (IN) | payer MEDICARE, OTHER ==
[~2019-04-27] VITALS: Ht 157.5 cm; Wt 68.0 kg
[~2019-04-27 22:24] MED LIST changes: +ROBAXIN-750750 MG PO; +UNOBMED
[2019-04-27 22:45] VITALS: BP 151/58
[2019-04-27] MEDS ORDERED: Nitroglycerin Subl 0.4mg tab SL ONE (22:48)
--- NOTE | 2019-04-27 22:55 | Emergency Room Report ---
History of Present Illness General Chief Complaint: Dyspnea/Respdistress Source: Patient Present Illness HPI This is an 83-year-old female with a history of high blood pressure, diabetes, DVT on Eliquis. She presents with chief complaint of chest pressure. Onset for the last 3 days now. Seem to be more constant now. Kuna short of breath. Worse with exertion. Better with rest. She does have some increasing swelling. No fever chills but no nausea no vomiting. No radiation of the pain. No diaphoresis. 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 Hx Transient Ischemic Attacks: Yes Review of Systems Eye: Denies: eye pain, blurred vision ENT: Denies: ear pain, nose congestion, throat swelling Respiratory: Reports: shortness of breath; Denies: cough Cardiovascular: Reports: chest pain; Denies: palpitations Gastrointestinal: Denies: abdominal pain, diarrhea, nausea, vomiting Musculoskeletal: Denies: back pain, joint pain Skin: Denies: rash Neurological: Denies: headache, numbness Endocrine: Denies: increased thirst, increased urine Hematologic/Lymphatic: Denies: easy bruising All Other Systems: negative except mentioned in HPI Physical Exam Vital Signs Date Time Temp Pulse Resp B/P (MAP) Pulse Ox O2 Delivery O2 Flow Rate FiO2 04/27/19 22:26 98.4 61 20 156/76 (102) 92 Room Air Vitals normal Sp02 EP Interpretation: reviewed, normal General Appearance: well appearing, no apparent distress, alert Head: normocephalic, atraumatic Eyes: bilateral eye PERRL, bilateral eye EOMI ENT: hearing grossly normal, normal pharynx Neck: full range of motion, supple, no meningismus Respiratory: chest non-tender, lungs clear, normal breath sounds Cardiovascular #1: regular rate, rhythm, no murmur Gastrointestinal: normal bowel sounds, non tender, no mass, no organomegaly, no bruit, non-distended Musculoskeletal: back normal, gait/station normal, normal range of motion, swelling - 1+ pitting edema Neurologic: alert, oriented x3 Psychiatric: mood/affect normal Medical Decision Making Diagnostic Impression: Primary Impression: CHF (congestive heart failure) Qualified Codes: I50.9 - Heart failure, unspecified Additional Impression: Anemia Qualified Codes: D64.9 - Anemia, unspecified ER Course Patient presents with dyspnea. She has CHF. No evidence of ACS, PE, dissection. First troponin negative. Patient given Lasix. Will admit for further work-up and diuresis. I the case with Dr. Elizalde who will admit. EKG Diagnostic Results Rate: normal Rhythm: NSR ST Segments: other - NSST changes Chest X-Ray Diagnostic Results Chest X-Ray Diagnostic Results : Chest X-Ray Ordered: Yes # of Views/Limited/Complete: 1 View Indication: Shortness of Breath EP Interpretation: Yes Interpretation: no consolidation, no pneumothorax, other - CM with chf Impression: Other - chf Electronically Signed by: Nikko Ferguson MD Last Vital Signs Date Time Temp Pulse Resp B/P (MAP) Pulse Ox O2 Delivery O2 Flow Rate FiO2 04/27/19 22:26 98.4 61 20 156/76 (102) 92 Room Air Status: improved Disposition: ADMITTED INPATIENT Condition: Serious Nikko Ferguson MD Apr 27, 2019 22:55
[2019-04-27] MEDS ORDERED: Nitroglycerin Subl 0.4mg tab SL PRN (23:00)
[2019-04-27 23:11] LABS: HEMATOCRIT 22.6 % (37.0-47.0); HEMOGLOBIN 7.8 G/DL (12.0-16.0); MEAN CORPUSCULAR VOLUME 84 FL (80-99); PLATELET COUNT 192 K/UL (150-450); RED BLOOD COUNT 2.68 M/UL (4.20-5.40); RED CELL DISTRIBUTION WIDTH 11.6 % (11.6-14.8); WHITE BLOOD COUNT 4.8 K/UL (4.8-10.8)
[2019-04-27 23:24] LABS: ANION GAP 8 mmol/L (5-15); BLOOD UREA NITROGEN 48 mg/dL (7-18); CALCIUM 7.7 MG/DL (8.5-10.1); CARBON DIOXIDE 24 MMOL/L (21-32); CHLORIDE 107 MMOL/L (98-107); CREATININE 2.2 MG/DL (0.55-1.30); POTASSIUM 4.4 MMOL/L (3.5-5.1); SODIUM 139 MMOL/L (136-145)
[2019-04-27 23:26] LABS: INR 1.1 (0.9-1.1)
[2019-04-27 23:35] LABS: ALANINE AMINOTRANSFERASE 27 U/L (12-78); ALBUMIN 2.8 G/DL (3.4-5.0); ALBUMIN/GLOBULIN RATIO 0.9 (1.0-2.7); ALKALINE PHOSPHATASE 30 U/L (46-116); ASPARTATE AMINO TRANSFERASE 20 U/L (15-37); BILIRUBIN,TOTAL 0.4 MG/DL (0.2-1.0)
[2019-04-27] MEDS ORDERED: Acetaminophen 500mg (ES) tab ORAL ONE (23:45)
[2019-04-27] MEDS ORDERED: TORSEMIDE20 MG ORAL (23:57)
[2019-04-27] MEDS ORDERED: HYDRALAZINE HCL50 MG ORAL (23:57)
[2019-04-27] MEDS ORDERED: GABAPENTIN300 MG ORAL (23:57)
[2019-04-27] MEDS ORDERED: CALCITRIOL0.25 MCG PO (23:57)
[2019-04-27] MEDS ORDERED: VITAMIN D250000 UNI1 ORAL (23:57)
[2019-04-27] MEDS ORDERED: ISOSORBIDE MON120 M1 PO (23:57)
[2019-04-28] VITALS (8 sets, daily range): BP systolic 132–158; BP diastolic 53–64
[2019-04-28] MEDS ORDERED: Nitroglycerin Subl 0.4mg tab SL PRN (01:45)
[2019-04-28] MEDS: NovoLOG Insulin Flexpen SUBQ SCH ×4 (06:34→21:06)
[2019-04-28] MEDS: Eliquis 2.5mg tablet ORAL SCH ×2 (10:07→18:04)
[2019-04-28] MEDS: Carvedilol 6.25mg Tab ORAL SCH ×2 (10:08→21:04)
--- NOTE | 2019-04-28 10:30 | History and Physical Report ---
DATE OF ADMISSION: 04/28/2019 REASON FOR ADMISSION: 1. Shortness of breath. 2. Acute kidney injury. HISTORY OF PRESENT ILLNESS: The patient is a pleasant 83-year-old female admitted overnight for evaluation and care of shortness of breath. The patient has chronic kidney disease. Baseline creatinine approximately 1.8 to 2.1. She is on diabetes and high blood pressure medications along with Eliquis for DVT. She presented for further evaluation and care of chest pressure and shortness of breath over the last three days. She is resting comfortably. No nausea, vomiting, or diarrhea. Feeling better overnight post diuresing. PAST MEDICAL HISTORY: 1. CKD, stage 4. 2. Diabetes mellitus. 3. Coronary artery disease. 4. Hypertension. 5. DVT. PAST SURGICAL HISTORY: Noncontributory. ALLERGIES: No known drug allergies. FAMILY HISTORY: Positive for hypertension and diabetes. REVIEW OF SYSTEMS: NEUROLOGIC: The patient denies headache, change in vision, syncope, or presyncopal episodes. CARDIOVASCULAR: No current chest pain, palpitations, or angina. PULMONARY: Mild shortness of breath and nonproductive cough. GASTROINTESTINAL/GENITOURINARY: No change in urinary or bowel habits. No nausea, vomiting, or diarrhea. ENDOCRINOLOGY: No night sweats, fevers, or chills. MUSCULOSKELETAL: The patient is feeling weak, tired and fatigued. PHYSICAL EXAMINATION: VITAL SIGNS: Blood pressure 133/57, respiratory rate 20, pulse 66, and temperature 98.4. 98% oxygen saturation on room air. GENERAL: The patient is awake and alert, not in distress. HEENT: Extraocular muscles intact. No lymphadenopathy. Oropharyngeal mucosa is clear and dry. CARDIOVASCULAR: S1, S2. No rubs or gallops. PULMONARY: Mild basilar rales. Fair air movement in all burkett. ABDOMEN: Nondistended and nontender. EXTREMITIES: 1+ edema in lower extremities. LABORATORY DATA: Labs dated April 27, 2019, sodium 139, potassium 4.4, calcium 7.7. Troponin 0.033. Beta-natriuretic peptide 8455. Hemoglobin 7.8, white cell count 4.8, and platelet count 192,000. ASSESSMENT AND PLAN: 1. Acute kidney injury on chronic kidney disease, stage 4 secondary to cardiorenal syndrome. At this time, we will continue diuresing and monitor renal function carefully. Avoid any nephrotoxins. 2. Congestive heart failure, decompensated, mild in nature. We will continue diuresing the patient. 3. Acute coronary syndrome, mild elevation in troponins. Cardiology, Dr. Domingo has been consulted. 4. Diabetes mellitus. We will continue insulin sliding scale along with Levemir and Accu-Cheks. 5. DVT prophylaxis. The patient is on Eliquis. 6. GI prophylaxis with famotidine. Tio Esquivel MD DR: MOHINI/YARELY JOB#: [id number] CC:
--- NOTE | 2019-04-28 12:35 | Cardiology Report ---
APPROVED REPORT EKG Measurement Heart [id number] Sinus rhythm with occasional premature ventricular complexes Left axis deviation Right bundle branch block Inferior infarct, age undetermined Anterolateral infarct, age undetermined Abnormal ECG poor quality ekg consider repating
--- NOTE | 2019-04-28 12:53 | Diagnostic Imaging Report ---
Indication: Chest pain Technique: One view of the chest Comparison: 10/27/2017 Findings: Opacity at the left lung base probably represents a moderate to large pleural effusion. There may be some underlying consolidation as well. There is suggestion of mild diffuse interstitial edema. The right pleural space is clear and there is no focal consolidation on the right. The heart appears enlarged. Impression: Suspect moderate to large left pleural effusion Probable left basilar consolidation Generalized mild interstitial congestion Cardiomegaly
--- NOTE | 2019-04-28 19:00 | Consultation ---
DATE OF CONSULTATION: 04/28/2019 PULMONARY CONSULTATION CONSULTING PHYSICIAN: Jose Luis Steven M.D. HISTORY OF PRESENT ILLNESS: This is an 83-year-old female with history of hypertension, diabetes mellitus, and DVT came to the hospital with chest pain and pressure over the last several days. She also feels short of breath. The patient reported increasing swelling of the feet as well. PAST MEDICAL HISTORY: Notable for hypertension, diabetes mellitus, and DVT. In the past, the patient has also been admitted for acute compression fractures of the spine as well. She also has history of CKD. Past history is also notable for meningioma resection and GERD. PAST SURGICAL HISTORY: None reported. ALLERGIES: None reported. SOCIAL HISTORY: No alcohol or tobacco usage. HOME MEDICATIONS: Reviewed and reconciled in the chart. REVIEW OF SYSTEMS: The patient denies any headaches, hematemesis, melena, or hematochezia. PHYSICAL EXAMINATION: GENERAL: Reveals an 83-year-old female. VITAL SIGNS: Blood pressure is 150/70, heart rate . Afebrile. HEENT: Unremarkable. LUNGS: Clear breath sounds. HEART: Normal heart sounds. ABDOMEN: Soft. NEUROLOGIC: Nonfocal. LABORATORY AND DIAGNOSTIC DATA: X-ray of chest showed evidence of vascular congestion and cardiomegaly with CHF. EKG shows normal sinus rhythm. Lab testing is noncontributory with normal CBC and BMP. Hemoglobin is 7.8. Creatinine 2.2. IMPRESSION: 1. Chronic kidney disease. 2. Anemia. 3. Congestive heart failure. 4. Pulmonary edema. 5. Hypertension. 6. Diabetes. DISCUSSION: Agree with admission and care. The patient needs to be diuresed carefully given her elevated renal function. Continue Eliquis, Coreg, and Pepcid. We will follow carefully. Insulin control. Jose Luis Steven M.D. DR: NICK JOB#: [id number] CC:
[2019-04-28] MEDS: Levemir Flexpen SUBQ SCH (21:05)
[2019-04-29] VITALS (7 sets, daily range): BP systolic 90–172; BP diastolic 36–77
[2019-04-29] MEDS: NovoLOG Insulin Flexpen SUBQ SCH ×4 (06:56→21:15)
--- NOTE | 2019-04-29 08:12 | Nephrology Progress Note ---
Assessment/Plan Assessment/Plan: A/P 1) CHF- breathing better - continue lasix - plan on Dc tomorrow - await cardiology reccs 2) ED on CKD 4- CRS AM labs pending 3) HTN- stable 4) DVT- eliquis 5) DM- insulin therapy Subjective Date patient seen: Apr 29, 2019 Time patient seen: 08:10 ROS Limited/Unobtainable: No Allergies: Coded Allergies: No Known Allergies (Verified , 03/25/17) Subjective Patient is feeling better. In no overt distress Objective Last 24 Hour Vital Signs Date Time Temp Pulse Resp B/P (MAP) Pulse Ox O2 Delivery O2 Flow Rate FiO2 04/29/19 08:00 97.5 69 15 172/77 (108) 95 04/29/19 04:00 59 04/29/19 04:00 98.0 68 18 154/74 (100) 99 04/29/19 00:00 98.4 60 18 147/54 (85) 98 04/29/19 00:00 64 04/28/19 21:04 64 132/64 04/28/19 21:00 Nasal Cannula 2.0 04/28/19 20:00 99.0 64 18 132/64 (86) 99 04/28/19 20:00 67 04/28/19 16:00 63 04/28/19 16:00 98.8 64 20 133/57 (82) 98 04/28/19 12:00 99.5 76 20 133/57 (82) 97 04/28/19 12:00 72 04/28/19 10:08 66 133/57 04/28/19 10:07 66 133/57 04/28/19 09:00 Nasal Cannula 2.0 04/28/19 08:52 98.4 66 20 133/57 (82) 98 Intake and Output 04/28/19 04/29/19 19:00 07:00 Intake Total 1810 ml 240 ml Output Total 600 ml Balance 1210 ml 240 ml Intake Oral 1810 ml 240 ml Output Urine Total 600 ml # Voids 6 2 # Bowel Movements 1 Height (Feet): 5 Height (Inches): 2.00 Weight (Pounds): 149 General Appearance: no apparent distress, alert EENT: normal ENT inspection Neck: normal alignment, supple Cardiovascular: normal rate, regular rhythm Respiratory/Chest: rhonchi - bilaterally Abdomen: non tender, soft Edema: no edema noted Arm (L), no edema noted Arm (R), no edema noted Leg (L), no edema noted Leg (R), no edema noted Pedal (L), no edema noted Pedal (R), no edema noted Generalized Tio Esquivel MD Apr 29, 2019 08:12
[2019-04-29] MEDS: Eliquis 2.5mg tablet ORAL SCH ×2 (08:21→17:25)
[2019-04-29] MEDS: Carvedilol 6.25mg Tab ORAL SCH ×2 (08:21→21:13)
--- NOTE | 2019-04-29 08:45 | Pulmonology Progress Note ---
Assessment/Plan Assessment/Plan IMPRESSION: 1. Chronic kidney disease. 2. Anemia. 3. Congestive heart failure. 4. Pulmonary edema. 5. Hypertension. 6. Diabetes. DISCUSSION: Agree with admission and care. Continue careful diuresis. Continue Eliquis, Coreg, and Pepcid. Continue O2 and pulmonary hygiene. I will follow carefully. Jose Luis Steven M.D. Subjective Interval Events: None new Constitutional: Reports: no symptoms HEENT: Repors: no symptoms Respiratory: Reports: no symptoms Cardiovascular: Reports: no symptoms Gastrointestinal/Abdominal: Reports: no symptoms Allergies: Coded Allergies: No Known Allergies (Verified , 03/25/17) Objective Last 24 Hour Vital Signs Date Time Temp Pulse Resp B/P (MAP) Pulse Ox O2 Delivery O2 Flow Rate FiO2 04/29/19 08:30 Nasal Cannula 2.0 04/29/19 08:21 69 172/77 04/29/19 08:21 69 172/77 04/29/19 08:00 97.5 69 15 172/77 (108) 95 04/29/19 04:00 59 04/29/19 04:00 98.0 68 18 154/74 (100) 99 04/29/19 00:00 98.4 60 18 147/54 (85) 98 04/29/19 00:00 64 04/28/19 21:04 64 132/64 04/28/19 21:00 Nasal Cannula 2.0 04/28/19 20:00 99.0 64 18 132/64 (86) 99 04/28/19 20:00 67 04/28/19 16:00 63 04/28/19 16:00 98.8 64 20 133/57 (82) 98 04/28/19 12:00 99.5 76 20 133/57 (82) 97 04/28/19 12:00 72 04/28/19 10:08 66 133/57 04/28/19 10:07 66 133/57 04/28/19 09:00 Nasal Cannula 2.0 04/28/19 08:52 98.4 66 20 133/57 (82) 98 Intake and Output 04/28/19 04/29/19 19:00 07:00 Intake Total 1810 ml 240 ml Output Total 600 ml Balance 1210 ml 240 ml Intake Oral 1810 ml 240 ml Output Urine Total 600 ml # Voids 6 2 # Bowel Movements 1 General Appearance: no acute distress HEENT: normocephalic Respiratory/Chest: chest wall non-tender, lungs clear Cardiovascular: normal peripheral pulses, normal rate Current Medications Medications (Trade) Dose Ordered Sig/Rosa Route PRN Reason Start Time Stop Time Status Last Admin Dose Admin Acetaminophen (Tylenol) 650 mg Q4H PRN ORAL Mild Pain (Pain Scale 1-3) 04/28/19 01:45 05/28/19 01:44 Amlodipine Besylate (Norvasc) 10 mg DAILY ORAL 04/28/19 09:00 05/28/19 08:59 04/29/19 08:21 Apixaban (Eliquis) 2.5 mg BID ORAL 04/28/19 09:00 05/28/19 08:59 04/29/19 08:21 Carvedilol (Coreg) 6.25 mg EVERY 12 HOURS ORAL 04/28/19 09:00 05/28/19 08:59 04/29/19 08:21 Dextrose (Dextrose 50%) 25 ml Q30M PRN IV Hypoglycemia 04/28/19 01:45 05/28/19 01:44 Dextrose (Dextrose 50%) 50 ml Q30M PRN IV Hypoglycemia 04/28/19 01:45 05/28/19 01:44 Famotidine (Pepcid) 20 mg DAILY ORAL 04/28/19 09:00 05/28/19 08:59 04/29/19 08:22 Furosemide (Lasix) 40 mg TID IV 04/28/19 09:00 05/28/19 08:59 04/29/19 08:21 Insulin Aspart (NovoLOG) BEFORE MEALS AND HS SUBQ 04/28/19 06:30 05/28/19 06:29 04/29/19 06:56 Insulin Detemir (Levemir) 13 units Q24H SUBQ 04/28/19 21:00 05/28/19 20:59 04/28/19 21:05 Nitroglycerin (Ntg) 0.4 mg Q5M PRN SL Prn Chest Pain 04/28/19 01:45 05/28/19 01:44 Ondansetron HCl (Zofran) 4 mg Q6H PRN IVP Nausea & Vomiting 04/28/19 01:45 05/28/19 01:44 Jose Luis Steven MD Apr 29, 2019 08:45
--- NOTE | 2019-04-29 09:25 | Consultation ---
History of Present Illness General Time patient seen: 09:22 Chief Complaint: Dyspnea/Respdistress Present Illness HPI The patient is a pleasant 83-year-old female admitted overnight for evaluation and care of shortness of breath. The patient has chronic kidney disease. Baseline creatinine approximately 1.8 to 2.1. She is on diabetes and high blood pressure medications along with Eliquis for DVT. She presented for further evaluation and care of chest pressure and shortness of breath over the last three days. CXR with Suspect moderate to large left pleural effusion Initial troponin 0.03 Allergies: Coded Allergies: No Known Allergies (Verified , 03/25/17) Medication History Scheduled Acetaminophen* (Tylenol Extra Strength*), 500 MG ORAL Q6H Amlodipine Besylate* (Amlodipine Besylate*), 10 MG ORAL DAILY, (Reported) Carvedilol* (Carvedilol*), 25 MG ORAL EVERY 12 HOURS, (Reported) Cephalexin* (Keflex*), 500 MG ORAL Q6H Cephalexin* (Keflex*), 500 MG ORAL EVERY 6 HOURS Cephalexin* (Keflex*), 500 MG ORAL EVERY 6 HOURS Chlorthalidone* (Chlorthalidone*), 25 MG ORAL DAILY, (Reported) Ergocalciferol (Vitamin D2)* (Vitamin D*), 50,000 UNIT ORAL ONCE A WEEK, ( Reported) Fenofibrate Nanocrystallized (Fenofibrate), 160 MG ORAL DAILY, (Reported) Ferrous Sulfate* (Ferrous Sulfate*), 325 MG ORAL DAILY, (Reported) Furosemide* (Lasix*), 20 MG ORAL DAILY, (Reported) Furosemide* (Lasix*), 40 MG ORAL DAILY Gabapentin* (Gabapentin*), 300 MG ORAL BEDTIME, (Reported) Glyburide/Metformin Hcl (Glyburide-Metformin 2.5-500 Mg), 1 EACH PO BID, ( Reported) Hydralazine Hcl* (Hydralazine Hcl*), 50 MG ORAL EVERY 8 HOURS, (Reported) Insulin Aspart (Novolog Flexpen), 5 UNITS SUBQ NOVOTIAC Insulin Detemir (Levemir Flexpen), 15 UNITS SUBQ BEDTIME Lidocaine Patch* (Lidoderm Patch*), 1 PATCH TDERMAL DAILY Lisinopril (Lisinopril*), 20 MG ORAL BID, (Reported) Loperamide Hcl (Loperamide), 2 MG PO NEEDED Magnesium Oxide (Magnesium Oxide), 400 MG ORAL DAILY, (Reported) Metformin Hcl* (Metformin Hcl*), 850 MG ORAL TID, (Reported) Methocarbamol* (Robaxin-750*), 750 MG PO QID Metoprolol Succinate* (Metoprolol Succinate*), 50 MG ORAL BID, (Reported) Nitrofurantoin Monohyd/M-Cryst* (Macrobid 100 Mg*), 100 MG ORAL EVERY 12 HOURS Omeprazole (Omeprazole), 20 MG ORAL BID, (Reported) Oxcarbazepine (Trileptal), 150 MG PO QHS Potassium Chloride (Potassium Chloride), 20 MEQ ORAL DAILY Ramipril* (Ramipril*), 20 MG ORAL DAILY, (Reported) Rivaroxaban (Xarelto*), 20 MG ORAL DAILY, (Reported) Simvastatin (Zocor), 80 MG ORAL BEDTIME, (Reported) Torsemide* (Demadex*), 20 MG ORAL DAILY, (Reported) Vitamin B Complex (B Complete), 1 TAB ORAL DAILY Scheduled PRN Acetaminophen* (Tylenol Extra Strength*), 500 MG ORAL Q8H PRN for Prn Headache/ Temp > 101 Ibuprofen* (Motrin*), 400 MG ORAL Q8H PRN for foot pain Tramadol Hcl* (Ultram*), 50 MG ORAL Q6H PRN for For Pain Miscellaneous Medications Apixaban (Eliquis), 2.5 MG PO, (Reported) Calcitriol (Calcitriol), 0.25 MCG PO, (Reported) Insulin Lispro (Humalog), 0 SUBQ, (Reported) Isosorbide Mononitrate (Isosorbide Mononitrate Er), 120 MG PO, (Reported) Isosorbide Mononitrate (Isosorbide Mononitrate Er), 120 MG PO, (Reported) Ofloxacin (Ofloxacin), 5 ML OT, (Reported) Unable to Obtain Medications (Unable To Obtain Meds), (Reported) Patient History Healthcare decision maker Resuscitation status Full Code Advanced Directive on File No Review of Systems Constitutional: Reports: no symptoms Eye: Reports: no symptoms ENT: Reports: no symptoms Respiratory: Reports: shortness of breath Cardiovascular: Reports: chest pain Gastrointestinal: Reports: no symptoms Genitourinary: Reports: no symptoms Musculoskeletal: Reports: no symptoms Skin: Reports: no symptoms Psychiatric: Reports: no symptoms Neurological: Reports: no symptoms Endocrine: Reports: no symptoms Hematologic/Lymphatic: Reports: no symptoms Physical Exam General Appearance: no apparent distress, alert Lines, tubes and drains: peripheral HEENT: normocephalic, atraumatic, anicteric, mucous membranes moist, PERRL Neck: normal alignment, supple, normal inspection Respiratory/Chest: no respiratory distress, no accessory muscle use, crackles/ rales, rhonchi - left Cardiovascular/Chest: normal peripheral pulses, normal rate, regular rhythm Abdomen: normal bowel sounds, non tender, soft, no organomegaly, no mass Extremities: normal range of motion, non-tender, normal inspection, no calf tenderness Skin Exam: normal pigmentation, warm/dry, cyanotic 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: transplant 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 II-XII grossly normal, no motor/sensory deficits Last 24 Hour Vital Signs Date Time Temp Pulse Resp B/P (MAP) Pulse Ox O2 Delivery O2 Flow Rate FiO2 04/29/19 08:30 Nasal Cannula 2.0 04/29/19 08:21 69 172/77 04/29/19 08:21 69 172/77 04/29/19 08:00 97.5 69 15 172/77 (108) 95 04/29/19 04:00 59 04/29/19 04:00 98.0 68 18 154/74 (100) 99 04/29/19 00:00 98.4 60 18 147/54 (85) 98 04/29/19 00:00 64 04/28/19 21:04 64 132/64 04/28/19 21:00 Nasal Cannula 2.0 04/28/19 20:00 99.0 64 18 132/64 (86) 99 04/28/19 20:00 67 04/28/19 16:00 63 04/28/19 16:00 98.8 64 20 133/57 (82) 98 04/28/19 12:00 99.5 76 20 133/57 (82) 97 04/28/19 12:00 72 04/28/19 10:08 66 133/57 04/28/19 10:07 66 133/57 Intake and Output 04/28/19 04/29/19 19:00 07:00 Intake Total 1810 ml 240 ml Output Total 600 ml Balance 1210 ml 240 ml Intake Oral 1810 ml 240 ml Output Urine Total 600 ml # Voids 6 2 # Bowel Movements 1 Height (Feet): 5 Height (Inches): 2.00 Weight (Pounds): 149 Medications Current Medications Medications (Trade) Dose Ordered Sig/Rosa Route PRN Reason Start Time Stop Time Status Last Admin Dose Admin Acetaminophen (Tylenol) 650 mg Q4H PRN ORAL Mild Pain (Pain Scale 1-3) 04/28/19 01:45 05/28/19 01:44 Amlodipine Besylate (Norvasc) 10 mg DAILY ORAL 04/28/19 09:00 05/28/19 08:59 04/29/19 08:21 Apixaban (Eliquis) 2.5 mg BID ORAL 04/28/19 09:00 05/28/19 08:59 04/29/19 08:21 Carvedilol (Coreg) 6.25 mg EVERY 12 HOURS ORAL 04/28/19 09:00 05/28/19 08:59 04/29/19 08:21 Dextrose (Dextrose 50%) 25 ml Q30M PRN IV Hypoglycemia 04/28/19 01:45 05/28/19 01:44 Dextrose (Dextrose 50%) 50 ml Q30M PRN IV Hypoglycemia 04/28/19 01:45 05/28/19 01:44 Famotidine (Pepcid) 20 mg DAILY ORAL 04/28/19 09:00 05/28/19 08:59 04/29/19 08:22 Furosemide (Lasix) 40 mg TID IV 04/28/19 09:00 05/28/19 08:59 04/29/19 08:21 Insulin Aspart (NovoLOG) BEFORE MEALS AND HS SUBQ 04/28/19 06:30 05/28/19 06:29 04/29/19 06:56 Insulin Detemir (Levemir) 13 units Q24H SUBQ 04/28/19 21:00 05/28/19 20:59 04/28/19 21:05 Nitroglycerin (Ntg) 0.4 mg Q5M PRN SL Prn Chest Pain 04/28/19 01:45 05/28/19 01:44 Ondansetron HCl (Zofran) 4 mg Q6H PRN IVP Nausea & Vomiting 04/28/19 01:45 05/28/19 01:44 Assessment/Plan Status: stable Assessment/Plan: Assessment 1. Chronic kidney disease. 2. Anemia. 3. Congestive heart failure. 4. Pulmonary edema. 5. Hypertension. 6. Diabetes. 7. Chest pain 8. Pleural effusion Plan: TTE Ischemia evaluation Continue diuresis Serial CXR, consider thoracentesis if not better Continue william/Parker Gipson MD Apr 29, 2019 09:25
[2019-04-29 09:28] LABS: EOSINOPHILS % (AUTO) 4.1 % (0.0-3.0); HEMATOCRIT 24.2 % (37.0-47.0); HEMOGLOBIN 8.1 G/DL (12.0-16.0); LYMPHOCYTES % (AUTO) 19.9 % (20.0-45.0); MEAN CORPUSCULAR VOLUME 87 FL (80-99); MONOCYTES % (AUTO) 9.4 % (1.0-10.0); NEUTROPHILS % (AUTO) 64.6 % (45.0-75.0); PLATELET COUNT 202 K/UL (150-450); RED BLOOD COUNT 2.78 M/UL (4.20-5.40); RED CELL DISTRIBUTION WIDTH 12.9 % (11.6-14.8)
[2019-04-29] MEDS ORDERED: Lexiscan 0.4mg/5ml syringe IV PRN (09:30)
[2019-04-29] MEDS ORDERED: Lexiscan 0.4mg/5ml syringe IV SCH (09:30)
[2019-04-29 09:39] LABS: ANION GAP 7 mmol/L (5-15); BLOOD UREA NITROGEN 42 mg/dL (7-18); CALCIUM 8.1 MG/DL (8.5-10.1); CARBON DIOXIDE 28 MMOL/L (21-32); CHLORIDE 107 MMOL/L (98-107); CREATININE 2.2 MG/DL (0.55-1.30); POTASSIUM 4.1 MMOL/L (3.5-5.1); SODIUM 142 MMOL/L (136-145)
[2019-04-29] MEDS ORDERED: FENOFIBRATE160 MG ORAL (20:24)
[2019-04-29] MEDS ORDERED: LANTUS SOL100 UNIT/1 SUBQ (20:24)
[2019-04-29] MEDS: Levemir Flexpen SUBQ SCH (21:14)
[2019-04-30] VITALS: BP 158/66
[2019-04-30 04:00] VITALS: BP 165/88
[2019-04-30] MEDS: NovoLOG Insulin Flexpen SUBQ SCH ×4 (06:22→21:05)
[2019-04-30 07:05] LABS: ANION GAP 4 mmol/L (5-15); BLOOD UREA NITROGEN 40 mg/dL (7-18); CALCIUM 8.1 MG/DL (8.5-10.1); CARBON DIOXIDE 32 MMOL/L (21-32); CHLORIDE 104 MMOL/L (98-107); CREATININE 2.3 MG/DL (0.55-1.30); POTASSIUM 3.6 MMOL/L (3.5-5.1); SODIUM 140 MMOL/L (136-145)
[2019-04-30 08:00] VITALS: BP 193/87
[2019-04-30] MEDS: Eliquis 2.5mg tablet ORAL SCH ×2 (08:30→17:30)
--- NOTE | 2019-04-30 10:10 | Nephrology Progress Note ---
Assessment/Plan Status: stable Assessment/Plan: A/P 1) CHF- breathing better - switch lasix to po - plan on DC once cleared by Cards 2) ED on CKD 4- CRS. Cr stable at 2.3 3) HTN- stable 4) DVT- eliquis. Monitor pleural effusion 5) DM- insulin therapy Subjective Date patient seen: Apr 30, 2019 Time patient seen: 10:05 ROS Limited/Unobtainable: No Allergies: Coded Allergies: No Known Allergies (Verified , 03/25/17) Subjective Patient resting. Awaiting stress test Objective Last 24 Hour Vital Signs Date Time Temp Pulse Resp B/P (MAP) Pulse Ox O2 Delivery O2 Flow Rate FiO2 04/30/19 09:00 Nasal Cannula 2.0 04/30/19 08:30 77 193/87 04/30/19 08:00 98.2 77 18 193/87 (122) 94 04/30/19 07:32 78 04/30/19 04:00 98.3 68 18 165/88 (113) 96 04/30/19 04:00 71 04/30/19 00:00 67 04/30/19 00:00 98.5 66 18 158/66 (96) 98 04/29/19 21:13 65 162/70 04/29/19 21:00 Nasal Cannula 2.0 04/29/19 20:00 62 04/29/19 20:00 98.2 65 20 162/70 (100) 100 04/29/19 16:00 98.0 69 15 158/71 (100) 95 04/29/19 15:18 70 04/29/19 12:00 98.1 70 15 167/53 (91) 95 04/29/19 11:38 64 04/29/19 10:40 158/60 (92) Intake and Output 04/29/19 04/30/19 19:00 07:00 Intake Total 400 ml 300 ml Balance 400 ml 300 ml Intake Oral 400 ml 300 ml # Voids 4 2 Laboratory Tests 04/30/19 04:25: Sodium Level 140, Potassium Level 3.6, Chloride Level 104, Carbon Dioxide Level 32, Anion Gap 4L, Blood Urea Nitrogen 40H, Creatinine 2.3H, Estimat Glomerular Filtration Rate , Glucose Level 262H, Calcium Level 8.1L Height (Feet): 5 Height (Inches): 2.00 Weight (Pounds): 149 General Appearance: no apparent distress, alert EENT: normal ENT inspection Neck: normal alignment, supple Cardiovascular: normal rate, regular rhythm Respiratory/Chest: crackles/rales Abdomen: non tender, soft Edema: no edema noted Arm (L), no edema noted Arm (R), no edema noted Leg (L), no edema noted Leg (R), no edema noted Pedal (L), no edema noted Pedal (R), no edema noted Generalized Tio Esquivel MD Apr 30, 2019 10:10
[2019-04-30] MEDS: Furosemide 40mg tab ORAL SCH ×3 (10:15→22:50)
--- NOTE | 2019-04-30 10:20 | Pulmonology Progress Note ---
Assessment/Plan Assessment/Plan IMPRESSION: 1. Chronic kidney disease. 2. Anemia. 3. Congestive heart failure. 4. Pulmonary edema. 5. Hypertension. 6. Diabetes. DISCUSSION: Agree with admission and care. Continue careful diuresis. Continue Eliquis, Coreg, and Pepcid. Continue O2 and pulmonary hygiene. I will follow carefully. Discussed with Dr. Medeiros; no need for thoracentesis as pt is normoxemic and asymptomatic from a pulmonary standpoint Jose Luis Steven M.D. Subjective Interval Events: Feeling better; no new problems Constitutional: Reports: no symptoms HEENT: Repors: no symptoms Respiratory: Reports: no symptoms Cardiovascular: Reports: no symptoms Gastrointestinal/Abdominal: Reports: no symptoms Allergies: Coded Allergies: No Known Allergies (Verified , 03/25/17) Objective Last 24 Hour Vital Signs Date Time Temp Pulse Resp B/P (MAP) Pulse Ox O2 Delivery O2 Flow Rate FiO2 04/30/19 09:00 Nasal Cannula 2.0 04/30/19 08:30 77 193/87 04/30/19 08:00 98.2 77 18 193/87 (122) 94 04/30/19 07:32 78 04/30/19 04:00 98.3 68 18 165/88 (113) 96 04/30/19 04:00 71 04/30/19 00:00 67 04/30/19 00:00 98.5 66 18 158/66 (96) 98 04/29/19 21:13 65 162/70 04/29/19 21:00 Nasal Cannula 2.0 04/29/19 20:00 62 04/29/19 20:00 98.2 65 20 162/70 (100) 100 04/29/19 16:00 98.0 69 15 158/71 (100) 95 04/29/19 15:18 70 04/29/19 12:00 98.1 70 15 167/53 (91) 95 04/29/19 11:38 64 04/29/19 10:40 158/60 (92) Intake and Output 04/29/19 04/30/19 19:00 07:00 Intake Total 400 ml 300 ml Balance 400 ml 300 ml Intake Oral 400 ml 300 ml # Voids 4 2 General Appearance: no acute distress HEENT: normocephalic Respiratory/Chest: chest wall non-tender, lungs clear Cardiovascular: normal peripheral pulses, normal rate Laboratory Tests 04/30/19 04:25: Sodium Level 140, Potassium Level 3.6, Chloride Level 104, Carbon Dioxide Level 32, Anion Gap 4L, Blood Urea Nitrogen 40H, Creatinine 2.3H, Estimat Glomerular Filtration Rate , Glucose Level 262H, Calcium Level 8.1L Current Medications Medications (Trade) Dose Ordered Sig/Rosa Route PRN Reason Start Time Stop Time Status Last Admin Dose Admin Acetaminophen (Tylenol) 650 mg Q4H PRN ORAL Mild Pain (Pain Scale 1-3) 04/28/19 01:45 05/28/19 01:44 Amlodipine Besylate (Norvasc) 10 mg DAILY ORAL 04/28/19 09:00 05/28/19 08:59 04/30/19 08:30 Apixaban (Eliquis) 2.5 mg BID ORAL 04/28/19 09:00 05/28/19 08:59 04/30/19 08:30 Carvedilol (Coreg) 12.5 mg EVERY 12 HOURS ORAL 04/30/19 21:00 05/28/19 08:59 Dextrose (Dextrose 50%) 25 ml Q30M PRN IV Hypoglycemia 04/28/19 01:45 05/28/19 01:44 Dextrose (Dextrose 50%) 50 ml Q30M PRN IV Hypoglycemia 04/28/19 01:45 05/28/19 01:44 Famotidine (Pepcid) 20 mg DAILY ORAL 04/28/19 09:00 05/28/19 08:59 04/30/19 08:30 Insulin Aspart (NovoLOG) BEFORE MEALS AND HS SUBQ 04/28/19 06:30 05/28/19 06:29 04/30/19 06:22 Insulin Detemir (Levemir) 13 units Q24H SUBQ 04/28/19 21:00 05/28/19 20:59 04/29/19 21:14 Nitroglycerin (Ntg) 0.4 mg Q5M PRN SL Prn Chest Pain 04/28/19 01:45 05/28/19 01:44 Ondansetron HCl (Zofran) 4 mg Q6H PRN IVP Nausea & Vomiting 04/28/19 01:45 05/28/19 01:44 Regadenoson (Lexiscan) 0.4 mg ONCE PRN IV STRESS TEST 04/29/19 09:30 05/01/19 23:59 Jose Luis Steven MD Apr 30, 2019 10:20
[2019-04-30 12:00] VITALS: BP 151/60
--- NOTE | 2019-04-30 14:20 | Cardiology Progress Note ---
Assessment/Plan Status: stable Assessment/Plan Assessment 1. Chronic kidney disease. 2. Anemia. 3. Congestive heart failure. 4. Pulmonary edema. 5. Hypertension. 6. Diabetes. 7. Chest pain 8. Pleural effusion Plan: Awaiting ischemia evaluation Continue current medications. Subjective Cardiovascular: Reports: no symptoms Respiratory: Reports: no symptoms Gastrointestinal/Abdominal: Reports: no symptoms Genitourinary: Reports: no symptoms Subjective No acute events, no chest pain, awaiting stress test, tolerating medications, on room air, no indication for thoracetesis per pulmonary. Objective Last 24 Hour Vital Signs Date Time Temp Pulse Resp B/P (MAP) Pulse Ox O2 Delivery O2 Flow Rate FiO2 04/30/19 12:00 96.8 75 18 151/60 (90) 93 04/30/19 11:45 76 04/30/19 09:00 Nasal Cannula 2.0 04/30/19 08:30 77 193/87 04/30/19 08:00 98.2 77 18 193/87 (122) 94 04/30/19 07:32 78 04/30/19 04:00 98.3 68 18 165/88 (113) 96 04/30/19 04:00 71 04/30/19 00:00 67 04/30/19 00:00 98.5 66 18 158/66 (96) 98 04/29/19 21:13 65 162/70 04/29/19 21:00 Nasal Cannula 2.0 04/29/19 20:00 62 04/29/19 20:00 98.2 65 20 162/70 (100) 100 04/29/19 16:00 98.0 69 15 158/71 (100) 95 04/29/19 15:18 70 General Appearance: no apparent distress, alert EENT: PERRL/EOMI, normal ENT inspection, TMs normal, pharynx normal Neck: non-tender, normal alignment, supple, normal inspection, no JVD Rhythm: NSR Cardiovascular: normal peripheral pulses, normal rate, regular rhythm Respiratory/Chest: chest wall non-tender, lungs clear, normal breath sounds, no respiratory distress Abdomen: normal bowel sounds, non tender, soft, no organomegaly, no mass Extremities: normal range of motion, non-tender, normal inspection, no calf tenderness, no swelling 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: 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 II-XII grossly normal, no motor/sensory deficits Intake and Output 04/29/19 04/30/19 19:00 07:00 Intake Total 400 ml 300 ml Balance 400 ml 300 ml Intake Oral 400 ml 300 ml # Voids 4 2 Laboratory Tests Test 04/30/19 04:25 Sodium Level 140 MMOL/L (136-145) Potassium Level 3.6 MMOL/L (3.5-5.1) Chloride Level 104 MMOL/L (98-107) Carbon Dioxide Level 32 MMOL/L (21-32) Anion Gap 4 mmol/L (5-15) L Blood Urea Nitrogen 40 mg/dL (7-18) H Creatinine 2.3 MG/DL (0.55-1.30) H Estimat Glomerular Filtration Rate mL/min (>60) Glucose Level 262 MG/DL (74-106) H Calcium Level 8.1 MG/DL (8.5-10.1) L Parker Domingo MD Apr 30, 2019 14:20
--- NOTE | 2019-04-30 14:59 | Diagnostic Imaging Report ---
Indication: chest pain Technique: The study was conducted under the supervision of a radio performer. lexiscan (regadenoson) infusion over 10 seconds followed by intravenous administration of 32.5 mCi of technetium 99m Myoview was performed. Three plane SPECT imaging of the heart was then performed. A resting study was performed as part of the one-day protocol with 10.8 mCi of technetium 99m myoview injected intravenously at that time. Three plane SPECT imaging of the heart was obtained. Comparison: None Clinical data: 1. Clinical response: Non ischemic 2. Electrocardiographic response: Non ischemic Findings: The myocardial perfusion scan demonstrates no definite fixed or reversible perfusion defects. LVEF estimated at 82% IMPRESSION: Negative myocardial perfusion scan
[2019-04-30 15:56] VITALS: BP 162/53
[2019-04-30 20:00] VITALS: BP 176/65
[2019-04-30] MEDS: Carvedilol 12.5mg tab ORAL SCH (21:01)
[2019-04-30] MEDS: Levemir Flexpen SUBQ SCH (21:04)
[2019-05-01] VITALS: BP 159/48
[2019-05-01 04:00] VITALS: BP 158/58
[2019-05-01] MEDS: Furosemide 40mg tab ORAL SCH ×2 (05:59→14:00)
[2019-05-01] MEDS: NovoLOG Insulin Flexpen SUBQ SCH ×3 (06:00→16:30)
--- NOTE | 2019-05-01 07:58 | Nephrology Progress Note ---
Assessment/Plan Status: stable Assessment/Plan: A/P 1) CHF- breathing better. 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 Cr stable at 2.3 3) HTN- stable 4) DVT- eliquis. Monitor pleural effusion 5) DM- insulin therapy HH with PT arranged Subjective Date patient seen: May 01, 2019 Time patient seen: 07:34 ROS Limited/Unobtainable: No Allergies: Coded Allergies: No Known Allergies (Verified , 03/25/17) Subjective Patient much improved. Completed stress test Objective Last 24 Hour Vital Signs Date Time Temp Pulse Resp B/P (MAP) Pulse Ox O2 Delivery O2 Flow Rate FiO2 05/01/19 04:00 98.2 74 16 158/58 (91) 98 05/01/19 04:00 74 05/01/19 00:00 98.1 62 16 159/48 (85) 98 05/01/19 00:00 62 04/30/19 21:01 82 182/66 04/30/19 21:00 Nasal Cannula 2.0 04/30/19 20:00 76 04/30/19 20:00 98.4 76 16 176/65 (102) 94 04/30/19 16:46 71 04/30/19 15:56 98.3 80 18 162/53 (89) 97 04/30/19 12:00 96.8 75 18 151/60 (90) 93 04/30/19 11:45 76 04/30/19 09:00 Nasal Cannula 2.0 04/30/19 08:30 77 193/87 04/30/19 08:00 98.2 77 18 193/87 (122) 94 Intake and Output 04/30/19 05/01/19 19:00 07:00 Intake Total 100 ml Balance 100 ml Intake Oral 100 ml # Voids 4 1 # Bowel Movements 1 Height (Feet): 5 Height (Inches): 2.00 Weight (Pounds): 149 General Appearance: no apparent distress, alert EENT: normal ENT inspection Neck: normal alignment, supple Cardiovascular: normal rate, regular rhythm Respiratory/Chest: rhonchi - bilaterally Abdomen: non tender, soft Edema: no edema noted Arm (L), no edema noted Arm (R), no edema noted Leg (L), no edema noted Leg (R), no edema noted Pedal (L), no edema noted Pedal (R), no edema noted Generalized Tio Esquivel MD May 01, 2019 07:58
[2019-05-01 08:00] VITALS: BP 138/61
--- NOTE | 2019-05-01 08:03 | Discharge Instructions ---
Discharge Instructions Discharge Instructions Services at Discharge: home health services Activity: resume normal activities Follow Up Orders F/U [address] Esquivel [phone] For Congestive Heart Failure Reminder Report to your physician any weight gain of 5 pounds or more in one week. Tio Esquivel MD May 01, 2019 08:03
[2019-05-01] MEDS: Carvedilol 12.5mg tab ORAL SCH (09:55)
[2019-05-01] MEDS: Eliquis 2.5mg tablet ORAL SCH (09:55)
--- NOTE | 2019-05-01 10:39 | Cardiology Report ---
APPROVED REPORT EXAM: Two-dimensional and M-mode echocardiogram with Doppler and color Doppler. INDICATION Chest Pain M-Mode DIMENSIONS IVSd1.2 (0.7-1.1cm)Left Atrium (MM)4.6 (1.6-4.0cm) LVDd6.0 (3.5-5.6cm)Aortic Root3.8 (2.0-3.7cm) PWd1.1 (0.7-1.1cm)Aortic Cusp Exc.2.2 (1.5-2.0cm) IVSs1.7 cm LVDs2.9 (2.5-4.0cm) PWs1.6 cm Normal left ventricular chamber size, systolic function and wall motion . Left ventricular ejection fraction estimated to be 60 %. Mild left ventricular hypertrophy. Small circumferential pericardial effusion. Pleural effusion present . All other cardiac chamber sizes are within normal limits. Focal aortic valve sclerosis with adequate cusp excursion. Thickened mitral valve leaflets with normal excursion. Mitral annulus and aortic root calcification. Normal pulmonic valve structure. Normal tricuspid valve structure. IVC at normal size without physiologic collapse. A color flow and spectral Doppler study was performed and revealed: No aortic insufficiency. Mild mitral regurgitation. Mitral diastolic velocities suggest reduced left ventricular relaxation c/w mild LV diastolic dysfunction (Grade I ) Mild tricuspid regurgitation. Tricuspid systolic velocities suggests peak right ventricular systolic pressure of 50 mmHg,consistent with moderate pulmonary hypertension.
--- NOTE | 2019-05-01 11:44 | Pulmonology Progress Note ---
Assessment/Plan Assessment/Plan IMPRESSION: 1. Chronic kidney disease. 2. Anemia. 3. Congestive heart failure. 4. Pulmonary edema. 5. Hypertension. 6. Diabetes. DISCUSSION: Agree with admission and care. Continue careful diuresis. Continue Eliquis, Coreg, and Pepcid. Continue O2 and pulmonary hygiene. I will follow carefully. Discussed with Dr. Medeiros; no need for thoracentesis as pt is normoxemic and asymptomatic from a pulmonary standpoint Jose Luis Steven M.D. Subjective Interval Events: None new Constitutional: Reports: no symptoms HEENT: Repors: no symptoms Respiratory: Reports: no symptoms Cardiovascular: Reports: no symptoms Gastrointestinal/Abdominal: Reports: no symptoms Allergies: Coded Allergies: No Known Allergies (Verified , 03/25/17) Objective Last 24 Hour Vital Signs Date Time Temp Pulse Resp B/P (MAP) Pulse Ox O2 Delivery O2 Flow Rate FiO2 05/01/19 09:55 67 158/61 05/01/19 09:54 67 158/61 05/01/19 08:23 Nasal Cannula 2.0 05/01/19 04:00 98.2 74 16 158/58 (91) 98 05/01/19 04:00 74 05/01/19 00:00 98.1 62 16 159/48 (85) 98 05/01/19 00:00 62 04/30/19 21:01 82 182/66 04/30/19 21:00 Nasal Cannula 2.0 04/30/19 20:00 76 04/30/19 20:00 98.4 76 16 176/65 (102) 94 04/30/19 16:46 71 04/30/19 15:56 98.3 80 18 162/53 (89) 97 04/30/19 12:00 96.8 75 18 151/60 (90) 93 04/30/19 11:45 76 Intake and Output 04/30/19 05/01/19 19:00 07:00 Intake Total 100 ml 120 ml Balance 100 ml 120 ml Intake Oral 100 ml 120 ml # Voids 4 1 # Bowel Movements 1 General Appearance: no acute distress HEENT: normocephalic Respiratory/Chest: chest wall non-tender, lungs clear Cardiovascular: normal peripheral pulses, normal rate Abdomen: normal bowel sounds Current Medications Medications (Trade) Dose Ordered Sig/Rosa Route PRN Reason Start Time Stop Time Status Last Admin Dose Admin Acetaminophen (Tylenol) 650 mg Q4H PRN ORAL Mild Pain (Pain Scale 1-3) 04/28/19 01:45 05/28/19 01:44 Amlodipine Besylate (Norvasc) 10 mg DAILY ORAL 04/28/19 09:00 05/28/19 08:59 05/01/19 09:54 Apixaban (Eliquis) 2.5 mg BID ORAL 04/28/19 09:00 05/28/19 08:59 05/01/19 09:55 Carvedilol (Coreg) 12.5 mg EVERY 12 HOURS ORAL 04/30/19 21:00 05/28/19 08:59 05/01/19 09:55 Dextrose (Dextrose 50%) 25 ml Q30M PRN IV Hypoglycemia 04/28/19 01:45 05/28/19 01:44 Dextrose (Dextrose 50%) 50 ml Q30M PRN IV Hypoglycemia 04/28/19 01:45 05/28/19 01:44 Famotidine (Pepcid) 20 mg DAILY ORAL 04/28/19 09:00 05/28/19 08:59 05/01/19 09:55 Furosemide (Lasix) 40 mg Q8HR ORAL 04/30/19 10:15 05/30/19 10:14 05/01/19 05:59 Insulin Aspart (NovoLOG) BEFORE MEALS AND HS SUBQ 04/28/19 06:30 05/28/19 06:29 05/01/19 06:00 Insulin Detemir (Levemir) 13 units Q24H SUBQ 04/28/19 21:00 05/28/19 20:59 04/30/19 21:04 Nitroglycerin (Ntg) 0.4 mg Q5M PRN SL Prn Chest Pain 04/28/19 01:45 05/28/19 01:44 Ondansetron HCl (Zofran) 4 mg Q6H PRN IVP Nausea & Vomiting 04/28/19 01:45 05/28/19 01:44 Regadenoson (Lexiscan) 0.4 mg ONCE PRN IV STRESS TEST 04/29/19 09:30 05/01/19 23:59 04/30/19 11:44 Jose Luis Steven MD May 01, 2019 11:44
[2019-05-01 11:58] VITALS: BP 141/61
--- NOTE | 2019-05-03 12:06 | Discharge Summary ---
Discharge Summary Discharge Summary _ DATE OF ADMISSION: 04/28/2019 DATE OF DISCHARGE: 05/01/2019 DISCHARGED BY: Dr. Tio Esquivel CONSULTANTS: Dr. Cameron Domingo BRIEF HOSPITAL COURSE: Patient is an 83-year-old female, who was admitted for evaluation of shortness of breath. She has history of chronic kidney disease. Baseline creatinine 1.8- 2.1. She is on diabetes and high blood pressure medications along with Eliquis for history of DVT. She presented for further evaluation and care of chest pressure with shortness of breath that has been ongoing for the past 3 days. On evaluation at the ED, blood pressure was 156/76, heart rate 61. Blood work did not show any leukocytes. H&H were stable. proBNP was 8455. Troponin was negative. Chest x-ray showed moderate to large left pleural effusion. Generalized interstitial congestion. She was given Lasix. She was admitted for evaluation and chest pain. Cardiac enzymes were monitored. Blood glucose monitored. She was given insulin sliding scale. She was continued Eliquis. She was given GI prophylaxis with Pepcid. She was continued on IV diuresis. Balance Bridge Inspector and cello teacher consulted. Echocardiogram showed normal left ventricular size, function and wall motion. EF 60%. She underwent a Lexiscan stress test. Results were negative. No need for thoracentesis per national coverage specialist. Patient was cleared for discharge home. 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 DISCHARGE INSTRUCTIONS: Follow-up in a week. I have been assigned to complete a discharge summary on this account, I was not involved with the patient's management.--VASQUEZ Downey Jacqueline Robles NP May 03, 2019 12:06
== END 2019-05-01 15:33 | disposition home or self-care (01) | DRG 469 ==
LOC: EMR 23:00 → 2E 04-28 00:24 → EDBEDREQ 04-28 01:49 → 2E 04-28 14:59
DX: N17.9 Acute kidney failure, unspecified (principal); N18.4 Chronic kidney disease, stage 4 (severe); I50.33 Acute on chronic diastolic (congestive) heart failure; I13.0 Hypertensive heart and chronic kidney disease with heart failure and stage 1 through stage 4 chronic kidney disease, or unspecified chronic kidney disease; Z86.718 Personal history of other venous thrombosis and embolism; Z79.01 Long term (current) use of anticoagulants; I25.10 Atherosclerotic heart disease of native coronary artery without angina pectoris; E11.22 Type 2 diabetes mellitus with diabetic chronic kidney disease; I24.9 Acute ischemic heart disease, unspecified; Z79.4 Long term (current) use of insulin; D64.9 Anemia, unspecified
CPT/HCPCS: 36415; 71045; 78452; 80048; 80053; 82962; 83880; 84484; 85025; 85610; 85730; 93005; 93017; 93306; 96374; 99285; J1815; J2785; S5561

== ENCOUNTER 2019-11-09 19:26 | Emergency (ER) | payer MEDICARE, OTHER ==
[~2019-11-09] VITALS: Ht 154.9 cm; Wt 64.9 kg
[~2019-11-09 19:26] MED LIST changes: +CALCITRIOL0.25 MCG PO; +FENOFIBRATE160 MG ORAL; +GABAPENTIN300 MG ORAL; +HYDRALAZINE HCL50 MG ORAL; +TORSEMIDE20 MG ORAL; +VITAMIN D250000 UNI1 ORAL
--- NOTE | 2019-11-09 19:40 | NUR ---
ED Nurse Note: pt c/o headache x3 days with n/v. denies fever or any other symptoms. aaox4, ambulatory, bp 173/80 at bedside. face is symmetrical, fermentation engineer strength +5, does not present with facial drooping. pt on monitor and gown. ERMD at bedside.
[2019-11-09] MEDS ORDERED: NIFEDIPINE ER60 M2 ORAL (19:55)
[2019-11-09 20:00] VITALS: BP 173/81
--- NOTE | 2019-11-09 20:00 | NUR ---
ED Nurse Note: blood collected and sent to lab
--- NOTE | 2019-11-09 20:10 | NUR ---
ED Nurse Note: urine collected and sent to lab
--- NOTE | 2019-11-09 20:20 | NUR ---
ED Nurse Note: pt went for ct
[2019-11-09 20:24] LABS: EOSINOPHILS % (AUTO) 2.3 % (0.0-3.0); HEMATOCRIT 25.6 % (37.0-47.0); HEMOGLOBIN 8.1 G/DL (12.0-16.0); LYMPHOCYTES % (AUTO) 22.1 % (20.0-45.0); MEAN CORPUSCULAR VOLUME 91 FL (80-99); MONOCYTES % (AUTO) 9.6 % (1.0-10.0); PLATELET COUNT 211 K/UL (150-450); RED BLOOD COUNT 2.81 M/UL (4.20-5.40); RED CELL DISTRIBUTION WIDTH 13.4 % (11.6-14.8); WHITE BLOOD COUNT 4.9 K/UL (4.8-10.8)
[2019-11-09 20:26] LABS: ANION GAP 8 mmol/L (5-15); BLOOD UREA NITROGEN 62 mg/dL (7-18); CALCIUM 8.1 MG/DL (8.5-10.1); CARBON DIOXIDE 27 MMOL/L (21-32); CHLORIDE 101 MMOL/L (98-107); POTASSIUM 4.7 MMOL/L (3.5-5.1); SODIUM 136 MMOL/L (136-145)
[2019-11-09 20:31] LABS: ALANINE AMINOTRANSFERASE 23 U/L (12-78); ALBUMIN 2.6 G/DL (3.4-5.0); ALBUMIN/GLOBULIN RATIO 0.8 (1.0-2.7); ALKALINE PHOSPHATASE 29 U/L (46-116); ASPARTATE AMINO TRANSFERASE 14 U/L (15-37); BILIRUBIN,TOTAL 0.3 MG/DL (0.2-1.0)
[2019-11-09 20:32] LABS: INR 1.2 (0.9-1.1)
[2019-11-09 20:33] LABS: BILIRUBIN, URINE NEGATIVE (NEGATIVE); COLOR,URINE PALE YELLOW; GLUCOSE, URINE (UA) NEGATIVE (NEGATIVE); KETONES,URINE NEGATIVE (NEGATIVE); LEUKOCYTE ESTERASE ,URINE 1+ (NEGATIVE); NITRITE,URINE NEGATIVE (NEGATIVE); PH,URINE 6.5 (4.5-8.0); PROTEIN,URINE 3+ (NEGATIVE); UROBILINOGEN,URINE NORMAL MG/DL (0.0-1.0)
[2019-11-09 20:35] LABS: APPEARANCE,URINE SLIGHTLY CLOUDY
--- NOTE | 2019-11-09 20:38 | NUR ---
ED Nurse Note: pt back from ct
--- NOTE | 2019-11-09 20:39 | Diagnostic Imaging Report ---
EXAM: CT Head Without Intravenous Contrast CLINICAL HISTORY: AMS TECHNIQUE: Axial computed tomography images of the head/brain without intravenous contrast. CTDI is 53 mGy and DLP is 1034 mGy-cm. One or more of the following dose reduction techniques were used: automated exposure control, adjustment of the mA and/or kV according to patient size, use of iterative reconstruction technique. 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 Parenchymal volume loss. Nonspecific white matter hypoattenuation likely secondary to chronic microvascular ischemia. Cerebrovascular ASVD. Benign unchanged likely clinically insignificant bilateral basal ganglia calcifications. No hemorrhage. Ventricles: Unremarkable. No ventriculomegaly. Bones/joints: Unremarkable. No acute fracture. Soft tissues: Unremarkable. Sinuses: Unremarkable as visualized. No acute sinusitis. Mastoid air cells: Small right mastoid air cell effusion. Other findings: Otherwise unremarkable study. IMPRESSION: 1. No acute intracranial abnormality. 2. 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 3. Consider MRI brain without and with IV contrast to further characterize suprasellar mass if this has not already been performed. 4. Small right mastoid air cell effusion. 5. Mild chronic senescent findings above. 6. Otherwise unremarkable study.
[2019-11-09] MEDS ORDERED: cefTRIAXone 1 GM in NS 55 ML IVPB ONE (21:45)
[2019-11-09 22:00] VITALS: BP 168/78
[2019-11-09] MEDS ORDERED: CEPHALEXIN500 MG ORAL (22:16)
[2019-11-09 22:22] VITALS: BP 168/78
--- NOTE | 2019-11-09 22:22 | NUR ---
Note [facility] in ED - 11/09/19 at 2236 by [facility] DISCHARGE NOTE: Patient is cleared to be discharged per ERMD, pt is aox4, on room air, with stable vital signs. pt was given dc and prescription instructions, pt was able to verbalize understanding, pt id band and iv site removed without complications. pt is able to ambulate with steady gait. pt took all belongings.
--- NOTE | 2019-11-10 16:02 | Emergency Room Report ---
History of Present Illness General Chief Complaint: Headache Source: Patient Present Illness HPI Patient is an 84-year-old male brought in by self after increased headache. Patient reports of increased difficulty with urination. Has been having headache for several days. Denies any vomiting or diarrhea. No neck stiffness. Denies any cough. reports having some right-sided abdominal pain. 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 COVID-19 Screening: Negative COVID-19 COVID-19 Testing Source: [facility] Patient History Past Medical History: see triage record Now: No Reviewed Nursing Documentation: PMH: Agreed; PSxH: Agreed Nursing Documentation-PMH Hx Cardiac Problems: Yes - CHF Hx Hypertension: Yes - osteoarthritis, anemia Hx Diabetes: Yes Hx Cancer: No Hx Gastrointestinal Problems: Yes - gerd 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 Hx Transient Ischemic Attacks: Yes Review of Systems All Other Systems: negative except mentioned in HPI Physical Exam Vital Signs Date Time Temp Pulse Resp B/P (MAP) Pulse Ox O2 Delivery O2 Flow Rate FiO2 11/09/19 19:39 98.1 77 18 184/70 (108) 95 Room Air Sp02 EP Interpretation: reviewed, normal General Appearance: normal inspection, well appearing, no apparent distress, alert, GCS 15 Head: atraumatic ENT: normal ENT inspection, hearing grossly normal, normal voice Neck: normal inspection, full range of motion, supple, no bony tend Respiratory: normal inspection, lungs clear, normal breath sounds, no respiratory distress, no retraction, no wheezing Cardiovascular #1: regular rate, rhythm, no edema Gastrointestinal: normal inspection, normal bowel sounds, non tender, soft, no guarding, no hernia Genitourinary: no CVA tenderness Musculoskeletal: normal inspection, back normal, normal range of motion Neurologic: alert, responsive, speech normal, normal inspection Psychiatric: normal inspection, judgement/insight normal, mood/affect normal Medical Decision Making Diagnostic Impression: Primary Impression: UTI (urinary tract infection) Additional Impression: Suprasellar mass ER Course Patient presented for headache. Differential diagnosis includes not limited to aneurysm, CVA, urinary infection, meningitis among others. Because of complexity of patient's case laboratory tests and imaging studies were ordered. Patient had no evidence of meningeal signs. Patient has good range of motion of her neck. She appears to have normal mental status. Patient's urine does appear to have some evidence of urinary infection and patient was given IV antibiotics. Patient was given prescription for Keflex. He was given medications for headache with improvement. Patient has known prior history of suprasellar mass. Patient was advised of CT findings. Patient states she felt better and wanted to go home. Patient was given prescription for antibiotics and was advised to follow-up with her primary care physician for recheck. She is advised to return if worse. This medical record is generated with [employer] police crime scene technician software. There may be some police crime scene technician discrepancies related to use of this software Labs Test 11/09/19 19:58 11/09/19 20:20 White Blood Count 4.9 K/UL (4.8-10.8) Red Blood Count 2.81 M/UL (4.20-5.40) Hemoglobin 8.1 G/DL (12.0-16.0) Hematocrit 25.6 % (37.0-47.0) Mean Corpuscular Volume 91 FL (80-99) Mean Corpuscular Hemoglobin 28.7 PG (27.0-31.0) Mean Corpuscular Hemoglobin Concent 31.5 G/DL (32.0-36.0) Red Cell Distribution Width 13.4 % (11.6-14.8) Platelet Count 211 K/UL (150-450) Mean Platelet Volume 8.7 FL (6.5-10.1) Neutrophils (%) (Auto) 64.0 % (45.0-75.0) Lymphocytes (%) (Auto) 22.1 % (20.0-45.0) Monocytes (%) (Auto) 9.6 % (1.0-10.0) Eosinophils (%) (Auto) 2.3 % (0.0-3.0) Basophils (%) (Auto) 2.0 % (0.0-2.0) Prothrombin Time 12.8 SEC (9.30-11.50) Prothromb Time International Ratio 1.2 (0.9-1.1) Activated Partial Thromboplast Time 29 SEC (23-33) Sodium Level 136 MMOL/L (136-145) Potassium Level 4.7 MMOL/L (3.5-5.1) Chloride Level 101 MMOL/L (98-107) Carbon Dioxide Level 27 MMOL/L (21-32) Anion Gap 8 mmol/L (5-15) Blood Urea Nitrogen 62 mg/dL (7-18) Creatinine 3.0 MG/DL (0.55-1.30) Estimat Glomerular Filtration Rate 14.8 mL/min (>60) Glucose Level 172 MG/DL (74-106) Calcium Level 8.1 MG/DL (8.5-10.1) Total Bilirubin 0.3 MG/DL (0.2-1.0) Aspartate Amino Transf (AST/SGOT) 14 U/L (15-37) Alanine Aminotransferase (ALT/SGPT) 23 U/L (12-78) Alkaline Phosphatase 29 U/L (46-116) Troponin I 0.052 ng/mL (0.000-0.056) Total Protein 6.0 G/DL (6.4-8.2) Albumin 2.6 G/DL (3.4-5.0) Globulin 3.4 g/dL Albumin/Globulin Ratio 0.8 (1.0-2.7) Urine Color Pale yellow Urine Appearance Slightly cloudy Urine pH 6.5 (4.5-8.0) Urine Specific Dodson 1.010 (1.005-1.035) Urine Protein 3+ (NEGATIVE) Urine Glucose (UA) Negative (NEGATIVE) Urine Ketones Negative (NEGATIVE) Urine Blood 1+ (NEGATIVE) Urine Nitrite Negative (NEGATIVE) Urine Bilirubin Negative (NEGATIVE) Urine Urobilinogen Normal MG/DL (0.0-1.0) Urine Leukocyte Esterase 1+ (NEGATIVE) Urine RBC 0-2 /HPF (0 - 2) Urine WBC 10-15 /HPF (0 - 2) Urine Squamous Epithelial Cells Moderate /LPF (NONE/OCC) Urine Bacteria Few /HPF (NONE) Last Vital Signs Date Time Temp Pulse Resp B/P (MAP) Pulse Ox O2 Delivery O2 Flow Rate FiO2 11/09/19 22:22 98.6 78 18 168/78 98 Room Air Status: improved Disposition: HOME, SELF-CARE Condition: Stable Scripts Cephalexin* (KEFLEX*) 500 Mg Capsule 500 MG ORAL EVERY 6 HOURS, #28 CAP Prov: Jai Richards MD 11/09/19 Referrals: [facility],REFERRING (PCP) Patient Instructions: Urinary Tract Infection Jai Richards MD Nov 10, 2019 16:02
== END 2019-11-09 22:22 | disposition home or self-care (01) ==
LOC: EMR 20:49
DX: G93.89 Other specified disorders of brain (principal); N39.0 Urinary tract infection, site not specified; Z88.6 Allergy status to analgesic agent; I11.0 Hypertensive heart disease with heart failure; I50.9 Heart failure, unspecified; M19.90 Unspecified osteoarthritis, unspecified site; E11.9 Type 2 diabetes mellitus without complications; K21.9 Gastro-esophageal reflux disease without esophagitis; Z86.73 Personal history of transient ischemic attack (TIA), and cerebral infarction without residual deficits; R10.9 Unspecified abdominal pain
CPT/HCPCS: 36415; 70450; 80053; 81003; 84484; 85025; 85610; 85730; 87086; 96365; 99284; J0696; J7040

== ENCOUNTER 2019-12-04 20:58 | Inpatient (IN) | payer MEDICARE, OTHER ==
[~2019-12-04] VITALS: Ht 162.6 cm; Wt 74.8 kg
[~2019-12-04 20:58] MED LIST changes: +NIFEDIPINE ER60 M2 ORAL
[2019-12-04] MEDS ORDERED: Acetaminophen 500mg (ES) tab PO ONE (21:45)
--- NOTE | 2019-12-04 21:50 | Emergency Room Report ---
History of Present Illness General Chief Complaint: General Complaint Source: Patient Present Illness HPI Patient presents with intermittent lumbar pain for 2 weeks. She says it comes on and is severe and then goes away on its own. She is tried taking Tylenol with some relief. She is not sure what the causes. She has had a urinary tract infection in the past but denies dysuria at this time. She also denies any change in her bowels. The patient was seen at another hospital and discharged. She was called today recommending that she come to the hospital for blood transfusions. The patient denies dyspnea, chest pain. She has been feeling weak which is developed over a longer period of time. No fevers, chills, sore throat, palpitations, nausea, vomiting, diarrhea, abdominal pain, shortness of breath, rashes, visual changes, dizziness, headache. Treated 11/09/2019 for UTI. Suprasellar mass noted. Admitted 04/2019. 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 Patient History Past Medical History: see triage record, old chart reviewed Social History: Denies: smoking, alcohol use, drug use Social History Narrative from home Reviewed Nursing Documentation: PMH: Agreed; PSxH: Agreed Nursing Documentation-PMH Hx Cardiac Problems: Yes - CHF Hx Hypertension: Yes - osteoarthritis, anemia Hx Diabetes: Yes Hx Cancer: No Hx Gastrointestinal Problems: Yes - gerd 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 Hx Transient Ischemic Attacks: Yes Review of Systems All Other Systems: negative except mentioned in HPI Physical Exam Vital Signs Date Time Temp Pulse Resp B/P (MAP) Pulse Ox O2 Delivery O2 Flow Rate FiO2 12/04/19 21:08 99.0 66 16 155/64 (94) 96 Room Air Sp02 EP Interpretation: reviewed, normal General Appearance: no apparent distress, alert, non-toxic, other Head: normocephalic Eyes: bilateral eye normal inspection, bilateral eye PERRL, bilateral eye EOMI ENT: moist mucus membranes Neck: supple Respiratory: normal inspection, no respiratory distress Cardiovascular #1: regular rate, rhythm, no edema, JVD - 30 degrees Cardiovascular #2: 2+ radial (L) Gastrointestinal: normal inspection, normal bowel sounds, non tender, no mass, non-distended Genitourinary: no CVA tenderness Musculoskeletal: normal range of motion, gait/station normal, other - lumbar tenderness, also bilat hip discomfort without crepetance, PROM of legs without pain in hips Neurologic: alert, oriented x3, grossly normal, other - hard of hearing Psychiatric: mood/affect normal Skin: no rash, warm/dry, pallor - Minimal Medical Decision Making Diagnostic Impression: Primary Impression: Acute on chronic renal failure Qualified Codes: N17.9 - Acute kidney failure, unspecified; N18.4 - Chronic kidney disease, stage 4 (severe) Additional Impressions: Lumbar compression fracture Qualified Codes: S32.000D - Wedge compression fracture of unspecified lumbar vertebra, subsequent encounter for fracture with routine healing Anemia Qualified Codes: D64.9 - Anemia, unspecified Elevated brain natriuretic peptide (BNP) level Compensated congestive heart failure ER Course Patient presents with intermittent lumbar pain for several days. In addition she is stating that she was informed that she needed needed blood transfusion for anemia. Differential includes lumbar spine fracture, muscle spasm, urinary tract infection, aortic aneurysm amongst others. Hemodynamically the patient is stable. However we need to exclude cardiac disease. Evaluation with EKG, chest x-ray, lumbar sacral spine CT, abdomen pelvis CT, labs. Patient's pain treated with Tylenol. EKG with right bundle branch block and left axis deviation. CT abdomen no acute pathology. CT lumbar spine compression fractures. Labs significant for acute renal failure worsened from a year ago. BNP is elevated. Although patient has an elevated BNP there is no overt signs of dyspnea or hypoxia. She has a history of CHF. Clinically she appears to have compensated. Chest x-ray was ordered and does not reveal pulmonary edema. The patient does have cardiomegaly. Holding off on giving diuretics as there is evidence of acute kidney injury at this time. Consideration for addition of nitrates. Blood pressures mildly elevated. The patient does have anemia. Considerations for transfusion however this is not emergently indicated. Type and Rh was performed. This patient is extremely complex with multiple comorbidities. Due to possibility for transfer, Rapid COVID testing performed. Patient signed out to Dr. Ferguson for discussion with HMO. Laboratory Tests Test 12/04/19 21:50 White Blood Count 4.8 K/UL (4.8-10.8) Red Blood Count 2.41 M/UL (4.20-5.40) L Hemoglobin 7.1 G/DL (12.0-16.0) L Hematocrit 21.8 % (37.0-47.0) L Mean Corpuscular Volume 90 FL (80-99) Mean Corpuscular Hemoglobin 29.2 PG (27.0-31.0) Mean Corpuscular Hemoglobin Concent 32.4 G/DL (32.0-36.0) Red Cell Distribution Width 14.3 % (11.6-14.8) Platelet Count 181 K/UL (150-450) Mean Platelet Volume 8.5 FL (6.5-10.1) Neutrophils (%) (Auto) % (45.0-75.0) Lymphocytes (%) (Auto) % (20.0-45.0) Monocytes (%) (Auto) % (1.0-10.0) Eosinophils (%) (Auto) % (0.0-3.0) Basophils (%) (Auto) % (0.0-2.0) Differential Total Cells Counted 100 Neutrophils % (Manual) 65 % (45-75) Lymphocytes % (Manual) 31 % (20-45) Monocytes % (Manual) 4 % (1-10) Eosinophils % (Manual) 0 % (0-3) Basophils % (Manual) 0 % (0-2) Band Neutrophils 0 % (0-8) Platelet Estimate Adequate Platelet Morphology Normal Hypochromasia 1+ Erythrocyte Sedimentation Rate 55 MM/HR (0-30) H Prothrombin Time 11.8 SEC (9.30-11.50) H Prothrombin Time INR 1.1 (0.9-1.1) Activated Partial Thromboplast Time 27 SEC (23-33) Urine Color Pale yellow Urine Appearance Clear Urine pH 6 (4.5-8.0) Urine Specific [place] 1.005 (1.005-1.035) Urine Protein 3+ (NEGATIVE) H Urine Glucose (UA) Negative (NEGATIVE) Urine Ketones Negative (NEGATIVE) Urine Blood Negative (NEGATIVE) Urine Nitrite Negative (NEGATIVE) Urine Bilirubin Negative (NEGATIVE) Urine Urobilinogen Normal MG/DL (0.0-1.0) Urine Leukocyte Esterase 2+ (NEGATIVE) H Urine RBC 0-2 /HPF (0 - 2) Urine WBC 2-4 /HPF (0 - 2) Urine Squamous Epithelial Cells Few /LPF (NONE/OCC) Urine Bacteria Few /HPF (NONE) Sodium Level 142 MMOL/L (136-145) Potassium Level 4.6 MMOL/L (3.5-5.1) Chloride Level 106 MMOL/L (98-107) Carbon Dioxide Level 27 MMOL/L (21-32) Anion Gap 10 mmol/L (5-15) Blood Urea Nitrogen 86 mg/dL (7-18) H Creatinine 3.7 MG/DL (0.55-1.30) H Estimated Glomerular Filtration Rate 11.6 mL/min (>60) Glucose Level 84 MG/DL (74-106) Calcium Level 7.7 MG/DL (8.5-10.1) L Total Bilirubin 0.2 MG/DL (0.2-1.0) Aspartate Amino Transferase (AST) 20 U/L (15-37) Alanine Aminotransferase (ALT) < 6 U/L (12-78) L Alkaline Phosphatase 27 U/L (46-116) L Troponin I 0.046 ng/mL (0.000-0.056) C-Reactive Protein, Quantitative < 0.4 mg/dL (0.00-0.90) Pro-B-Type Natriuretic Peptide 11179 pg/mL (0-125) H Total Protein 5.8 G/DL (6.4-8.2) L Albumin 2.6 G/DL (3.4-5.0) L Globulin 3.2 g/dL Albumin/Globulin Ratio 0.8 (1.0-2.7) L Lipase 201 U/L (73-393) EKG Diagnostic Results Rate: normal Rhythm: NSR ST Segments: no acute changes - RBBB LAD Rhythm Strip Diag. Results EP Interpretation: yes Rhythm: NSR, no PVC's, no ectopy Chest X-Ray Diagnostic Results Chest X-Ray Diagnostic Results : Chest X-Ray Ordered: Yes # of Views/Limited/Complete: 1 View Indication: Other EP Interpretation: Yes Interpretation: no effusion, no pneumothorax, other - cardiomegally and some reversal flow (no obvious CHF) CT/MRI/US Diagnostic Results CT/MRI/US Diagnostic Results #1: Imaging Test Ordered: LS spine Impression 1. For abdominal and pelvic findings, please see dedicated imaging report from the same date. 2. No acute traumatic injury. 3. Osteopenia and multilevel age-related degenerative spine findings limit evaluation for small and nondisplaced fractures. 4. If there is continued concern for occult fracture or acute neurologic, recommend MRI. 5. At least moderate severity spinal canal stenosis L3-L4 and L4-L5 due to disc bulge, mild facet arthropathy, ligamentum flavum hypertrophy. Correlate with presentation and exam. 6. Unchanged mild inferior endplate L3 and moderate superior endplate L2 compression fractures. CT/MRI/US Diagnostic Results #2: Imaging Test Ordered: abdomen/pelvis Impression 1. L2 likely nonacute compression fracture, uncertain chronicity. Correlate with exam to exclude acute component. 2. Segmental colonic wall thickening as above could represent colitis or nondistention. Correlate with nonemergent colonoscopy to exclude infiltrative neoplasm. 3. Large colonic fecal burden and small bowel fecal contents, which could be incidental or could represent a manifestation of slow intestinal transit. This could be a cause for pain. 4. Urinary bladder wall thickening, correlate to exclude infectious or inflammatory cystitis. Last Vital Signs Date Time Temp Pulse Resp B/P (MAP) Pulse Ox O2 Delivery O2 Flow Rate FiO2 12/05/19 01:55 97.9 68 18 143/58 (86) 95 12/05/19 01:30 Room Air 99 Status: improved Disposition: ADMITTED INPATIENT Condition: Serious Referrals: NON PHYSICIAN (PCP) Parker Doshi MD Dec 04, 2019 21:50
[2019-12-04 22:05] VITALS: BP 147/74
[2019-12-04 22:06] LABS: APPEARANCE,URINE CLEAR; BILIRUBIN, URINE NEGATIVE (NEGATIVE); COLOR,URINE PALE YELLOW; GLUCOSE, URINE (UA) NEGATIVE (NEGATIVE); KETONES,URINE NEGATIVE (NEGATIVE); LEUKOCYTE ESTERASE ,URINE 2+ (NEGATIVE); NITRITE,URINE NEGATIVE (NEGATIVE); PH,URINE 6 (4.5-8.0); PROTEIN,URINE 3+ (NEGATIVE); UROBILINOGEN,URINE NORMAL MG/DL (0.0-1.0)
[2019-12-04 22:10] LABS: HEMATOCRIT 21.8 % (37.0-47.0); HEMOGLOBIN 7.1 G/DL (12.0-16.0); MEAN CORPUSCULAR VOLUME 90 FL (80-99); PLATELET COUNT 181 K/UL (150-450); RED BLOOD COUNT 2.41 M/UL (4.20-5.40); RED CELL DISTRIBUTION WIDTH 14.3 % (11.6-14.8); WHITE BLOOD COUNT 4.8 K/UL (4.8-10.8)
[2019-12-04 22:17] LABS: INR 1.1 (0.9-1.1)
[2019-12-04 22:21] LABS: ANION GAP 10 mmol/L (5-15); BLOOD UREA NITROGEN 86 mg/dL (7-18); CALCIUM 7.7 MG/DL (8.5-10.1); CARBON DIOXIDE 27 MMOL/L (21-32); CHLORIDE 106 MMOL/L (98-107); CREATININE 3.7 MG/DL (0.55-1.30); POTASSIUM 4.6 MMOL/L (3.5-5.1); SODIUM 142 MMOL/L (136-145)
--- NOTE | 2019-12-04 22:30 | Diagnostic Imaging Report ---
EXAM: CT Abdomen and Pelvis Without Intravenous Contrast CLINICAL HISTORY: BK PAIN TECHNIQUE: Axial computed tomography images of the abdomen and pelvis without intravenous contrast. CTDI is 6 mGy and DLP is 297 mGy-cm. One or more of the following dose reduction techniques were used: automated exposure control, adjustment of the mA and/or kV according to patient size, use of iterative reconstruction technique. Coronal and sagittal reformatted images were created and reviewed. COMPARISON: 10/27/17 FINDINGS: Lung bases: Unremarkable. No mass. No consolidation. Heart: Cardiomegaly and small pericardial effusion. Mediastinum: Distal esophageal wall thickening. Correlate for esophagitis. ABDOMEN: Liver: Old granulomatous disease in the liver. Otherwise unremarkable liver. Gallbladder and bile ducts: Cholelithiasis without findings to suggest acute cholecystitis. No ductal dilation. Pancreas: Unremarkable. No ductal dilation. Spleen: Unremarkable. No splenomegaly. Adrenals: Unremarkable. No mass. Kidneys and ureters: Unremarkable. No obstructing stones. No hydronephrosis. Stomach and bowel: Large colonic fecal burden and small bowel fecal contents, which could be incidental or could represent a manifestation of slow intestinal transit. This could be a cause for pain. Segmental colonic wall thickening most pronounced in the sigmoid colon and rectum could represent an infectious or inflammatory colitis, although nondistention could also have this appearance. Correlate with nonemergent colonoscopy to exclude infiltrative neoplasm. PELVIS: Appendix: No findings to suggest acute appendicitis. Bladder: Urinary bladder wall thickening, correlate to exclude infectious or inflammatory cystitis. No stones. Reproductive: Unremarkable as visualized. ABDOMEN and PELVIS: Intraperitoneal space: Unremarkable. No free air. No significant fluid collection. Bones/joints: Severe osteopenia. Chronic right superior and inferior pubic ramus fractures. L2 compression fracture of uncertain chronicity, no specific findings identified to suggest acute injury. Correlate with exam. No dislocation. Soft tissues: Unremarkable. Vasculature: Atherosclerotic vascular disease. No abdominal aortic aneurysm. Lymph nodes: Unremarkable. No enlarged lymph nodes. IMPRESSION: 1. L2 likely nonacute compression fracture, uncertain chronicity. Correlate with exam to exclude acute component. 2. Segmental colonic wall thickening as above could represent colitis or nondistention. Correlate with nonemergent colonoscopy to exclude infiltrative neoplasm. 3. Large colonic fecal burden and small bowel fecal contents, which could be incidental or could represent a manifestation of slow intestinal transit. This could be a cause for pain. 4. Urinary bladder wall thickening, correlate to exclude infectious or inflammatory cystitis. 5. Additional chronic and benign findings above.
[2019-12-04 22:34] LABS: ALBUMIN 2.6 G/DL (3.4-5.0); ALBUMIN/GLOBULIN RATIO 0.8 (1.0-2.7); ALKALINE PHOSPHATASE 27 U/L (46-116); ASPARTATE AMINO TRANSFERASE 20 U/L (15-37); BILIRUBIN,TOTAL 0.2 MG/DL (0.2-1.0)
[2019-12-04 22:37] LABS: ALANINE AMINOTRANSFERASE < 6 U/L (12-78)
--- NOTE | 2019-12-04 22:54 | Diagnostic Imaging Report ---
EXAM: CT Lumbar Spine Without Intravenous Contrast CLINICAL HISTORY: BK PAIN TECHNIQUE: Axial computed tomography images of the lumbar spine without intravenous contrast. CTDI is 6 mGy and DLP is 297 mGy-cm. One or more of the following dose reduction techniques were used: automated exposure control, adjustment of the mA and/or kV according to patient size, use of iterative reconstruction technique. Coronal and sagittal reformatted images were created and reviewed. Axial reformatted images were created and reviewed. COMPARISON: 10/27/17 FINDINGS: Vertebrae: Osteopenia and multilevel age-related degenerative spine findings limit evaluation for small and nondisplaced fractures. Unchanged mild inferior endplate L3 and moderate superior endplate L2 compression fractures. Discs/spinal canal/neural foramina: At least moderate severity spinal canal stenosis L3-L4 and L4-L5 due to disc bulge, mild facet arthropathy, ligamentum flavum hypertrophy. Correlate with presentation and exam. Soft tissues: Unremarkable. Other findings: For abdominal and pelvic findings, please see dedicated imaging report from the same date. IMPRESSION: 1. For abdominal and pelvic findings, please see dedicated imaging report from the same date. 2. No acute traumatic injury. 3. Osteopenia and multilevel age-related degenerative spine findings limit evaluation for small and nondisplaced fractures. 4. If there is continued concern for occult fracture or acute neurologic, recommend MRI. 5. At least moderate severity spinal canal stenosis L3-L4 and L4-L5 due to disc bulge, mild facet arthropathy, ligamentum flavum hypertrophy. Correlate with presentation and exam. 6. Unchanged mild inferior endplate L3 and moderate superior endplate L2 compression fractures.
[2019-12-04 23:10] VITALS: BP 152/82
[2019-12-05] VITALS (7 sets, daily range): BP systolic 128–207; BP diastolic 44–91
--- NOTE | 2019-12-05 00:43 | Diagnostic Imaging Report ---
EXAM: XR Chest, 1 View CLINICAL HISTORY: PAIN TECHNIQUE: Frontal view of the chest. COMPARISON: 10/27/17 FINDINGS: Lungs: Unremarkable. No consolidation. Pleural space: Unremarkable. No pneumothorax. Heart: Cardiomegaly. Mediastinum: Unremarkable. Bones/joints: Unremarkable. IMPRESSION: 1. Cardiomegaly. 2. Otherwise no acute cardiopulmonary disease. 3. If there is continued concern recommend frontal and lateral chest radiographs or CT.
[2019-12-05] MEDS ORDERED: CARVEDILOL12.5 MG ORAL (01:30)
[2019-12-05] MEDS ORDERED: FERROUS SULFAT325 MG ORAL (01:30)
[2019-12-05] MEDS ORDERED: LIPITOR80 MG ORAL (01:30)
[2019-12-05] MEDS ORDERED: TORSEMIDE20 MG ORAL (01:30)
[2019-12-05] MEDS: NovoLOG Insulin Flexpen SUBQ SCH ×4 (06:30→21:33)
[2019-12-05] MEDS ORDERED: HydrALAZINE 50mg tab ORAL SCH (08:09)
[2019-12-05] MEDS: Magnesium Oxide 400mg tab ORAL SCH ×3 (08:18→18:31)
[2019-12-05] MEDS ORDERED: Carvedilol 12.5mg tab ORAL SCH (09:00)
[2019-12-05] MEDS ORDERED: Heparin 5000 units/ml inj SUBQ SCH (09:00)
[2019-12-05] MEDS: Eliquis 2.5mg tablet ORAL SCH ×2 (11:32→18:31)
[2019-12-05] MEDS: Labetalol 200mg tab ORAL SCH ×2 (14:06→20:34)
[2019-12-05 16:24] LABS: CREATININE 3.2 MG/DL (0.55-1.30)
--- NOTE | 2019-12-05 19:00 | Consultation ---
DATE OF CONSULTATION: 12/05/2019 CONSULTING PHYSICIAN: Shahid Cuevas MD. CHIEF COMPLAINT: Anemia. HISTORY OF PRESENT ILLNESS: This is a very pleasant 83-year-old female who was admitted to the hospital was found to be profoundly anemic, hemoglobin in the 7 ranges. So, GI consult requested for evaluation. Patient denies any significant abdominal pain. No nausea. No vomiting. No dysphagia. No odynophagia. Patient has some dark stools according to her, but she is taking iron. She does not recall if she ever had endoscopy and colonoscopy before. PAST MEDICAL HISTORY: 1. Chronic kidney disease stage 4. 2. Anemia, chronic. Baseline about 8. 3. Diabetes. 4. Hypertension. 5. History of coronary artery disease. 6. History of DVT. ALLERGIES: To codeine. FAMILY HISTORY: Noncontributory. SOCIAL HISTORY: Patient denies any tobacco, alcohol, or IV drug abuse. PAST SURGICAL HISTORY: Patient has a history of benign brain tumor, which has been removed in the past. MEDICATIONS: Please see medication reconciliation list. PHYSICAL EXAMINATION: VITAL SIGNS: Temperature is 97.8, pulse 60, respirations 20, blood pressure is 207/71. HEENT: Normocephalic, atraumatic. Pale conjunctivae. NECK: Supple. No evidence of obvious lymphadenopathy. CARDIOVASCULAR: Regular rate and rhythm. Plus S1 and S2. LUNGS: Clear to auscultation bilaterally. ABDOMEN: Positive bowel sounds. Soft and nontender. No rebound. No guarding. No peritoneal sign. EXTREMITIES: No cyanosis. No clubbing. No edema. LABORATORY DATA: White count is 4.8, hemoglobin 7.1, last hemoglobin on 11/09/2019 was 8.1, platelet count is 181. ASSESSMENT AND PLAN: This is an 84-year-old female with chronic renal disease, chronic anemia, baseline hemoglobin around 8 admitted to the hospital now hemoglobin 7.1. No active GI bleeding. Dark stool, possibly from the iron. Anemia most probably secondary to chronic disease and most probably renal disease. Plan to stop the iron. Send the stool for OB. Transfuse 1 unit of packed RBC given hemoglobin of 7. Start PPI daily. Consider GI procedures if needed. Shahid Marina Cuevas DR: SATURNINO JOB#: [id number] CC:
--- NOTE | 2019-12-05 19:30 | History and Physical Report ---
DATE OF ADMISSION: 12/05/2019 REASON FOR ADMISSION: Renal failure, congestive heart failure, anemia. HISTORY OF PRESENT ILLNESS: This is an 84-year-old female, very pleasant, currently cared for by outside physicians. The patient presents with intermittent lumbar pain. Patient did have a workup including x-ray of the chest showing cardiomegaly. CT of the abdomen showing L2 compression fracture and possible mild colitis, fecal impaction and spine CT confirming the above with osteopenia. The patient currently does complain of pain, but able to ambulate. 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 PAST MEDICAL HISTORY: Notable for chronic kidney disease, acute on chronic diastolic congestive heart failure, anemia, pulmonary edema in the past, hypertension, diabetes, history of DVT on Eliquis. MEDICATIONS: Reviewed. ALLERGIES: Reviewed. SOCIAL HISTORY: Lives with family. Nonsmoker and nondrinker. REVIEW OF SYSTEMS: All 10 points reviewed and otherwise negative. Patient is debilitated, kyphotic, able to ambulate, uses assistive device. The patient has no shortness of breath at present. No leg edema at present. PHYSICAL EXAMINATION: GENERAL: A well-developed female, no significant distress. Advanced age. VITAL SIGNS: Blood pressure significantly elevated up to 207/71, heart rate 63, respirations 20, saturations 100%, temperature 97.8. HEENT: Negative. Extraocular motions are grossly intact. NECK: Supple. LUNGS: Fairly good air entry. No rhonchi or wheezes. CARDIAC: S1, S2. Regular rate and rhythm. Positive S4. No murmurs. ABDOMEN: Soft, nontender. EXTREMITIES: No edema. Patient is kyphotic. No cyanosis. LABORATORY DATA: Reviewed. Hemoglobin 7.1. Chemistries noted. BUN 86, creatinine 3.7. BNP significantly elevated at 11,226. Albumin is 2.6. X-rays, notable cardiomegaly. IMPRESSION: Noted significant anemia, possible GI bleed versus anemia of chronic disease, chronic renal failure, possible fluid overload with significantly elevated natriuretic peptide, compression fracture with associated back pain, no recent history of fall, osteopenia, osteoporosis, hypertension, diabetes, DVT, per history. RECOMMENDATIONS: Supportive care. Resume home medications all reviewed. Patient will need a transfusion. Monitor for GI bleeding. Obtain GI evaluation. Cardiac evaluation. Renal evaluation. Follow up laboratories and assist with discharge planning. Abel Luna M.D. DR: KIARRA JOB#: [id number] CC:
--- NOTE | 2019-12-05 20:30 | Consultation ---
DATE OF CONSULTATION: 12/05/2019 NEPHROLOGY CONSULTATION CONSULTING PHYSICIAN: Leanna Grover M.D. ATTENDING PHYSICIAN: Abel Luna M.D. REASON FOR CONSULTATION: Elevated BUN, creatinine and malignant hypertension. HISTORY OF PRESENT ILLNESS: This is an 84-year-old female, who is apparently with history of advanced kidney failure due to diabetic nephropathy. The patient presented to the emergency department complaining of weakness due to advanced anemia, also most likely related to her advanced kidney failure. The patient was noted with elevated BUN, creatinine, very low hemoglobin. She has been currently transfused. I am asked to see the patient for all these problems. PAST MEDICAL HISTORY: 1. Type 2 diabetes mellitus. 2. 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 3. Diastolic heart failure. 4. Malignant hypertension. 5. History of DVT, on Eliquis. MEDICATIONS: Tylenol as needed, amlodipine, apixaban, atorvastatin, Coreg, ergocalciferol, fenofibrate, oral iron, gabapentin, subcutaneous heparin, hydralazine, insulin sliding scale, oral magnesium, nifedipine XL. ALLERGIES: To codeine. FAMILY HISTORY: Unremarkable. SOCIAL HISTORY: She lives at home. HABITS: She is a nonsmoker and nondrinker. There is no history of illicit drug abuse. REVIEW OF SYSTEMS: HEENT: Hearing normal. Eyesight diminished due to advanced diabetic retinopathy. CARDIAC: She denies chest pain, palpitations. RESPIRATORY: She denies shortness of breath, cough, or hemoptysis. GASTROINTESTINAL: No history of hematochezia, melena, hematemesis, diarrhea, or constipation. NEUROLOGIC: No history of stroke, syncope, or Parkinson's. PHYSICAL EXAMINATION: GENERAL: This is an elderly, chronically ill-appearing female, who is in no acute distress. VITAL SIGNS: Blood pressure is 207/71, pulse 63 and regular, respirations 20, temperature 97.8. HEENT: Head is normocephalic and atraumatic. Pupils are equal, round, and reactive to light and accommodation consensually. NECK: Supple. Trachea midline. There was no lymphadenopathy or thyromegaly. LUNGS: Clear to auscultation and percussion. HEART: Regular rate and rhythm without rubs, murmurs, or gallops. ABDOMEN: Soft and nontender. Bowel sounds were active. EXTREMITIES: No clubbing, cyanosis, or edema. NEUROLOGIC: She is alert and oriented x4. Cranial nerves II through XII intact. LABORATORY AND ANCILLARY DATA: Electrolytes within normal limits. BUN 86, creatinine 3.7. EGFR 11.6. Hematocrit 21.8. CT scan of the abdomen and pelvis with and without contrast in regards to the kidneys unremarkable, shows L2 compression fracture of uncertain chronicity. ASSESSMENT: 1. Her GFR probably is more advanced and suspected most likely CKD due to Diabetic Nephropathy between 4 to 5. 2. Type 2 diabetes mellitus. 3. 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 4. Diastolic heart failure. 5. Malignant hypertension. 6. History of DVT, on Eliquis. PLAN: 1. 24-hour urine collection for more accurate estimation of her GFR. 2. Better control of her blood pressure. 3. Erythropoietic stimulating agents. 4. IV iron. Thank you, Dr. Luna, for letting me to participate in the care of this patient. Leanna Grover M.D. DR: KENNETH JOB#: [id number] CC: PHILIP
[2019-12-05] MEDS: Minoxidil 2.5mg tab ORAL SCH (20:33)
[2019-12-05] MEDS: Atorvastatin 20mg tab ORAL SCH (20:34)
[2019-12-05] MEDS ORDERED: Epoetin Alfa-EPBX (NON ESRD)4000 units/ml vial SUBQ SCH (21:00)
[2019-12-06] VITALS: BP 151/50
--- NOTE | 2019-12-06 03:00 | Consultation ---
DATE OF CONSULTATION: 12/05/2019 CARDIOLOGY CONSULT CONSULTING PHYSICIAN: Parker Bennett MD. REQUESTING PHYSICIAN: Abel Luna MD. REASON FOR CONSULTATION: Evaluation for congestive heart failure. HISTORY OF PRESENT ILLNESS: This is an 84-year-old female, presented to the emergency room with back pain and was noted to have L2 compression fracture and fecal impaction. The patient has had increasing pain, but has been able to ambulate. She was noted to have abnormal laboratory studies including an elevated natriuretic peptide assay. I have been asked to assist with cardiovascular care. PAST MEDICAL HISTORY: Chronic kidney disease, hypertensive heart disease, congestive heart failure, anemia due to chronic kidney disease, hypertension, type 2 diabetes mellitus, history of DVT on anticoagulation. MEDICATIONS: Reviewed and reconciled. ALLERGIES: Include codeine. SOCIAL HISTORY: Negative for smoking, alcohol, or substance abuse. FAMILY HISTORY: Noncontributory. REVIEW OF SYSTEMS: No loss of hearing. Her vision is diminished due to retinopathy. She has not had any chest pain, palpitations, or leg swelling. She denies any cough or sputum production. There is no known history of COVID-19 exposure. She has not had any change in bowel habits. She is on oral therapy for diabetes. No known history of thyroid impairment. Her blood pressure has been difficult to control. She denies any history of stroke. PHYSICAL EXAMINATION: GENERAL: Ill-appearing female, in no acute distress. VITAL SIGNS: Blood pressure up to 207/71, heart rate 63, respiratory rate 20, and afebrile. HEENT: Conjunctivae pink. Oropharynx clear. NECK: Supple. Jugular venous pressure elevated. LUNGS: Clear. CARDIAC: Regular rhythm and rate. Normal S1, S2 with a fourth heart sound. No murmurs appreciated. ABDOMEN: Soft, nontender. EXTREMITIES: Without edema. LABORATORY AND DIAGNOSTIC DATA: BUN 86, creatinine 3.7. White count 4.8, hemoglobin 7.1. Potassium 4.6, sodium 142, bicarb 27, troponin 0.046. Pro-natriuretic peptide 11,200. Albumin 2.6. Chest x-ray is notable for cardiomegaly with no acute cardiopulmonary disease. IMPRESSION: 1. Back pain, compression fracture, acuity unclear. 2. Chronic diastolic congestive heart failure. 3. Chronic renal failure. 4. Malignant range hypertension. 5. History of DVT, on anticoagulation. 6. Type 2 diabetes mellitus with complications. PLAN: 1. Optimize antihypertensives. 2. Epogen and possible transfusion. 3. No diuretic therapy at this time. 4. Continue full anticoagulation with Eliquis at renal dosing. 5. Cautious use of gabapentin in setting of renal failure. 6. Check full lipid panel and reassess anti-lipid regimen. Parker Bennett M.D. DR: CARINA JOB#: [id number] CC:
[2019-12-06 04:00] VITALS: BP 150/50
[2019-12-06] MEDS: NovoLOG Insulin Flexpen SUBQ SCH ×4 (05:53→20:38)
--- NOTE | 2019-12-06 07:42 | General Progress Note ---
Assessment/Plan Assessment/Plan: 1. Chronic kidney disease stage 4. 2. Anemia, chronic. Baseline about 8. 3. Diabetes. 4. Hypertension. 5. History of coronary artery disease. 6. History of DVT. fu stool ob s/p one unit prbc fu H&H ppi gi procedures if needed Subjective ROS Limited/Unobtainable: Yes Allergies: Coded Allergies: CODEINE (Verified Allergy, Unknown, 11/09/19) Objective Last 24 Hour Vital Signs Date Time Temp Pulse Resp B/P (MAP) Pulse Ox O2 Delivery O2 Flow Rate FiO2 12/06/19 04:00 72 12/06/19 04:00 96.8 22 150/50 (83) 95 12/06/19 00:00 97.7 66 22 151/50 (83) 97 12/06/19 00:00 64 12/05/19 21:00 Room Air 12/05/19 20:34 68 128/44 12/05/19 20:33 128/44 12/05/19 20:00 68 12/05/19 20:00 98.4 67 18 128/44 (72) 99 12/05/19 16:00 67 12/05/19 16:00 96.8 69 19 145/46 (79) 98 12/05/19 14:06 76 188/69 12/05/19 12:00 99.1 73 20 180/73 (108) 96 12/05/19 12:00 75 12/05/19 11:45 63 207/71 12/05/19 11:31 73 206/58 12/05/19 09:00 Room Air 12/05/19 08:23 207/71 12/05/19 08:18 63 207/71 12/05/19 08:00 65 12/05/19 07:50 97.8 63 20 207/71 (116) 100 Intake and Output 12/05/19 12/06/19 19:00 07:00 # Bowel Movements 1 1 Laboratory Tests 12/05/19 10:05: Stool Occult Blood [Pending] 12/05/19 13:06: POC Whole Blood Glucose 228H 12/05/19 15:55: Creatinine 3.2H, Estimat Glomerular Filtration Rate 13.8 Height (Feet): 5 Height (Inches): 4.00 Weight (Pounds): 165 General Appearance: no apparent distress EENT: normal ENT inspection Neck: supple Cardiovascular: normal rate Respiratory/Chest: decreased breath sounds Abdomen: normal bowel sounds, non tender, soft Extremities: non-tender Shahid Cuevas MD Dec 06, 2019 07:42
[2019-12-06 08:00] VITALS: BP 181/59
--- NOTE | 2019-12-06 08:17 | General Progress Note ---
Assessment/Plan Assessment/Plan: IMPRESSION: Noted significant anemia, possible GI bleed versus anemia of chronic disease, chronic renal failure, possible fluid overload with significantly elevated natriuretic peptide, compression fracture with associated back pain, no recent history of fall, osteopenia, osteoporosis, hypertension, diabetes, DVT, per history. Headaches PLAN care noted awaiting labs head CT work up in progress monitor renal function and fluid status appreciate consultants will follow impression, plan, and exam edited and reviewed in detail care discussed with RN Subjective Allergies: Coded Allergies: CODEINE (Verified Allergy, Unknown, 11/09/19) Subjective noted headaches labs pending Objective Last 24 Hour Vital Signs Date Time Temp Pulse Resp B/P (MAP) Pulse Ox O2 Delivery O2 Flow Rate FiO2 12/06/19 04:00 72 12/06/19 04:00 96.8 22 150/50 (83) 95 12/06/19 00:00 97.7 66 22 151/50 (83) 97 12/06/19 00:00 64 12/05/19 21:00 Room Air 12/05/19 20:34 68 128/44 12/05/19 20:33 128/44 12/05/19 20:00 68 12/05/19 20:00 98.4 67 18 128/44 (72) 99 12/05/19 16:00 67 12/05/19 16:00 96.8 69 19 145/46 (79) 98 12/05/19 14:06 76 188/69 12/05/19 12:00 99.1 73 20 180/73 (108) 96 12/05/19 12:00 75 12/05/19 11:45 63 207/71 12/05/19 11:31 73 206/58 12/05/19 09:00 Room Air 12/05/19 08:23 207/71 12/05/19 08:18 63 207/71 Intake and Output 12/05/19 12/06/19 19:00 07:00 # Bowel Movements 1 1 Laboratory Tests 12/05/19 10:05: Stool Occult Blood [Pending] 12/05/19 13:06: POC Whole Blood Glucose 228H 12/05/19 15:55: Creatinine 3.2H, Estimat Glomerular Filtration Rate 13.8 12/06/19 07:26: Creatinine [Pending], Estimat Glomerular Filtration Rate [Pending], White Blood Count [Pending], Red Blood Count [Pending], Hemoglobin [Pending], Hematocrit [ Pending], Mean Corpuscular Volume [Pending], Mean Corpuscular Hemoglobin [ Pending], Mean Corpuscular Hemoglobin Concent [Pending], Red Cell Distribution Width [Pending], Platelet Count [Pending], Mean Platelet Volume [Pending], Neutrophils (%) (Auto) [Pending], Lymphocytes (%) (Auto) [Pending], Monocytes (% ) (Auto) [Pending], Eosinophils (%) (Auto) [Pending], Basophils (%) (Auto) [ Pending], Sodium Level [Pending], Potassium Level [Pending], Chloride Level [ Pending], Carbon Dioxide Level [Pending], Blood Urea Nitrogen [Pending], Glucose Level [Pending], Uric Acid [Pending], Calcium Level [Pending], Phosphorus Level [Pending], Total Creatine Kinase [Pending], Triglycerides Level [Pending], Cholesterol Level [Pending], LDL Cholesterol [Pending], HDL Cholesterol [Pending], Cholesterol/HDL Ratio [Pending], Thyroid Stimulating Hormone (TSH) [Pending], Hepatitis A IgM Antibody [Pending], Hepatitis B Surface Antigen [Pending], Hepatitis B Core IgM Antibody [Pending], Hepatitis C Antibody [Pending] Height (Feet): 5 Height (Inches): 4.00 Weight (Pounds): 165 Objective GENERAL: A well-developed female, no significant distress. Advanced age. HEENT: Negative. Extraocular motions are grossly intact. NECK: Supple. LUNGS: Fairly good air entry. No rhonchi or wheezes. CARDIAC: S1, S2. Regular rate and rhythm. Positive S4. No murmurs. ABDOMEN: Soft, nontender. EXTREMITIES: No edema. Patient is kyphotic. No cyanosis. Abel Luna MD Dec 06, 2019 08:17
[2019-12-06 08:19] LABS: BASOPHILS % (AUTO) 0.9 % (0.0-2.0); EOSINOPHILS % (AUTO) 0.6 % (0.0-3.0); HEMATOCRIT 34.8 % (37.0-47.0); HEMOGLOBIN 11.6 G/DL (12.0-16.0); LYMPHOCYTES % (AUTO) 9.6 % (20.0-45.0); MEAN CORPUSCULAR VOLUME 91 FL (80-99); MONOCYTES % (AUTO) 6.6 % (1.0-10.0); NEUTROPHILS % (AUTO) 82.3 % (45.0-75.0); PLATELET COUNT 196 K/UL (150-450); RED BLOOD COUNT 3.84 M/UL (4.20-5.40); RED CELL DISTRIBUTION WIDTH 13.2 % (11.6-14.8); WHITE BLOOD COUNT 7.6 K/UL (4.8-10.8)
[2019-12-06 08:28] LABS: ANION GAP 14 mmol/L (5-15); BLOOD UREA NITROGEN 74 mg/dL (7-18); CALCIUM 7.8 MG/DL (8.5-10.1); CARBON DIOXIDE 23 MMOL/L (21-32); CHLORIDE 106 MMOL/L (98-107); CREATININE 3.3 MG/DL (0.55-1.30); POTASSIUM 3.7 MMOL/L (3.5-5.1); SODIUM 142 MMOL/L (136-145)
[2019-12-06 08:38] LABS: CHOLESTEROL 145 MG/DL (< 200); CREATINE KINASE 177 U/L (26-308); HDL CHOLESTEROL 48 MG/DL (40-60); TRIGLYCERIDES 144 MG/DL (30-150)
[2019-12-06] MEDS: ISOSORBIDE MONONITRATE 120 MG ORAL SCH (08:41)
[2019-12-06] MEDS: Magnesium Oxide 400mg tab ORAL SCH ×3 (08:42→17:22)
[2019-12-06] MEDS: Eliquis 2.5mg tablet ORAL SCH ×2 (08:42→17:23)
[2019-12-06] MEDS: Minoxidil 2.5mg tab ORAL SCH ×2 (08:43→20:29)
[2019-12-06] MEDS: Labetalol 200mg tab ORAL SCH ×2 (08:43→20:31)
[2019-12-06] MEDS ORDERED: Pantoprazole Inj IV SCH (09:00)
[2019-12-06] MEDS ORDERED: Vitamin D 50,000 units cap ORAL SCH (09:00)
--- NOTE | 2019-12-06 10:10 | Diagnostic Imaging Report ---
EXAM: CT Head Without Intravenous Contrast CLINICAL HISTORY: PAIN TECHNIQUE: Axial computed tomography images of the head/brain without intravenous contrast. CTDI is 53.4 mGy and DLP is 1045.5 mGy-cm. One or more of the following dose reduction techniques were used: automated exposure control, adjustment of the mA and/or kV according to patient size, use of iterative reconstruction technique. COMPARISON: CT head on 11/09/2019 FINDINGS: Brain: No acute infarct or hemorrhage identified. No extra-axial fluid collection. No mass effect or midline shift. Stable areas of hypoattenuation in the supratentorial white matter likely represent chronic small vessel ischemic changes. Stable calcifications in the basal ganglia. Stable suprasellar mass. Ventricles and sulci: Stable prominence of the ventricles and sulci is likely secondary to cerebral volume loss. Bones: Normal. No bony lesion or fracture. Subcutaneous tissues: Question right temporal soft tissue swelling partially visualized. Sinuses: Mild mucosal thickening in the sphenoid sinuses, frontal sinuses, maxillary sinuses, and ethmoid air cells. Mastoid air cells: Fluid throughout the right mastoid air cells. Orbits: Grossly unremarkable. Other: Atherosclerotic calcifications in the intracranial vasculature. Cerumen in the external auditory canals. IMPRESSION: 1. No acute intracranial abnormality. 2. Stable chronic small vessel ischemic changes and cerebral volume loss. 3. Stable suprasellar mass. 4. Stable fluid throughout the right mastoid air cells.
[2019-12-06] MEDS: traMADol 50mg tab ORAL PRN ×2 (11:06→17:24)
--- NOTE | 2019-12-06 11:13 | Nephrology Progress Note ---
Assessment/Plan Plan CKD 4 Anemia of CKD HTN CVD See orders. Subjective Subjective No new c/o Objective Objective Last 24 Hour Vital Signs Date Time Temp Pulse Resp B/P (MAP) Pulse Ox O2 Delivery O2 Flow Rate FiO2 12/06/19 10:00 Room Air 12/06/19 08:43 181/59 12/06/19 08:43 75 181/59 12/06/19 08:00 80 12/06/19 08:00 97.7 75 18 181/59 (99) 98 12/06/19 04:00 72 12/06/19 04:00 96.8 22 150/50 (83) 95 12/06/19 00:00 97.7 66 22 151/50 (83) 97 12/06/19 00:00 64 12/05/19 21:00 Room Air 12/05/19 20:34 68 128/44 12/05/19 20:33 128/44 12/05/19 20:00 68 12/05/19 20:00 98.4 67 18 128/44 (72) 99 12/05/19 16:00 67 12/05/19 16:00 96.8 69 19 145/46 (79) 98 12/05/19 14:06 76 188/69 12/05/19 12:00 99.1 73 20 180/73 (108) 96 12/05/19 12:00 75 12/05/19 11:45 63 207/71 12/05/19 11:31 73 206/58 Intake and Output 12/05/19 12/06/19 19:00 07:00 # Bowel Movements 1 1 Laboratory Tests 12/05/19 13:06: POC Whole Blood Glucose 228H 12/05/19 15:55: Creatinine 3.2H, Estimat Glomerular Filtration Rate 13.8 12/06/19 07:26: Creatinine 3.3H, Estimat Glomerular Filtration Rate 13.3, White Blood Count 7.6# , Red Blood Count 3.84L, Hemoglobin 11.6#L, Hematocrit 34.8#L, Mean Corpuscular Volume 91, Mean Corpuscular Hemoglobin 30.1, Mean Corpuscular Hemoglobin Concent 33.2, Red Cell Distribution Width 13.2, Platelet Count 196, Mean Platelet Volume 8.4, Neutrophils (%) (Auto) 82.3H, Lymphocytes (%) (Auto) 9.6L, Monocytes (%) (Auto) 6.6, Eosinophils (%) (Auto) 0.6, Basophils (%) (Auto) 0.9, Sodium Level 142, Potassium Level 3.7, Chloride Level 106, Carbon Dioxide Level 23, Anion Gap 14, Blood Urea Nitrogen 74H, Glucose Level 226#H, Uric Acid 7.3H, Calcium Level 7.8L, Phosphorus Level 4.8, Total Creatine Kinase 177, Triglycerides Level 144, Cholesterol Level 145, LDL Cholesterol 70, HDL Cholesterol 48, Cholesterol/HDL Ratio 3.0L, Thyroid Stimulating Hormone (TSH) 3.005, Hepatitis A IgM Antibody [Pending], Hepatitis B Surface Antigen [Pending] , Hepatitis B Core IgM Antibody [Pending], Hepatitis C Antibody [Pending] Height (Feet): 5 Height (Inches): 4.00 Weight (Pounds): 165 Objective CV RR Lungs CTA Abd SNT. BS + E No CCE Leanna Grover MD Dec 06, 2019 11:13
[2019-12-06 12:00] VITALS: BP 159/66
[2019-12-06 16:00] VITALS: BP 177/55
[2019-12-06 20:00] VITALS: BP 172/50
[2019-12-06] MEDS: Atorvastatin 20mg tab ORAL SCH (20:31)
[2019-12-07] VITALS: BP 146/43
--- NOTE | 2019-12-07 02:00 | Progress Note ---
DATE: 12/06/2019 SUBJECTIVE: The patient continues to have increasing blood pressure parameters. No apparent pain. No shortness of breath. Saturating adequately on room air. OBJECTIVE: VITAL SIGNS: Blood pressure 150/50 to 180/70, heart rate in the 60s, respiratory rate 22, and afebrile. A 1+ edema. LUNGS: Diminished breath sounds with few rales. CARDIAC: Regular rhythm and rate. Normal S1, S2 with a fourth heart sound. EXTREMITIES: Trace edema. LABORATORY DATA: White count 7.6 and hemoglobin 11.6. BUN 74 and creatinine 3.3. Sodium 142, potassium 3.7, and bicarb 23. IMPRESSION: 1. Hypertensive heart disease. 2. Chronic kidney disease. 3. Anemia of chronic kidney disease. 4. Acute on chronic diastolic congestive heart failure. 5. History of DVT. PLAN: 1. Continue full anticoagulation. 2. Decrease statin dosing based on current lipid parameters. 3. Up titrate antihypertensive regimen. 4. We will follow and adjust based on clinical parameters. 5. Continue full anticoagulation with apixaban. Parker Bennett M.D. DR: CHIQUITA JOB#: [id number] CC:
[2019-12-07 04:00] VITALS: BP 170/51
[2019-12-07] MEDS: NovoLOG Insulin Flexpen SUBQ SCH ×2 (06:05→12:28)
[2019-12-07] MEDS: traMADol 50mg tab ORAL PRN (06:10)
[2019-12-07 07:43] LABS: BASOPHILS % (AUTO) 0.8 % (0.0-2.0); EOSINOPHILS % (AUTO) 0.6 % (0.0-3.0); HEMATOCRIT 31.6 % (37.0-47.0); HEMOGLOBIN 10.5 G/DL (12.0-16.0); LYMPHOCYTES % (AUTO) 10.1 % (20.0-45.0); MEAN CORPUSCULAR VOLUME 91 FL (80-99); MONOCYTES % (AUTO) 9.7 % (1.0-10.0); NEUTROPHILS % (AUTO) 78.9 % (45.0-75.0); PLATELET COUNT 172 K/UL (150-450); RED BLOOD COUNT 3.47 M/UL (4.20-5.40); RED CELL DISTRIBUTION WIDTH 13.4 % (11.6-14.8); WHITE BLOOD COUNT 8.4 K/UL (4.8-10.8)
[2019-12-07 07:48] LABS: ANION GAP 11 mmol/L (5-15); BLOOD UREA NITROGEN 71 mg/dL (7-18); CALCIUM 7.5 MG/DL (8.5-10.1); CARBON DIOXIDE 23 MMOL/L (21-32); CHLORIDE 105 MMOL/L (98-107); CREATININE 3.7 MG/DL (0.55-1.30); SODIUM 139 MMOL/L (136-145)
[2019-12-07 08:00] VITALS: BP 175/67
[2019-12-07 08:02] LABS: % IRON SATURATION 15 % (15-50); IRON 30 ug/dL (50-175); TOTAL IRON BINDING CAPACITY 195 ug/dL (250-450)
--- NOTE | 2019-12-07 08:44 | General Progress Note ---
Assessment/Plan Assessment/Plan: IMPRESSION: Noted significant anemia s/p transfusion, possible GI bleed versus anemia of chronic disease, chronic renal failure, possible fluid overload with significantly elevated natriuretic peptide, compression fracture with associated back pain, no recent history of fall, osteopenia, osteoporosis, hypertension, diabetes, DVT, per history. Headaches, suprasellar mass; stable facial swelling PLAN care noted d/w daughter who wants her to be discharged and to follow up with her [facility] physicians head CT monitor renal function and fluid status appreciate consultants may need ENT eval impression, plan, and exam edited and reviewed in detail care discussed with RN Subjective Allergies: Coded Allergies: CODEINE (Verified Allergy, Unknown, 11/09/19) Subjective noted headaches right side facial swelling Objective Last 24 Hour Vital Signs Date Time Temp Pulse Resp B/P (MAP) Pulse Ox O2 Delivery O2 Flow Rate FiO2 12/07/19 08:00 73 12/07/19 08:00 98.2 74 18 175/67 (103) 95 12/07/19 06:40 98.6 12/07/19 04:00 98.6 68 19 170/51 (90) 95 12/07/19 04:00 67 12/07/19 00:00 98.4 71 21 146/43 (77) 95 12/07/19 00:00 69 12/06/19 21:00 Room Air 12/06/19 20:31 68 172/50 12/06/19 20:29 172/50 12/06/19 20:00 64 12/06/19 20:00 98.6 68 22 172/50 (90) 96 12/06/19 16:00 66 12/06/19 16:00 98.1 71 20 177/55 (95) 100 12/06/19 12:00 68 12/06/19 12:00 98.1 69 19 159/66 (97) 97 12/06/19 10:00 Room Air 12/06/19 08:43 181/59 12/06/19 08:43 75 181/59 Intake and Output 12/06/19 12/07/19 19:00 07:00 Intake Total 120 ml Balance 120 ml Intake Oral 120 ml # Bowel Movements 1 1 Laboratory Tests 12/06/19 11:46: POC Whole Blood Glucose 316H 12/06/19 16:31: POC Whole Blood Glucose 224H 12/07/19 07:04: White Blood Count 8.4, Red Blood Count 3.47L, Hemoglobin 10.5L, Hematocrit 31.6L , Mean Corpuscular Volume 91, Mean Corpuscular Hemoglobin 30.3, Mean Corpuscular Hemoglobin Concent 33.3, Red Cell Distribution Width 13.4, Platelet Count 172, Mean Platelet Volume 8.3, Neutrophils (%) (Auto) 78.9H, Lymphocytes ( %) (Auto) 10.1L, Monocytes (%) (Auto) 9.7, Eosinophils (%) (Auto) 0.6, Basophils (%) (Auto) 0.8, Sodium Level 139, Potassium Level 4.0, Chloride Level 105, Carbon Dioxide Level 23, Anion Gap 11, Blood Urea Nitrogen 71H, Creatinine 3.7H, Estimat Glomerular Filtration Rate 11.6, Glucose Level 257H, Calcium Level 7.5L, Iron Level 30L, Total Iron Binding Capacity 195L, Percent Iron Saturation 15, Unsaturated Iron Binding 165 Height (Feet): 5 Height (Inches): 4.00 Weight (Pounds): 165 Objective GENERAL: A well-developed female, no significant distress. Advanced age. HEENT: Negative. right facial swelling NECK: Supple. LUNGS: Fairly good air entry. No rhonchi or wheezes. CARDIAC: S1, S2. Regular rate and rhythm. Positive S4. No murmurs. ABDOMEN: Soft, nontender. EXTREMITIES: No edema. Patient is kyphotic. No cyanosis. Abel Luna MD Dec 07, 2019 08:44
[2019-12-07] MEDS: Eliquis 2.5mg tablet ORAL SCH (08:53)
[2019-12-07] MEDS: Magnesium Oxide 400mg tab ORAL SCH ×2 (08:53→12:27)
[2019-12-07] MEDS: Minoxidil 2.5mg tab ORAL SCH (08:54)
[2019-12-07] MEDS: ISOSORBIDE MONONITRATE 120 MG ORAL SCH (08:55)
[2019-12-07 08:56] VITALS: BP 175/67
[2019-12-07] MEDS: Labetalol 200mg tab ORAL SCH (08:56)
--- NOTE | 2019-12-07 09:05 | Nephrology Progress Note ---
Assessment/Plan Plan CKD 5 on 25 h creatinine clearance 11! Needs close f/u. Dw pt's daughter Anemia of CKD HTN CVD See orders. Subjective Subjective No new c/o Objective Objective Last 24 Hour Vital Signs Date Time Temp Pulse Resp B/P (MAP) Pulse Ox O2 Delivery O2 Flow Rate FiO2 12/07/19 08:56 73 175/67 12/07/19 08:54 175/67 12/07/19 08:00 73 12/07/19 08:00 98.2 74 18 175/67 (103) 95 12/07/19 06:40 98.6 12/07/19 04:00 98.6 68 19 170/51 (90) 95 12/07/19 04:00 67 12/07/19 00:00 98.4 71 21 146/43 (77) 95 12/07/19 00:00 69 12/06/19 21:00 Room Air 12/06/19 20:31 68 172/50 12/06/19 20:29 172/50 12/06/19 20:00 64 12/06/19 20:00 98.6 68 22 172/50 (90) 96 12/06/19 16:00 66 12/06/19 16:00 98.1 71 20 177/55 (95) 100 12/06/19 12:00 68 12/06/19 12:00 98.1 69 19 159/66 (97) 97 12/06/19 10:00 Room Air Intake and Output 12/06/19 12/07/19 19:00 07:00 Intake Total 120 ml Balance 120 ml Intake Oral 120 ml # Bowel Movements 1 1 Laboratory Tests 12/06/19 11:46: POC Whole Blood Glucose 316H 12/06/19 16:31: POC Whole Blood Glucose 224H 12/07/19 07:04: White Blood Count 8.4, Red Blood Count 3.47L, Hemoglobin 10.5L, Hematocrit 31.6L , Mean Corpuscular Volume 91, Mean Corpuscular Hemoglobin 30.3, Mean Corpuscular Hemoglobin Concent 33.3, Red Cell Distribution Width 13.4, Platelet Count 172, Mean Platelet Volume 8.3, Neutrophils (%) (Auto) 78.9H, Lymphocytes ( %) (Auto) 10.1L, Monocytes (%) (Auto) 9.7, Eosinophils (%) (Auto) 0.6, Basophils (%) (Auto) 0.8, Sodium Level 139, Potassium Level 4.0, Chloride Level 105, Carbon Dioxide Level 23, Anion Gap 11, Blood Urea Nitrogen 71H, Creatinine 3.7H, Estimat Glomerular Filtration Rate 11.6, Glucose Level 257H, Calcium Level 7.5L, Iron Level 30L, Total Iron Binding Capacity 195L, Percent Iron Saturation 15, Unsaturated Iron Binding 165 Height (Feet): 5 Height (Inches): 4.00 Weight (Pounds): 165 Objective CV RR Lungs CTA Abd SNT. BS + E No CCE Leanna Grover MD Dec 07, 2019 09:05
[2019-12-07 09:56] LABS: ANION GAP 8 mmol/L (5-15); BLOOD UREA NITROGEN 69 mg/dL (7-18); CALCIUM 7.5 MG/DL (8.5-10.1); CARBON DIOXIDE 24 MMOL/L (21-32); CHLORIDE 105 MMOL/L (98-107); CREATININE 3.6 MG/DL (0.55-1.30); POTASSIUM 4.3 MMOL/L (3.5-5.1); SODIUM 137 MMOL/L (136-145)
[2019-12-07] MEDS ORDERED: Gentamicin 0.3% Opth Soln 5ml RIGHT EYE SCH (13:00)
--- NOTE | 2019-12-07 19:42 | General Progress Note ---
Assessment/Plan Assessment/Plan: Assessment/Plan Assessment/Plan: 1. Chronic kidney disease stage 4. 2. Anemia, chronic. Baseline about 8. 3. Diabetes. 4. Hypertension. 5. History of coronary artery disease. 6. History of DVT. fu stool ob --> (-) s/p one unit prbc fu H&H ppi d/c planning Subjective Allergies: Coded Allergies: CODEINE (Verified Allergy, Unknown, 11/09/19) Subjective feels OK no abd pain tolerating PO OB (-) Objective Last 24 Hour Vital Signs Date Time Temp Pulse Resp B/P (MAP) Pulse Ox O2 Delivery O2 Flow Rate FiO2 12/07/19 12:00 64 12/07/19 09:00 Room Air 12/07/19 08:56 73 175/67 12/07/19 08:54 175/67 12/07/19 08:00 73 12/07/19 08:00 98.2 74 18 175/67 (103) 95 12/07/19 06:40 98.6 12/07/19 04:00 98.6 68 19 170/51 (90) 95 12/07/19 04:00 67 12/07/19 00:00 98.4 71 21 146/43 (77) 95 12/07/19 00:00 69 12/06/19 21:00 Room Air 12/06/19 20:31 68 172/50 12/06/19 20:29 172/50 12/06/19 20:00 64 12/06/19 20:00 98.6 68 22 172/50 (90) 96 Intake and Output 12/06/19 12/07/19 19:00 07:00 Intake Total 120 ml Balance 120 ml Intake Oral 120 ml # Bowel Movements 1 1 Laboratory Tests 12/07/19 07:04: White Blood Count 8.4, Red Blood Count 3.47L, Hemoglobin 10.5L, Hematocrit 31.6L , Mean Corpuscular Volume 91, Mean Corpuscular Hemoglobin 30.3, Mean Corpuscular Hemoglobin Concent 33.3, Red Cell Distribution Width 13.4, Platelet Count 172, Mean Platelet Volume 8.3, Neutrophils (%) (Auto) 78.9H, Lymphocytes ( %) (Auto) 10.1L, Monocytes (%) (Auto) 9.7, Eosinophils (%) (Auto) 0.6, Basophils (%) (Auto) 0.8, Sodium Level 139, Potassium Level 4.0, Chloride Level 105, Carbon Dioxide Level 23, Anion Gap 11, Blood Urea Nitrogen 71H, Creatinine 3.7H, Estimat Glomerular Filtration Rate 11.6, Glucose Level 257H, Calcium Level 7.5L, Iron Level 30L, Total Iron Binding Capacity 195L, Percent Iron Saturation 15, Unsaturated Iron Binding 165 12/07/19 09:15: Sodium Level 137, Potassium Level 4.3, Chloride Level 105, Carbon Dioxide Level 24, Anion Gap 8, Blood Urea Nitrogen 69H, Creatinine 3.6H, Estimat Glomerular Filtration Rate 12.0, Glucose Level 345H, Calcium Level 7.5L Height (Feet): 5 Height (Inches): 4.00 Weight (Pounds): 165 Objective NCAT supple CTA RR abd soft ND NT no edema Don Tinoco MD Dec 07, 2019 19:42
[2019-12-07] MEDS ORDERED: Atorvastatin 20mg tab ORAL SCH (21:00)
[2019-12-07] MEDS ORDERED: Epoetin Alfa-EPBX (NON ESRD)4000 units/ml vial SUBQ SCH (21:00)
[2019-12-07] MEDS ORDERED: Iron Sucrose 100 MG in NS 55 ML IV SCH (21:00)
--- NOTE | 2019-12-08 04:14 | Progress Note ---
DATE: 12/07/2019 CARDIOLOGY PROGRESS NOTE SUBJECTIVE: Patient has improved, but not has recovered completely. Family members wanted to complete care with her primary care physician. The patient continues to have elevated blood pressure reading and renal parameters are remained significantly impaired. Monitored rhythm sinus. PHYSICAL EXAMINATION: VITAL SIGNS: Blood pressure 175/67, heart rate 74, respiratory rate 18, afebrile, oxygen saturation on room air 95%. LUNGS: Bilateral breath sounds. Rhonchi. CARDIAC: Regular rhythm and rate. Normal S1, S2. ABDOMEN: Soft. EXTREMITIES: 1+ dependent edema. LABORATORY DATA: White count 8.4, hemoglobin 10.5. Potassium 4.3, BUN 69, creatinine 3.6, glucose 345. IMPRESSION: 1. Hypertensive heart disease with labile blood pressure. 2. Acute on chronic renal failure. 3. Anemia of chronic kidney disease. 4. Acute on chronic diastolic congestive heart failure. 5. History of DVT, on full anticoagulation. 6. History of coronary artery disease with stable angina. PLAN: 1. Advancing antihypertensive regimen. 2. Iron replacement and Epogen. 3. Continue full anticoagulation. 4. Maintain anti-lipid therapy. 5. Stable for transfer to tertiary care facility under the care of her primary care physicians. Parker Bennett M.D. DR: WENDIE JOB#: [id number] CC:
--- NOTE | 2019-12-08 17:51 | Discharge Summary ---
Discharge Summary Discharge Summary _ DATE OF ADMISSION: 12/05/2019 DATE OF DISCHARGE: 12/07/2019 DISCHARGED BY: Dr. Luna REASON FOR ADMISSION: [] 84 years old female with past medical history chronic kidney disease, congestive heart of diastolic congestive heart failure, anemia, pulmonary edema , hypertension, diabetes mellitus, history of DVT, on chronic anticoagulation with Eliquis, presented with intermittent lumbar back pain. Patient had a work- up including x-ray of the chest which showed cardiomegaly. CT of the abdomen showed L2 compression fracture and possible mild colitis, fecal impaction and spine CT confirmed the above with osteopenia. Patient follow-up with fall intern and research intern as outpatient. Patient diagnosed with renal failure congestive heart shortly after initial evaluation emergency department patient was diagnosed with a renal failure lumbar compression fracture congestive heart failure anemia and admitted for further management. CONSULTANTS: research intern GI specialist Dr. Tinoco fall intern Dr. Chen HOSPITAL COURSE: Patient admitted to telemetry floor. Home medication resumed. Patient was transfused with 2 units of packed red blood cells for hemoglobin 7.1. Prior to discharge hemoglobin 10.5 , hematocrit 31.6. Hepatitis serology was negative. Stool for occult blood was negative. Anemia work-up revealed evidence of anemia of chronic disease, liekly due to chronic kidney disease. Patient started on iron and Epogen. Echocardiogram demonstrated preserved ejection fraction of 60% with mild left ventricular hypertrophy. No evidence of wall motion abnormality to the extent visualized. Right ventricular systolic pressure of 36 consistent with a mild pulmonary hypertension. Mild to moderate mitral regurgitation noted. Volumes were closely monitored. No diuretic therapy at this time as per research intern. Antihypertensive regimen uptitrated with multiple antihypertensive medications. Blood pressure stabilized. Eliquis continued. GI prophylaxis provided. Lipid panel was stable. Statin dose decreased. TSH within normal limits. Blood sugar was managed with sliding scale of insulin. Internal Medicine Specialist closely followed. Urine studies were done. Creatinine clearance 13. Patient's renal function was discussed with her daughter. Patient to follow-up as outpatient with fall intern. Fall precaution maintained. Pain management was addressed as needed. Bowel regimen instituted. Supportive care provided. Patient clinically stabilized and was ready for discharge. FINAL DIAGNOSES: Acute and chronic kidney disease stage 5 Anemia of chronic kidney disease Hypertensive heart disease with labile blood pressure History of DVT, on full anticoagulation Acute on chronic diastolic congestive heart failure History of coronary artery disease with stable angina Lumbar compression fracture associated back pain Osteopenia Osteoporosis Diabetes mellitus DISCHARGE MEDICATIONS: See Medication Reconciliation list. DISCHARGE INSTRUCTIONS: Patient was discharged home. Follow-up with a primary care provider in 1 week. I have been assigned to dictate discharge summary for this account. I was not involved in the patient's management. Kate Jc NP Dec 08, 2019 17:51
== END 2019-12-07 15:33 | disposition home or self-care (01) | DRG 194 ==
LOC: EMR 21:25 → EDBEDREQ 12-05 00:39 → 2E 12-05 00:55
PROC: 30233N1 Transfusion of Nonautologous Red Blood Cells into Peripheral Vein, Percutaneous Approach (ICD-10-PCS; principal; 2019-12-05)
DX: I13.2 Hypertensive heart and chronic kidney disease with heart failure and with stage 5 chronic kidney disease, or end stage renal disease (principal); N17.9 Acute kidney failure, unspecified; D63.8 Anemia in other chronic diseases classified elsewhere; I50.33 Acute on chronic diastolic (congestive) heart failure; E11.22 Type 2 diabetes mellitus with diabetic chronic kidney disease; D35.2 Benign neoplasm of pituitary gland; N18.5 Chronic kidney disease, stage 5; M81.0 Age-related osteoporosis without current pathological fracture; Z79.01 Long term (current) use of anticoagulants; Z86.718 Personal history of other venous thrombosis and embolism; S32.000D Wedge compression fracture of unspecified lumbar vertebra, subsequent encounter for fracture with routine healing; X58.XXXD Exposure to other specified factors, subsequent encounter; I25.118 Atherosclerotic heart disease of native coronary artery with other forms of angina pectoris; Z88.6 Allergy status to analgesic agent; I34.0 Nonrheumatic mitral (valve) insufficiency; I27.20 Pulmonary hypertension, unspecified
CPT/HCPCS: 36415; 70450; 71045; 72131; 74176; 80048; 80053; 80061; 81001; 81050; 82270; 82550; 82575; 82962; 83540; 83550; 83690; 83880; 84100; 84156; 84443; 84484; 84550; 85007; 85025; 85610; 85651; 85730; 86140; 86705; 86709; 86803; 86850; 86900; 86901; 86920; 87340; 93005; 93306; 99285; J1815; J2405; U0002